=== PATIENT | female | born 1925 | race Caucasian/White ===

== ENCOUNTER 2017-02-15 10:28 | Inpatient (IN) | payer MEDICARE, OTHER ==
--- NOTE | 2017-02-07 23:24 | HP ---
HISTORY AND PHYSICAL: DATE OF OFFICE VISIT: 02/07/17 DATE OF SURGERY: 02/15/17 SURGEON: Savanah Jarrell MD PROCEDURE: Right total hip arthroplasty. CHIEF COMPLAINT: Right hip pain. HISTORY OF PRESENT ILLNESS: Ms. Tavares is an 89-year-old female with complaints of right hip pain. She has failed conservative management and has elected to proceed with a right total hip arthroplasty, which is scheduled for 02/15/[address] Jarrell. PAST MEDICAL HISTORY: 1. Hypertension. 2. High cholesterol. 3. Osteoarthritis. 4. Melanoma. PAST SURGICAL HISTORY: 1. Hysterectomy. 2. Tonsillectomy. 3. Right carpal tunnel release. 4. Left ear surgery. 5. Right rotator cuff repair. MEDICATIONS: 1. Amlodipine. 2. Aspirin. 3. Fentanyl patch. 4. Losartan/hydrochlorothiazide. ALLERGIES: No known drug allergies. FAMILY HISTORY: Breast cancer and lung cancer. SOCIAL HISTORY: She is an 89-year-old female, lives alone. She does not smoke or use drugs. REVIEW OF SYSTEMS: A complete 14-point review of systems is reviewed with the patient and all is negative or noncontributory. PHYSICAL EXAMINATION GENERAL: She is well developed and well nourished, in no acute distress. VITAL SIGNS: She stands 5 feet and 2 inches tall and weighs 130 pounds. Her blood pressure 162/79 and her heart rate 70. HEENT: Normocephalic, atraumatic. NECK: Supple. No palpable lymph nodes. PULMONARY: Lungs are clear to auscultation bilaterally. No wheezes, rhonchi, or rales. CARDIO: Regular rate and rhythm. Strong S1 and S2. No murmurs, gallops, or rubs. ABDOMEN: Soft, nontender, and nondistended. MUSCULOSKELETAL: Right lower extremity, the skin is intact. She has a limited range of motion with internal and external rotation of her right hip. She has 2 + dorsalis pedis pulses. Lower extremity muscle group strengths were intact at 5/5. She walks with a slightly antalgic type gait favoring the right hip. NEUROLOGIC: She is alert and oriented x3. Cranial nerves II through XII are intact. ASSESSMENT AND PLAN: Ms. Tavares is an 89-year-old female with complaints of right hip pain secondary to advanced osteoarthritis. She has failed conservative management and has elected to proceed with a right total hip arthroplasty, the surgery is scheduled for 02/15/[address] Jarrell discussed the risks and benefits of the surgery at today's visit and all of her questions were answered. Coumadin was sent to her pharmacy today for post- operative DVT prophylaxis. She has an extreme INTOLERANCE TO ALL PAIN MEDICATIONS at today's visit. I did preemptively sent Zofran for postoperative nausea as well as Colace and the pain medication will be decided following the surgery. She will see Dr. Jarrell back in 10 to 14 days after the surgery. TARIQ LIU [id number]/CPS #: [id number] MTDD
[~2017-02-15 10:28] MED LIST: Buffered Lidocaine 1% SYRIN* 3 ML/SYR SYRINGE INTRADERM ONE; Dexamethasone IV* 4 MG/ML 1 ML (4 MG) IV SLOW PU ONE; DiMENhydriNATE IV* 50 MG/ML VIAL IV PUSH PRN; Famotidine IV* 10 MG/ML 2 ML (20 mg) IV ONE; HYDROmorphone* 1 MG/ML 1 ML SYR IV PRN; HYDROmorphone* 1 MG/ML 1 ML SYR ONE; Meperidine SYRINGE* 50 MG/ML ONE; Midazolam* 1 MG/ML 2 ML VIAL (2 MG) ONE; Morphine PF AMP (0.5MG/ML)* 5 MG/10 ML AMP ONE; Ondansetron INJ* 2 MG/ML VIAL IV PRN; PROCHLORPERAZINE INJ 5 MG/ML 2 ML VIAL IV PRN; fentaNYL* 50 MCG/ML 2 ML VIAL (100 MCG VIAL) IV PRN; fentaNYL* 50 MCG/ML 2 ML VIAL (100 MCG VIAL) ONE
[2017-02-15] MEDS ORDERED: fentaNYL* 50 MCG/ML 2 ML VIAL (100 MCG VIAL) ONE ×3 (11:03→15:44)
[2017-02-15] MEDS ORDERED: HYDROmorphone* 1 MG/ML 1 ML SYR ONE ×3 (11:03→15:42)
[2017-02-15] MEDS ORDERED: ceFAZolin 2 GM PREMIX(*) 2 GM/50 ML BAG IVPB ONE (11:30)
[2017-02-15] MEDS ORDERED: Famotidine IV* 10 MG/ML 2 ML (20 mg) ONE (11:30)
[2017-02-15] MEDS ORDERED: Dexamethasone IV* 4 MG/ML 1 ML (4 MG) ONE (11:30)
[2017-02-15] MEDS ORDERED: Meperidine SYRINGE* 50 MG/ML ONE (14:35)
[2017-02-15] MEDS ORDERED: EPHEDrine (Pressors)* 50 MG/ML VIAL ONE (14:56)
[2017-02-15] MEDS ORDERED: Naloxone* 0.4 MG/ML 1 ML VIAL IV PRN (14:59)
[2017-02-15] MEDS ORDERED: oxyCODONE/Acetamin 5/325 MG* TAB PO PRN ×3 (14:59→16:18)
[2017-02-15] MEDS ORDERED: PROCHLORPERAZINE INJ 5 MG/ML 2 ML VIAL IV PRN (14:59)
[2017-02-15] MEDS ORDERED: Ondansetron INJ* 2 MG/ML VIAL IV PRN (14:59)
[2017-02-15] MEDS ORDERED: DiMENhydriNATE IV* 50 MG/ML VIAL IV PUSH PRN (14:59)
--- NOTE | 2017-02-15 15:32 | RAD ---
INDICATION: Right total hip replacement surgery. COMPARISON: Comparison is made with a prior x-ray study of the right hip from January 28, 2017. TECHNIQUE: An AP view of the pelvis was obtained in the operating room. FINDINGS: The patient is undergoing a total right hip replacement surgery. The acetabular prostheses is in place. There is a femoral prostheses template in place. IMPRESSION: INTRAOPERATIVE CONTROL FILMS.
[2017-02-15] MEDS ORDERED: Morphine INJ* 2 MG/ML 1 ML SYRINGE IV PRN (16:18)
[2017-02-15] MEDS ORDERED: LACTULOSE* 30 ML UDC PO PRN (16:18)
[2017-02-15] MEDS ORDERED: Bisacodyl SUPP* 10 MG SUPP PR PRN (16:18)
[2017-02-15] MEDS ORDERED: Ondansetron TAB* 4 MG PO PRN (16:18)
[2017-02-15] MEDS ORDERED: oxyCODONE TAB* 5 MG TAB PO PRN (16:18)
[2017-02-15] MEDS ORDERED: diPHENhydraMINE IV* 50 MG/ML 1 ml VIAL (BENADRYL) IV PRN (16:18)
[2017-02-15] MEDS ORDERED: Polyethylene Glycol 3350* 17 GM PACKET PO PRN (16:18)
[2017-02-15] MEDS ORDERED: Acetaminophen TAB* 325 MG PO PRN (16:18)
[2017-02-15] MEDS ORDERED: Meclizine TAB* 12.5 MG PO PRN (16:29)
[2017-02-15] MEDS ORDERED: Warfarin TAB(*) 6 MG PO ONE ×2 (17:00→20:00)
--- NOTE | 2017-02-15 17:19 | RAD ---
HISTORY: Status post right hip arthroplasty COMPARISONS: February 15, 2017 VIEWS: 3, frontal views of the pelvis with frontal and crosstable lateral views of the right hip FINDINGS: BONE DENSITY: Normal. BONES: The patient is status post right hip arthroplasty. There is no hardware failure or osteolysis. JOINTS: The patient is status post right hip arthroplasty. There is advanced osteoarthritis of left hip ALIGNMENT: There is no dislocation. SOFT TISSUES: Unremarkable. OTHER FINDINGS: None. IMPRESSION: STATUS POST RIGHT HIP ARTHROPLASTY
[2017-02-15] MEDS ORDERED: Ondansetron INJ* 2 MG/ML VIAL ONE (18:38)
[2017-02-15] MEDS: ceFAZolin 1 GM in Dextrose (*) 1 GM/50 ML BAG IVPB SCH (20:07)
[2017-02-15] MEDS: Docusate CAP* 100 MG PO SCH (20:07)
[2017-02-15] MEDS ORDERED: AMLODIPINE BESYLATE PO SCH (21:00)
--- NOTE | 2017-02-15 22:19 | CONS ---
CONSULTATION REPORT: DATE OF CONSULT: 02/15/17 REQUESTING PHYSICIAN FOR CONSULT: Dr. Jarrell. PRIMARY CARE PROVIDER: Dr. Harris. ATTENDING PHYSICIAN WHILE IN THE HOSPITAL: Addi Burnett MD (report is being dictated by Abelino Hartley NP). REASON FOR MEDICAL CONSULTATION: Medical management of comorbid medical conditions. HISTORY OF PRESENT ILLNESS: I refer you to Dr. Jarrell's H and P for further details. In short, Ms. Tavares is an 89-year-old female patient who has been dealing with right hip pain for sometime. She had failed conservative management and she sought care with Dr. Jarrell and it was felt that she would require and benefit from a total hip replacement. She underwent perioperative risk stratification with her primary and underwent the procedure today. She was evaluated in the PACU. She had spinal anesthetic. She is awake and alert currently. She denies having any chest pain, shortness of breath, denies any abdominal pain. She says she does not feel nauseous, denies feeling lightheaded. She states she just feels a little tired, but states she does not feel like she is going to faint and she says that her pain is well controlled. She caries a history of hypertension, hyperlipidemia, melanoma and osteoarthritis. Because of this, we were asked to evaluate in consult. PAST MEDICAL HISTORY: Significant for: 1. Hypertension. 2. Hyperlipidemia. 3. Osteoarthritis. 4. Melanoma. PAST SURGICAL HISTORY: She has had: 1. Hysterectomy. 2. Tonsillectomy. 3. Carpal tunnel. 4. Left ear surgery. 5. Rotator cuff surgery. HOME MEDICATIONS: According to the list that she provided preoperatively include: 1. Hyzaar 1 tablet p.o. daily. 2. Amlodipine 2 tablets p.o. b.i.d.. 3. Meclizine half tablet to 1 tablet p.o. t.i.d. as needed. 4. Fentanyl patch 37.5 mcg every 72 hours topically. 5. Aspirin 81 mg daily. 6. Ibuprofen 1 to 2 tablets p.o. every 4 hours as needed. 7. Zyrtec 10 mg p.o. daily as needed. 8. Tylenol 500 mg p.o. every 4 hours as needed. ALLERGIES TO MEDICATIONS: Include NARCOTIC PAIN MEDICATIONS that cause her to become nauseated, particularly if she takes them p.o. FAMILY HISTORY: Reviewed and essentially noncontributory. There was no reports of cancers, but her father did have a heart attack. SOCIAL HISTORY: She is a former smoker, but she quit well over 50 years ago. She does not drink alcohol. Surrogate decision maker is her daughter. REVIEW OF SYSTEMS: There is no documented fever. She denied having any significant weight change. There is no double vision. There is no ear discharge. She denies having any rhinorrhea. There is no sore throat. No thyroid enlargement. Denies having any chest pain. There is no orthopnea. No nocturnal dyspnea. There is no abdominal pain. No nausea. No vomiting. No dysuria. No frequency. No loss of consciousness. No pruritus. No skin ulcerations. Review of 14 systems completed, all others negative. PHYSICAL EXAM: Vital Signs: Blood pressure 102/52, pulse 58, respirations 18, O2 saturation 98%, temperature 96.8. General: At this time, Ms. Tavares is an 89- year-old female patient. She is sitting in the PACU bed. She does not appear to be in any acute distress. HEENT: Head is atraumatic, normocephalic. Eyes: EOMs are intact. Sclerae anicteric and not pale. Neck was supple. Throat: Oral mucosa appears to be moist. No oropharyngeal erythema. Heart: Sounds S1 and S2. Regular rate and rhythm. No murmurs, rubs, or gallops. Lungs : Clear to auscultation bilaterally. No wheezes, rales, or rhonchi. Abdomen: Soft, it is flat and nontender. Bowel sounds are present. Extremities: Pulses are 2+ throughout. Distal CSM checks are intact. She can move the upper extremities with 5/5 strength. She is not moving the lower extremities at this point because they are in a hip abduction pillow. Neurologically, she is awake, she is alert, she is oriented x3. Her tongue is midline. Her developing machine tender are equal. She has no gross focal deficits. Her speech is clear. The skin is intact with the exception she has an incision to the right hip, which was covered with a dressing, which is clean, dry and intact. DIAGNOSTIC STUDIES/LAB DATA: The labs which were preop labs revealed WBC 9.8, RBC of 4.32, hemoglobin 12.9, hematocrit of 39, and a platelet count of 300. There was an INR of 0.86. The sodium was 139, potassium 3.5, chloride 101, bicarb 30, BUN 20, creatinine 0.72, glucose 90. AST 18, ALT 13. Urine showed 1 + leukocyte esterase, present squamous epithelial cells. The microbiology was negative. Chest x-ray preop showed no evidence of active cardiopulmonary disease. There was an EKG preoperatively which showed normal sinus rhythm, rate of 64, no ST elevations or T wave inversions. Old medical records are reviewed. ASSESSMENT AND PLAN: Ms. Tavares is an 89-year-old female patient coming into the orthopedic services today for an elective right total hip. We were asked to evaluate in consult. My recommendations at this point are: 1. Status post right total hip. I will defer the management to Dr. Jarrell and her team. 2. Hypertension. Postoperatively, she is running right around 110 systolic and she did receive spinal anesthetic, so I am going to hold her blood pressure medications. We can slowly restart them as her blood pressure tolerates. 3. Hyperlipidemia. Continue with her current medical arrangement. 4. Osteoarthritis. Follow with primary. 5. History of melanoma. Follow with primary. 6. DVT prophylaxis. We will defer to the primary team. 7. Code status. Full code. 8. Pain management. She does have intolerance to medications, p.o. narcotics, they cause her to be nauseous. I would recommend premedication with the antiemetics for the time being or possibly sticking to topical or non-narcotic pain analgesia, but I will defer the management of that to Dr. Jarrell and her team. 9. Code status: She is a full code. 10. Fluids, electrolytes and nutrition. She can have a regular diet. TIME SPENT: Time spent on this consult was 60 minutes, greater than half time spent with [id number] with the patient obtaining my history and physical, the other half of the time spent going over the plan of care with the patient and implementing the plan of care. I discussed the plan of care with my attending, Dr. Burnett, who is in agreement. ABELINO HARTLEY NP CC: Dr. Jarrell; Dr. Harris* [id number]/CPS #: [id number] CLIFF
[2017-02-16] MEDS: ceFAZolin 1 GM in Dextrose (*) 1 GM/50 ML BAG IVPB SCH ×2 (03:48→11:50)
[2017-02-16] MEDS ORDERED: oxyCODONE TAB* 5 MG TAB PO PRN (06:00)
[2017-02-16] MEDS ORDERED: oxyCODONE/Acetamin 5/325 MG* TAB PO PRN ×2 (06:00)
[2017-02-16] MEDS ORDERED: Morphine INJ* 2 MG/ML 1 ML SYRINGE IV PRN (06:00)
[2017-02-16] MEDS ORDERED: diPHENhydraMINE IV* 50 MG/ML 1 ml VIAL (BENADRYL) IV PRN (06:00)
[2017-02-16 06:02] LABS: Hematocrit 32 % (35-47); Hemoglobin 10.4 g/dl (12.0-16.0)
[2017-02-16 06:25] LABS: BUN/Creatinine Ratio 22.7 (8-20); Calcium 9.1 mg/dL (8.6-10.3); EGFR African American 108.4 (>60); EGFR Non-African American 84.3 (>60); Potassium 3.8 mmol/L (3.5-5.0)
--- NOTE | 2017-02-16 07:36 | PN ---
Progress Note - Progress Note SOAP: Subjective: Pt. is doing well, nausea and vomiting yesterday. Objective: RLE - thigh soft, distally +df/pf, full sens lt, 2+ dp pulse. Vital Signs: Temp Pulse Resp BP Pulse Ox 97.0 F 54 16 128/43 99 02/16/17 03:38 02/16/17 03:38 02/16/17 03:38 02/16/17 03:38 02/16/17 03:38 Laboratory Results - last 24 hr 02/16/17 02/16/17 02/16/17 05:25 05:25 05:25 Hgb 10.4 L Hct 32 L INR (Anticoag Therapy) 0.99 Sodium 137 Potassium 3.8 Chloride 102 Carbon Dioxide 28 Anion Gap 7 BUN 15 Creatinine 0.66 Est GFR ( Amer) 108.4 Est GFR (Non-Af Amer) 84.3 BUN/Creatinine Ratio 22.7 H Glucose 140 H Calcium 9.1 Assessment: 89 yo F pod 1 s/p RTHA Plan: wbat with post hip precautions pt/ot d/c plan home vs snf - likely snf pmru consult 6 mg coumadin with lovenox
[2017-02-16] MEDS: Docusate CAP* 100 MG PO SCH ×2 (08:26→20:39)
[2017-02-16] MEDS ORDERED: Scopolamine 1.5 mg* PATCH TRANSDERM PRN (08:32)
[2017-02-16] MEDS: Acetaminophen TAB* 325 MG PO SCH ×3 (08:52→20:39)
[2017-02-16] MEDS ORDERED: fentaNYL PATCH 12 MCG/HR TRANSDERM SCH (09:00)
[2017-02-16] MEDS ORDERED: Losartan/HCTZ 100/25 (NF) TAB PO SCH (09:00)
[2017-02-16] MEDS ORDERED: fentaNYL PATCH 25 MCG/HR TRANSDERM SCH (09:00)
--- NOTE | 2017-02-16 09:03 | OP ---
OPERATIVE REPORT: DATE OF OPERATION: 02/15/17 DATE OF : [birth year] SURGEON: Savanah Jarrell MD CATTLE ALLEY WORKER: TARIQ Burgess Physician behavioral assistant did help throughout the entire procedure with prepping, draping, retraction, man ipulation of the leg, and wound closure. ANESTHESIOLOGIST: Moreno Thibodeaux MD ANESTHESIA: Spinal. PRE-OPERATIVE DIAGNOSES: Severe end-stage degenerative osteoarthritis of the right hip, development of hip dysplasia. POST-OPERATIVE DIAGNOSES: Severe end-stage degenerative osteoarthritis of the right hip, developmen t of hip dysplasia. OPERATIVE PROCEDURE: Right total hip arthroplasty. COMPLICATIONS: None. ESTIMATED BLOOD LOSS: 300 cc. SPECIMEN: Femoral head and acetabular reaming, sent to pathology. Cystic material collected from s uperior acetabular region and abductor tendon region, sent to pathology. HARDWARE USED: This is uncemented Linda hip hardware. For the cup, a Trident 52E acetabular stephen l, 220 mm cancellous bone screws. For the poly, a Trident X3 36E 0-degree polyethylene inserts. Fo r the femur, an Accolade TMZF size 2.5 with a 127-degree neck. For the head, an LFIT V40 femoral he ad 36, +0. BRIEF HISTORY/INDICATION: Ms. Tavares is an 89-year-old female with 6 months of increasingly esteban re right hip and knee pain. Plain films showed [id number] arthritis in the right hip joint. She failed to improved with antiinflammatories, pain medication, physical therapy, and ambulatory assist toña devices. She elected to undergo right total hip arthroplasty due to severe pain and decreased q uality of life. Informed consent was obtained from the patient. She understood the risks of the procedure included, but were not limited to bleeding, infection, damage to nearby structures, continued pain, need for further surgery, intraoperative fracture, nerve palsy, hardware failure or loosening, dislocation, l eg length discrepancy, stroke, heart attack, blood clot, and . She wished to proceed. INTRAOPERATIVE FINDINGS: Intraoperatively, the patient was noted to have severe end-stage arthritis of the hip joint with complete loss of cartilage along the acetabulum and femoral head. She had a shallow dysplastic acetabulum. Osteopenia was noted. Near the abductor kofi and superior acetab ular region, there was a cystic structure, which did have gelatinous material, this was then collect ed and sent to pathology. DESCRIPTION OF PROCEDURE: Ms. Tavares was identified in the preanesthesia unit. Her right lower e xtremity was marked as the correct operative site. Informed consent was signed and placed in the art. The patient was taken to the operative room and placed under spinal anesthesia. A Thomas sebastian ter was placed. She was placed in the left lateral decubitus position of the peg board. All bony p rominences were well padded. Right lower extremity was prepped and draped in the usual sterile fash ion. Preop time-out was made to correctly identify the patient's side and site. Appropriate periop erative antibiotics were given within 1 hour of incision. A 12 cm posterior hip incision was made with a 10 blade and carried down to the lateral fascial laye r. Lateral fascial layer was then incised in line with the skin incision. A Charnley retractor was placed. Upon placement of the C-retractor superior under the gluteus medius, gelatinous material w as encountered, which appeared to be from a cystic structure involving the superior acetabular regio n abductors. This was collected and sent to pathology. The piriformis and conjoined tendons were i dentified. These were elevated off the posterolateral femur using electrocautery and tagged with tw o #5 Ethibond. Electrocautery was then used to make a standard posterolateral capsular flap. This was also tagged with two #5 Ethibond. The hip was carefully dislocated. The lesser troch to the center of the femoral head measured 52 mm . An oscillating saw was used to make the appropriate femoral neck cut. Femoral head was sent to p athology. The femur was carefully retracted anteriorly. After appropriate placement of retractors, the acetab ulum was easily visualized. Long-handled knife was used to remove any remaining labrum from the vaibhav tabular rim. The acetabulum was sequentially reamed up to a size 51. It was noted that the acetabu lum was dysplastic and shallow. Size 51 trial had satisfactory stability and fit. Therefore, a 52 T rident acetabular cup was chosen as the final implant. A good bleeding bone bed had been establishe d. There were some cystic structures along the superior acetabulum. A small curette was used to re move any cystic material from the cyst. Acetabular reamings were used as autograft, bone graft, and these cystic areas were filled in with the bone graft. The Trident 52E acetabular cup was then imp acted into the acetabulum. There was good stability. There was appropriate anteversion and abducti on angle. Two 20-mm cancellous bone screws were then placed in the superoposterior quadrant for ext ra stability. A 36E Trident X3 0-degree polyethylene insert was chosen at the liner. This was impa cted into the acetabular cup. Stability of the liner was checked and rechecked and noted to be stab le. Attention was next turned to preparation of the proximal femur. Canal finder was used to enter the proximal femur. The proximal femur was sequentially broached up to a size 2.5. A 2.5 broach had ex cellent stability. A 127 neck trial was chosen. A 36, +0 femoral head trial was chosen. The lesser troch to the center of the femoral head measured exactly 52 mm. The hip was reduced and taken thro [facility] range of motion. The hip was stable in all positions. The hip was carefully dislocated. All trials were carefully removed. Final implant was an Accolade TMZF size 2.5 with a 127-degree neck angle. This was impacted into the femoral canal without diffi culty. There was appropriate anteversion and excellent stability. An LFIT V40 anatomic metal femor al head was chosen, 36, +0. This was impacted onto the femoral neck without difficulty. The hip was carefully reduced. The hip was taken through range of motion and was stable in all posi tions. The hip was copiously irrigated with sterile saline. Previously tagged capsule and tendons w ere reapproximated to the posterolateral femur through 2 trochanteric drill holes. The lateral fasc ial layer was closed using an interrupted #1 Vicryl's. The rest of the incision was closed in a lay ered fashion using 0 and 2-0 Vicryl's. Skin was closed using running 3-0 Monocryl and Dermabond. S terile Adaptic, 4x4s, and paper tapes were used to cover the incision. The patient's anesthesia was reversed without difficulty. She was taken to the PACU in stable condition. Intended weightbearing will be weightbearing as tolerated. Intended DVT prophylaxis will be Coumadin with a Lovenox bridg e. [id number]/[facility] #: [id number]
[2017-02-16] MEDS: Ondansetron TAB* 4 MG PO PRN (11:59)
[2017-02-16] MEDS ORDERED: Enoxaparin(*) 30 MG/0.3 ML SYR SUBCUT SCH (15:00)
--- NOTE | 2017-02-16 16:38 | PN ---
Subjective Date of Service: 02/16/17 Interval History: Patient seen and examined at bedside. Pt states that she continues to have nausea. Reports that pain is controlled. Denies fever, chills, shortness of breath, chest discomfort, V/D. Family History: Unchanged from Admission Social History: Unchanged from Admission Past Medical History: Unchanged from Admission Objective Active Medications: Acetaminophen (Tylenol Tab*) 975 mg PO Q6H EMILY Bisacodyl (Dulcolax Supp*) 10 mg OR DAILY PRN Reason: constipation Diphenhydramine HCl (Benadryl Iv*) 12.5 mg IV Q6HR PRN Reason: PRURITIS Docusate Sodium (Colace Cap*) 100 mg PO BID EMILY Enoxaparin Sodium (Lovenox(*)) 30 mg SUBCUT Q24H EMILY Fentanyl (Duragesic Patch 25 Mcg/Hr*) 25 mcg TRANSDERM Q72H EMILY Fentanyl (Duragesic Patch 12 Mcg/Hr *) 12 mcg TRANSDERM Q72H EMILY Lactated Ringer's (Lactated Ringers 1000 Ml Bag*) 1,000 mls @ 100 mls/hr IV PER RATE EMILY Lactulose (Lactulose*) 30 ml PO Q6H PRN Reason: constipation Magnesium Hydroxide (Milk Of Magnesia Liq*) 30 ml PO Q6H PRN Reason: constipation Morphine Sulfate (Morphine Inj (Syringe)*) 2 mg IV Q2HR PRN Reason: PAIN Ondansetron HCl (Zofran Tab*) 4 mg PO Q6HR PRN Reason: NAUSEA Oxycodone HCl (Roxycodone Tab*) 10 mg PO Q4HR PRN Reason: PAIN - SEVERE Oxycodone/Acetaminophen (Percocet 5/325 Tab*) 1 tab PO Q3HR PRN Reason: PAIN - MODERATE Oxycodone/Acetaminophen (Percocet 5/325 Tab*) 2 tab PO Q3HR PRN Reason: PAIN - MODERATE Pharmacy Profile Note (Coumadin Daily Reminder*) 1 note FOLLOW UP [facility] Pharmacy Profile Note (Fentanyl Patch Check Q Shift) 1 note N/A 0700,1900 [facility] Polyethylene Glycol/Electrolytes (Miralax*) 17 gm PO DAILY PRN Reason: Constipation Scopolamine (Transderm-Scop 1.5 Mg Patch*) 1 patch TRANSDERM Q72H PRN Reason: NAUSEA Warfarin Sodium (Coumadin Tab(*)) 6 mg PO DAILY@[facility] Reason: Protocol Vital Signs 02/15/17 02/15/17 02/15/17 16:30 16:45 17:00 Temperature Pulse Rate 55 58 52 Respiratory 18 18 18 Rate Blood Pressure 101/48 102/52 115/63 (mmHg) O2 Sat by Pulse 97 98 98 Oximetry 02/15/17 02/15/17 02/15/17 17:15 17:30 17:47 Temperature Pulse Rate 56 54 47 Respiratory 18 18 15 Rate Blood Pressure 124/55 130/60 147/57 (mmHg) O2 Sat by Pulse 98 98 100 Oximetry 02/15/17 02/15/17 02/15/17 18:07 18:10 18:16 Temperature 97.0 F Pulse Rate 47 Respiratory 15 15 Rate Blood Pressure 147/57 (mmHg) O2 Sat by Pulse 100 100 Oximetry 02/15/17 02/15/17 02/15/17 18:50 19:56 20:00 Temperature 96.4 F 96.4 F Pulse Rate 46 59 Respiratory 14 14 16 Rate Blood Pressure 118/43 117/44 (mmHg) O2 Sat by Pulse 100 100 Oximetry 02/15/17 02/15/17 02/15/17 20:07 21:45 23:56 Temperature 96.9 F Pulse Rate 52 51 Respiratory 16 14 16 Rate Blood Pressure 123/48 115/45 (mmHg) O2 Sat by Pulse 100 100 Oximetry 02/15/17 02/16/17 02/16/17 23:58 00:02 01:02 Temperature 97.0 F Pulse Rate Respiratory 16 16 Rate Blood Pressure (mmHg) O2 Sat by Pulse 100 Oximetry 02/16/17 02/16/17 02/16/17 02:02 02:12 03:15 Temperature Pulse Rate Respiratory 16 16 Rate Blood Pressure (mmHg) O2 Sat by Pulse 99 Oximetry 02/16/17 02/16/17 02/16/17 03:38 07:25 07:53 Temperature 97.0 F 97.5 F Pulse Rate 54 58 Respiratory 16 15 15 Rate Blood Pressure 128/43 130/47 (mmHg) O2 Sat by Pulse 99 97 97 Oximetry 02/16/17 02/16/17 02/16/17 11:25 15:46 15:53 Temperature 97.6 F 98.0 F Pulse Rate 53 67 Respiratory 14 15 Rate Blood Pressure 128/43 133/56 (mmHg) O2 Sat by Pulse 99 99 99 Oximetry Oxygen Devices in Use Now: None Appearance: NAD, laying in bed Eyes: No Scleral Icterus, PERRLA Ears/Nose/Mouth/Throat: Mucous Membranes Moist Respiratory: Symmetrical Chest Expansion and Respiratory Effort, Clear to Auscultation Cardiovascular: NL Sounds; No Murmurs; No JVD, RRR Abdominal: NL Sounds; No Tenderness; No Distention Extremities: No Edema Skin: No Rash or Ulcers Neurological: Alert and Oriented x 3, NL Muscle Strength and Tone Lines/Tubes/Other Access: Clean, Dry and Intact Peripheral IV - site benign Nutrition: Taking PO's Result Diagrams: 02/16/17 05:25 02/16/17 05:25 Assess/Plan/Problems-Billing Assessment: Ms. Tavares is an 89 yo female with PMH significant for HTN, HLD, and osteoarthritis who presented to the hospital for an elective right total hip replacement with Dr. Jarrell on 02/15/17. - Patient Problems (1) Status post total hip replacement, right Code(s): Z96.641 - PRESENCE OF RIGHT ARTIFICIAL HIP JOINT SNOMED Code(s): 029508685522 Comment: - POD #1, management per Ortho - Trend HH - Continue pain management, bowel regime and OT/PT (2) HTN (hypertension) Code(s): I10 - ESSENTIAL (PRIMARY) HYPERTENSION SNOMED Code(s): 41813226 Comment: - Normotensive - Continue to hold Amlodipine and Hyzarr. - Consider resuming Amlodipine in AM if blood pressure allows. (3) HLD (hyperlipidemia) Code(s): E78.5 - HYPERLIPIDEMIA, UNSPECIFIED SNOMED Code(s): 36561686 Comment: - Not currently on medication (4) DVT prophylaxis Code(s): UVG1479 - SNOMED Code(s): 124599048 Comment: - Lovenox bridge to Warfarin per Ortho (5) Full code status Code(s): Z78.9 - OTHER SPECIFIED HEALTH STATUS SNOMED Code(s): 986699423 Status and Disposition: Inpatient. Disposition per Orthopedics.
[2017-02-16] MEDS ORDERED: Warfarin TAB(*) 6 MG PO SCH (17:00)
[2017-02-16] MEDS: fentaNYL Patch Check Q Shift 1 NOTE SCH (19:03)
[2017-02-17] MEDS: Magnesium Hydroxide LIQ* 30 ML UDC PO PRN ×2 (02:27→08:30)
[2017-02-17] MEDS: Acetaminophen TAB* 325 MG PO SCH ×2 (04:11→07:29)
[2017-02-17 05:23] LABS: Hematocrit 30 % (35-47); Hemoglobin 9.9 g/dl (12.0-16.0)
[2017-02-17] MEDS: fentaNYL Patch Check Q Shift 1 NOTE SCH (06:40)
[2017-02-17 07:39] VITALS: BP 142/60
[2017-02-17] MEDS: Ondansetron TAB* 4 MG PO PRN (08:30)
[2017-02-17] MEDS: Docusate CAP* 100 MG PO SCH (08:30)
--- NOTE | 2017-02-17 08:30 | PN ---
Progress Note - Progress Note SOAP: Subjective: [89 yo F pod 2 s/p RTHA. C/O nausea overnight, improved this AM. VSS, afebrile ] Objective: General- Resting comfortably in bed, eating applesauce. MSK- Incision c/D/I, no erythema noted, no drainage, PT pulses 2+ b/l, minimal LE edema b/l. Vital Signs Temp 98.3 F 02/17/17 07:21 Pulse 79 02/17/17 07:21 Resp 18 02/17/17 08:00 BP 142/60 02/17/17 07:21 Pulse Ox 93 02/17/17 07:59 Intake & Output 02/16/17 02/17/17 02/17/17 18:59 06:59 18:59 Intake Total 2118 280 Output Total 250 750 Balance 1868 -470 Intake: IV Fluids 1503 ABX - CEFAZOLIN 124 LR 1379 Oral 615 280 Output: Urine 150 750 Thomas 100 Laboratory Results - last 24 hr 02/17/17 02/17/17 05:08 05:08 Hgb 9.9 L Hct 30 L INR (Anticoag Therapy) 2.02 H Assessment: [89 yo F pod 2 s/p RTHA] Plan: [- D/C today to [facility] - Coumadin/ lovenox - INR theraputic- hold lovenox, hold coumadin dose tonight - Continue PT OT ] Active Medications Generic Name Dose Route Start Last Admin Trade Name Freq PRN Reason Stop Dose Admin Acetaminophen 975 mg 02/16/17 09:00 02/17/17 07:29 Tylenol Tab* PO 975 mg Q6H EMILY Administration Bisacodyl 10 mg 02/15/17 16:18 Dulcolax Supp* DC DAILY PRN constipation Diphenhydramine HCl 12.5 mg 02/16/17 06:00 Benadryl Iv* IV Q6HR PRN PRURITIS Docusate Sodium 100 mg 02/15/17 21:00 02/16/17 20:39 Colace Cap* PO 100 mg BID EMILY Administration Enoxaparin Sodium 30 mg 02/16/17 15:00 02/16/17 15:37 Lovenox(*) SUBCUT 30 mg Q24H EMILY Administration Fentanyl 25 mcg 02/16/17 09:00 02/16/17 08:49 Duragesic Patch 25 Mcg/Hr* TRANSDERM 25 mcg Q72H EMILY Administration Fentanyl 12 mcg 02/16/17 09:00 02/16/17 08:48 Duragesic Patch 12 Mcg/Hr * TRANSDERM 12 mcg Q72H EMILY Administration Lactulose 30 ml 02/15/17 16:18 Lactulose* PO Q6H PRN constipation Magnesium Hydroxide 30 ml 02/15/17 16:18 02/17/17 02:27 Milk Of Magnesia Liq* PO 30 ml Q6H PRN Administration constipation Ondansetron HCl 4 mg 02/16/17 06:00 02/16/17 11:59 Zofran Tab* PO 4 mg Q6HR PRN Administration NAUSEA Oxycodone HCl 10 mg 02/16/17 06:00 Roxycodone Tab* PO Q4HR PRN PAIN - SEVERE Oxycodone/Acetaminophen 1 tab 02/16/17 06:00 Percocet 5/325 Tab* PO Q3HR PRN PAIN - MODERATE Oxycodone/Acetaminophen 2 tab 02/16/17 06:00 Percocet 5/325 Tab* PO Q3HR PRN PAIN - MODERATE Pharmacy Profile Note 1 note 02/16/17 17:00 02/16/17 17:00 Coumadin Daily Reminder* FOLLOW UP 1 note 1700 EMILY Administration Pharmacy Profile Note 1 note 02/16/17 19:00 02/17/17 06:40 Fentanyl Patch Check Q Shift N/A 1 note 0700,1900 EMILY Administration Polyethylene Glycol/Electrolytes 17 gm 02/15/17 16:18 Miralax* PO DAILY PRN Constipation Scopolamine 1 patch 02/16/17 08:32 02/16/17 08:52 Transderm-Scop 1.5 Mg Patch* TRANSDERM 1 patch Q72H PRN Administration NAUSEA Warfarin Sodium 6 mg 02/16/17 17:00 02/16/17 17:00 Coumadin Tab(*) PO 6 mg DAILY@1700 EMILY Administration Protocol
--- NOTE | 2017-02-17 08:47 | PN ---
Subjective Date of Service: 02/17/17 Interval History: Patient seen and examined at bedside. Pt states that she continues to have nausea. Reports feeling stuff, pain controlled. Denies fever, chills, shortness of breath, chest discomfort, V/D. Family History: Unchanged from Admission Social History: Unchanged from Admission Past Medical History: Unchanged from Admission Objective Active Medications: Acetaminophen (Tylenol Tab*) 975 mg PO Q6H EMILY Bisacodyl (Dulcolax Supp*) [address] DAILY PRN Reason: constipation Diphenhydramine HCl (Benadryl Iv*) 12.5 mg IV Q6HR PRN Reason: PRURITIS Docusate Sodium (Colace Cap*) 100 mg PO BID EMILY Enoxaparin Sodium (Lovenox(*)) 30 mg SUBCUT Q24H EMILY Fentanyl (Duragesic Patch 25 Mcg/Hr*) 25 mcg TRANSDERM Q72H EMILY Fentanyl (Duragesic Patch 12 Mcg/Hr *) 12 mcg TRANSDERM Q72H EMILY Lactulose (Lactulose*) 30 ml PO Q6H PRN Reason: constipation Magnesium Hydroxide (Milk Of Magnesia Liq*) 30 ml PO Q6H PRN Reason: constipation Ondansetron HCl (Zofran Tab*) 4 mg PO Q6HR PRN Reason: NAUSEA Oxycodone HCl (Roxycodone Tab*) 10 mg PO Q4HR PRN Reason: PAIN - SEVERE Oxycodone/Acetaminophen (Percocet 5/325 Tab*) 1 tab PO Q3HR PRN Reason: PAIN - MODERATE Oxycodone/Acetaminophen (Percocet 5/325 Tab*) 2 tab PO Q3HR PRN Reason: PAIN - MODERATE Pharmacy Profile Note (Coumadin Daily Reminder*) 1 note FOLLOW UP 1700 [facility] Pharmacy Profile Note (Fentanyl Patch Check Q Shift) 1 note N/A 0700,1900 [facility] Polyethylene Glycol/Electrolytes (Miralax*) 17 gm PO DAILY PRN Reason: Constipation Scopolamine (Transderm-Scop 1.5 Mg Patch*) 1 patch TRANSDERM Q72H PRN Reason: NAUSEA Warfarin Sodium (Coumadin Tab(*)) 6 mg PO DAILY@1700 [facility] Vital Signs 02/16/17 02/16/17 02/16/17 08:48 08:49 11:25 Temperature 97.6 F Pulse Rate 53 Respiratory 16 16 14 Rate Blood Pressure 128/43 (mmHg) O2 Sat by Pulse 99 Oximetry 02/16/17 02/16/17 02/16/17 15:46 15:53 19:19 Temperature 98.0 F 98.1 F Pulse Rate 67 79 Respiratory 15 16 Rate Blood Pressure 133/56 129/50 (mmHg) O2 Sat by Pulse 99 99 97 Oximetry 02/16/17 02/16/17 02/17/17 19:20 23:52 01:55 Temperature 98.5 F Pulse Rate 85 Respiratory 16 18 Rate Blood Pressure 128/52 (mmHg) O2 Sat by Pulse 95 97 Oximetry 02/17/17 02/17/17 02/17/17 04:08 07:21 07:59 Temperature 98.0 F 98.3 F Pulse Rate 83 79 Respiratory 18 18 18 Rate Blood Pressure 115/52 142/60 (mmHg) O2 Sat by Pulse 93 93 Oximetry Oxygen Devices in Use Now: None Appearance: NAD, sitting up in bed Eyes: No Scleral Icterus, PERRLA Ears/Nose/Mouth/Throat: Mucous Membranes Moist Respiratory: Symmetrical Chest Expansion and Respiratory Effort, Clear to Auscultation Cardiovascular: NL Sounds; No Murmurs; No JVD, RRR Abdominal: NL Sounds; No Tenderness; No Distention Extremities: No Edema Skin: No Rash or Ulcers Neurological: Alert and Oriented x 3, NL Muscle Strength and Tone Lines/Tubes/Other Access: Clean, Dry and Intact Peripheral IV - site benign Nutrition: Taking PO's Result Diagrams: 02/17/17 05:08 02/16/17 05:25 Assess/Plan/Problems-Billing Assessment: Ms. Tavares is an 89 yo female with PMH significant for HTN, HLD, and osteoarthritis who presented to the hospital for an elective right total hip replacement with Dr. Jarrell on 02/15/17. - Patient Problems (1) Status post total hip replacement, right Code(s): Z96.641 - PRESENCE OF RIGHT ARTIFICIAL HIP JOINT SNOMED Code(s): 043417119960 Comment: - POD #2, management per Ortho - HH stable - Continue pain management, bowel regime and OT/PT (2) HTN (hypertension) Code(s): I10 - ESSENTIAL (PRIMARY) HYPERTENSION SNOMED Code(s): 40827115 Comment: - Mostly Normotensive, but SBP 140's this morning - Continue to hold Amlodipine and Hyzarr. - Resuming Amlodipine this AM (3) HLD (hyperlipidemia) Code(s): E78.5 - HYPERLIPIDEMIA, UNSPECIFIED SNOMED Code(s): 23385375 Comment: - Not currently on medication (4) DVT prophylaxis Code(s): XFX1585 - SNOMED Code(s): 076190795 Comment: - Lovenox bridge to Warfarin per Ortho (5) Full code status Code(s): Z78.9 - OTHER SPECIFIED HEALTH STATUS SNOMED Code(s): 279706568 Status and Disposition: Inpatient. Disposition per Orthopedics. Possible discharge to [facility] today.
[2017-02-17] MEDS ORDERED: amLODIPine TAB* 5 MG PO SCH (09:00)
--- NOTE | 2017-02-17 23:32 | DS ---
DISCHARGE SUMMARY: DATE OF ADMISSION: 02/15/17 DATE OF DISCHARGE: 02/17/17 ATTENDING PROVIDER: Dr. Savanah Jarrell. (DICTATED BY TARIQ MORRIS) CHIEF COMPLAINT: 1. Right hip pain. 2. Hypertension. 3. Elevated cholesterol. 4. Generalized osteoarthritis. 5. History of melanoma. DISCHARGE DIAGNOSES: 1. Status post right total hip arthroplasty. 2. Hypertension. 3. Elevated cholesterol. 4. Osteoarthritis, generalized. 5. History of melanoma. PROCEDURE: Right total hip arthroplasty. CONSULTATIONS: 1. Physical Therapy. 2. Occupational Therapy. 3. Medicine. BRIEF HISTORY: Ms. Tavares is a very pleasant 89-year-old female with severe end-stage degenerative osteoarthritis of the right hip, who failed conservative treatment and elected to undergo a right total hip arthroplasty by on 02/15/[address] Savanah Jarrell. HOSPITAL COURSE: The patient was admitted to [facility] on 02/15/17 , where she underwent a right total hip arthroplasty, which was uncomplicated. Postoperatively, she recovered on the surgical short stay unit. On postoperative day 2, her Thomas was removed and she was voiding on her own without difficulty. She was advanced to a regular diet and was controlling her pain with p.o. Percocet. She was restarted on her home medications. Her labs and vital signs remained stable. She was able to weight bear as tolerated on the right lower extremity. She advanced appropriately with physical therapy and occupational therapy. Her DVT prophylaxis was managed with Lovenox and Coumadin until she reached the therapeutic INR. By postoperative day 2, she was orthopedically and medically stable for discharge to [facility] [place]. PHYSICAL EXAMINATION: General: Well-appearing, in no acute distress. Alert and oriented x3. Resting comfortably in bed. Vital signs on date of discharge : Temperature 98.3, pulse 79, respirations 18, blood pressure 142/60, pulse oxygenation 93% on room air. Incision on right hip was clean, dry, and intact with no erythema noted. There was no drainage. Dressing was replaced. Posterior tibial pulses are 2+ bilaterally. Minimal lower extremity edema. Sensation to light touch intact. LABORATORY DATA: On the date of discharge, H and H of 9.9 and 30 with an INR of 2.02. Radiographs: Postoperative radiograph of the right hip demonstrated right total hip arthroplasty with satisfactory placement. DISCHARGE MEDICATIONS: 1. Amlodipine 5 mg p.o. b.i.d. 2. Aspirin 81 mg p.o. q.a.m. 3. Zyrtec 10 mg p.o. p.r.n. 4. Colace 100 mg p.o. b.i.d. 5. Fentanyl patch 37.5 mcg transdermally every 72 hours. 6. Hyzaar 25 one tablet p.o. q.a.m. 7. Meclizine one-half tab to 1 tab p.o. t.i.d. p.r.n. for vertigo. 8. Coumadin 2 mg tablets 1 to 3 tablets p.o. daily at 5 p.m. per physician's instructions. 9. Percocet 5/325 one to two tablets every 4 hours p.o. p.r.n. pain. CONDITION ON DISCHARGE: Stable. DISCHARGE INSTRUCTIONS: Ms. Tavares is a very pleasant 89-year-old female, status post right total hip arthroplasty, which was uncomplicated. She is orthopedically and medically stable for discharge to [facility] [place]. Her labs and vital signs are stable. She restarted her home medications. She will hold her Coumadin dose tonight and will take 2 mg on February 18, 4 mg on February 19, 2 mg on February 20, and will have an INR check on February 21. She will remain weightbearing as tolerated on the right lower extremity. She will have physical therapy at [facility] [place]. She will take Percocet as needed for pain control and Colace up to 3 times a day for constipation. She will follow up with Dr. Jarrell in approximately 10 to 14 days for incision check and suture removal. She was instructed to go immediately to the ER should she develop chest pain or shortness of breath and to call the office immediately with fever, increasing pain or redness around the incision site. TARIQ MORRIS [id number]/[facility] #: [id number] MTDD
== END 2017-02-17 09:30 | DRG 470 ==
LOC: AA 10:28 → SSU 16:18 → UNDODISIN 02-17 09:30
PROVIDERS: ADMIT Orthopaedic Surgery Adult Reconstructive Orthopaedic Surgery; ATTEND Orthopaedic Surgery Adult Reconstructive Orthopaedic Surgery
PROC: 0QB40ZZ Excision of Right Acetabulum, Open Approach (ICD-10-PCS; 2017-02-15)
PROC: 0QU407Z Supplement Right Acetabulum with Autologous Tissue Substitute, Open Approach (ICD-10-PCS; 2017-02-15)
PROC: 0SR902A Replacement of Right Hip Joint with Metal on Polyethylene Synthetic Substitute, Uncemented, Open Approach (ICD-10-PCS; principal; 2017-02-15 13:00)
DX: M16.11 Unilateral primary osteoarthritis, right hip (principal); I10 Essential (primary) hypertension; E78.00 Pure hypercholesterolemia, unspecified; G89.29 Other chronic pain; R11.2 Nausea with vomiting, unspecified; E78.5 Hyperlipidemia, unspecified; J30.2 Other seasonal allergic rhinitis; M85.68 Other cyst of bone, other site; M85.88 Other specified disorders of bone density and structure, other site; Z90.710 Acquired absence of both cervix and uterus; Z80.3 Family history of malignant neoplasm of breast; Z80.1 Family history of malignant neoplasm of trachea, bronchus and lung; Z87.891 Personal history of nicotine dependence; Z98.42 Cataract extraction status, left eye; Z98.41 Cataract extraction status, right eye; Z88.6 Allergy status to analgesic agent; Z88.8 Allergy status to other drugs, medicaments and biological substances; Z97.4 Presence of external hearing-aid; Z85.820 Personal history of malignant melanoma of skin; Z88.5 Allergy status to narcotic agent; Z82.49 Family history of ischemic heart disease and other diseases of the circulatory system; Q65.89 Other specified congenital deformities of hip; Z79.82 Long term (current) use of aspirin; Z79.01 Long term (current) use of anticoagulants; Z79.891 Long term (current) use of opiate analgesic
CPT/HCPCS: 36415; 72170; 80048; 85014; 85018; 85610; 88304; 88311; 88313; 88342; 94760; A9270-GY; C1713; C1776; J0690; J1100; J1170; J1650; J2250; J2405; J3010

== ENCOUNTER 2017-02-17 09:02 | Inpatient (IN) | payer MEDICARE, OTHER ==
[2017-02-17] MEDS ORDERED: Bisacodyl SUPP* 10 MG SUPP PR PRN (13:50)
[2017-02-17] MEDS ORDERED: Magnesium Hydroxide LIQ* 30 ML UDC PO PRN (13:50)
[2017-02-17] MEDS ORDERED: Senna TAB PO PRN (13:50)
[2017-02-17] MEDS ORDERED: fentaNYL PATCH 25 MCG/HR TRANSDERM SCH (14:00)
[2017-02-17] MEDS ORDERED: oxyCODONE/Acetamin 5/325 MG* TAB PO PRN (14:01)
[2017-02-17] MEDS: fentaNYL PATCH 12 MCG/HR TRANSDERM SCH (15:38)
[2017-02-17] MEDS: fentaNYL PATCH 25 MCG/HR TRANSDERM SCH (15:40)
--- NOTE | 2017-02-17 16:51 | HP ---
ADMISSION HISTORY AND PHYSICAL: DATE OF ADMISSION: 02/17/17 REASON FOR ADMISSION: Right total hip replacement. HISTORY OF PRESENT ILLNESS: Justo Tavares is an 89-year-old female. She has a medical history significant for hypertension, but very little else in the way of medical history. She had significant pain in her right groin. She had seen Dr. Jarrell. X-rays were taken, which showed end-stage osteoarthritis. Originally, the patient's pain was in her knee and it was felt that she might have had knee pain, but after consulting with Dr. Jarrell it was felt that the hip x-rays were worse and that was what was driving her pain. It was decided that she should have a right total hip replacement. She was admitted to [facility] on February 15, and underwent a total hip replacement that day. Postoperatively, her course was relatively benign. She has been slow to mobilize. She is felt to have PT and OT needs. She is now being admitted for inpatient rehab so that she might return to independent living. PAST MEDICAL HISTORY: Significant for the hypertension. She also has a history of having had a melanoma. She has had a hysterectomy. CURRENT MEDICATIONS: Include a fentanyl patch, which she takes for chronic pain. She also is on Norvasc and Percocet for pain control as well as Tylenol and bowel medications. ALLERGIES: No known drug allergies. SOCIAL HISTORY: She is an 89-year-old female. She lives alone in a [address]. Her daughter is going to stay with her after discharge. She is non- smoker and non-drinker. REVIEW OF SYSTEMS: The patient reports no current shortness of breath or chest pain. PHYSICAL EXAMINATION VITAL SIGNS: The patient's temperature is 98.4, blood pressure is 138/60, pulse is 80, respirations 18. HEENT: Her extraocular movements are intact. Tongue is midline. NECK: Supple. LUNGS: Sounds clear to auscultation bilaterally. HEART: Sounds are regular. S1 and S2 are audible. ABDOMEN: Soft and nontender. BACK: Her back has a scar from a lumbar laminectomy she had done in 2016. Peripheral pulses are intact. EXTREMITIES: Her right hip has a wound which is clean and dry. NEUROLOGIC: Sensation is intact. She is awake, alert, and oriented. Muscle strength is 5/5 except the right hip, which is 3/5 secondary to pain. FUNCTIONAL EXAM: She transfers with mod-to-max assistance. ASSESSMENT: Status post right total hip replacement. PLAN: Our plan is to integrate her into a comprehensive and therapeutic rehab program. We will have the following goals: 1. Physical Therapy will work with the patient. They are going to work on functional transfer training, ambulation training with a walker. 2. Occupational Therapy, will see the patient and work on her activities of daily living, including toileting, and toilet transfers. 3. Coumadin for DVT prophylaxis. 4. Adequate analgesia. 5. Her bowels will be regulated. 6. behavioral services tech will be closely involved to make sure that any services and equipment that the patient requires are in place prior to discharge. 7. We are going to restart her Hyzaar for hypertension. 8. Family training as appropriate. 9. Advance directives: The patient is a full code. Her daughter is her surrogate decision maker. 10. Home with appropriate services. ESTIMATED LENGTH OF STAY: 12 to 14 days. [id number]/[facility] #: [id number] CLIFF
[2017-02-17] MEDS: Warfarin TAB(*) 2 MG PO SCH (17:02)
[2017-02-17] MEDS: Docusate CAP* 100 MG PO SCH (20:16)
[2017-02-17] MEDS: Acetaminophen TAB* 325 MG PO PRN (21:18)
[2017-02-17] MEDS: fentaNYL Patch Check Q Shift 1 NOTE SCH (23:01)
[2017-02-18 06:33] LABS: Hematocrit 29 % (35-47); Hemoglobin 9.6 g/dl (12.0-16.0); Mean Corpuscular HGB Conc 33 g/dl (31-36); Mean Corpuscular Hemoglobin 30 pg (27-31); Mean Corpuscular Volume 90 fL (80-97); Mean Platelet Volume 9 um3 (7.4-10.4); Red Blood Count 3.22 10^6/ul (4.0-5.4); Red Cell Distribution Width 14 % (10.5-15); White Blood Count 10.1 10^3/ul (3.5-10.8)
[2017-02-18 06:51] LABS: Albumin 2.9 g/dL (3.2-5.2); BUN/Creatinine Ratio 15.6 (8-20); Calcium 8.7 mg/dL (8.6-10.3); EGFR African American 112.4 (>60); EGFR Non-African American 87.4 (>60); Globulin 2.8 g/dL (2-4); Potassium 3.1 mmol/L (3.5-5.0); Total Bilirubin 0.4 mg/dL (0.2-1.0); Total Protein 5.7 g/dL (6.4-8.9)
[2017-02-18] MEDS: fentaNYL Patch Check Q Shift 1 NOTE SCH ×3 (07:03→22:50)
[2017-02-18] MEDS: Losartan TAB* 25 MG PO SCH (08:44)
[2017-02-18] MEDS: Acetaminophen TAB* 325 MG PO PRN (08:44)
[2017-02-18] MEDS: amLODIPine TAB* 5 MG PO SCH (08:45)
[2017-02-18] MEDS: Docusate CAP* 100 MG PO SCH ×2 (08:54→21:15)
[2017-02-18] MEDS ORDERED: Losartan/HCTZ 100/25 (NF) TAB PO SCH (09:00)
[2017-02-18] MEDS: Hydrochlorothiazide TAB* 25 MG PO SCH (10:14)
--- NOTE | 2017-02-18 12:46 | PMRUTEAM ---
PMRU: Goals Current Status: Nursing: Current Status Skin Deviations [Right Hip Incision Incision] Skin Deviation Description [ Not seen. Bandaged by Dr. Jarrell in AM. No drainage Right Hip Incision] noted on bandage. Physical Therapy: Current Status Bed Mobility Assistance Min Assist Transfer Moblility Assistance Contact Guard Transfer/Bed Mobility Rolling Walker Recommended Devices Ambulation Assistance Contact Guard Ambulation Assistive Devices Rolling Walker Stairs Assistance NA Stairs Recommended Devices Two Rails Number of Stairs 3 Occupational Therapy: Current Status Upper Body Dressing Supervision Lower Body Dressing Min Assist Bathing Mod Assist Toileting Mod Assist Toilet Transfer Contact Guard Assist Shower Transfer Contact Guard Assist Eating Independent Rec Therapy: Current Status Summary of Assessment and Pt. presented as tired and acknowledged this but Clinical Impression was willing to answer questions. Pt. was appropriate, pleasant, and cooperative. Pt. stated she enjoyed her life and expressed love for her family. Pt. was open to continued leisure visits. Treatment Goals Pt. will engage in leisure activities she enjoyed doing while at home such as word and jigsaw puzzles. Treatment Plan Provide RT services and encourage regular involvement. Social Work: Current Status Discharge Plan return home with home care svs and family support Potential for Family Training pt's daughter is involved and supportive Anticipated Discharge Home Destination Anticipated Discharge Catie will be staying with Justo at d/c Destination Comment Discharge With Return home with home care and family support Goals: Physical Therapy: Initial Goals Bed Mobility Assistance Independent Transfer Mobility Assistance Independent Transfer/Bed Mobility Rolling Walker Recommended Devices Ambulation Independent Ambulation Recommended Devices Rolling Walker Stairs Assistance Independent Stair Recommended Devices Two Rails Number of Stairs 3 Home Exercise Program Independent Assistance Physical Therapy: Updated Goals Transfer/Bed Mobility Rolling Walker Recommended Devices Occupational Therapy: Initial Goals Goals to be Completed in (Days 5-7 ) Upper Body Bathing Routine Independent Lower Body Bathing Routine Modified Independent with Upper Body Dressing Routine Independent Lower Body Dressing Routine Modified Independent with Toilet Hygeine and Clothing Modified Independent with Management Routine Toilet Transfer Routine Modified Independent with Step-In Shower Transfer Modified Independent with Routine Functional Transfers for ADL Modified Independent with Grooming Routine Independent Feeding Routine Independent Light Housekeeping Tasks Minimal Contact Assist Social Work: Goals Discharge Plan return home with home care svs and family support Potential for Family Training pt's daughter is involved and supportive Anticipated Discharge Home Destination Anticipated Discharge Catie will be staying with Justo at d/c Destination Comment Discharge With Return home with home care and family support Care Plan: Care Plan ADL's - Improve/Maintain Start: 02/17/17 14:18 Freq: DAILY Status: Active Target: Activity Type Activity Date Activity User E-Sign Co-Sign Detail Recorded Client Recorded Date Recorded By Document 02/17/17 14:18 [id number] 02/17/17 14:18 [id number] 02/17/17 14:18 PMRU Outcome: ADL's/ADL Transfers Orders/Interventions Occupational Therapy Evaluation & Treatment Communication Tool in Patient Room Device Yes: FWW, gait belt Address Deficits Secondary To: s/p Right JOBY Patient to receive OT 5x/wk for 60-120 Therex min/day Self Care Management Group Therapy UE/LE ADL's with Assist Yes: Mendez ADL Transfers with Assist Yes: Mendez Toileting: Transfers,Clothing Management Yes: Mendez ,Hygeine w/Assist Light Kitchen/Laundry w/Assist Yes: Boyd Progression Toward Outcome/Goals Progressing Coping/Psych-Improve/Maintain Start: 02/17/17 10:37 Freq: DAILY Status: Active Target: Activity Type Activity Date Activity User E-Sign Co-Sign Detail Recorded Client Recorded Date Recorded By Document 02/18/17 07:00 [id number] 02/18/17 09:09 [id number] 02/18/17 07:00 PMRU Outcome: Coping/Psychosocial Coping Outcome/Goals Verbalization of Acceptance of Rehab Admit Verbalization of Sense of Control Over Health Status Willingness to Participate in Treatment Plan and Basic Needs Utilization of Available Support Systems Psychosocial Outcome/Goals Maintain/ Improve Emotional Health Cooperate/ Participate in Plan Progression Toward Outcome/Goals - Progressing Coping Progression Toward Outcome/Goals - Progressing Psychosocial DVT Prophylaxis- Improve/Maintain Start: 02/17/17 10:37 Freq: DAILY Status: Active Target: Activity Type Activity Date Activity User E-Sign Co-Sign Detail Recorded Client Recorded Date Recorded By Document 02/18/17 07:00 [id number] 02/18/17 09:09 [id number] 02/18/17 07:00 PMRU Outcome: DVT Prophylaxis Outcome/Goals Remains Free of DVT TEDS Stockings on Every AM, Off at HS Progression Toward Outcome/Goals Progressing Discharge Planning - Improve/Maintain Start: 02/17/17 10:37 Freq: DAILY Status: Active Target: Activity Type Activity Date Activity User E-Sign Co-Sign Detail Recorded Client Recorded Date Recorded By Document 02/18/17 00:45 [id number] 02/18/17 00:47 [id number] 02/18/17 00:45 PMRU Outcome: Discharge Planning Update Patient Family No Outcome/Goals Demonstrates Understanding of Discharge Plan Education-Improve/Maintain Start: 02/17/17 10:37 Freq: DAILY Status: Active Target: Activity Type Activity Date Activity User E-Sign Co-Sign Detail Recorded Client Recorded Date Recorded By Document 02/18/17 07:00 [id number] 02/18/17 09:09 [id number] 02/18/17 07:00 PMRU Outcome: Education Outcome/Goals Demonstrate/ Verbalize Understanding of Written Discharge Instructions Demonstrates Skills Encourage Questions Progression Toward Outcome/Goals Progressing /GI-Improve/Maintain Start: 02/17/17 10:37 Freq: DAILY Status: Active Target: Activity Type Activity Date Activity User E-Sign Co-Sign Detail Recorded Client Recorded Date Recorded By Document 02/18/17 07:00 [id number] 02/18/17 09:09 [id number] 02/18/17 07:00 PMRU Outcome: Genitourinary/ Gastrointestinal Genitourinary- Outcome/Goals Maintain/ Achieve Urinary Continence Maintain/ Achieve Adequate Urinary Output Remain Free of Hospital- Acquired UTI Gastrointestinal-Outcome/Goals Maintain/ Achieve Bowel Regularity in Accordance with Pt's Baseline Prevent Constipation Progression Toward Outcome/Goals - Progressing Medication Administration Start: 02/17/17 10:37 Freq: DAILY Status: Active Target: Activity Type Activity Date Activity User E-Sign Co-Sign Detail Recorded Client Recorded Date Recorded By Document 02/18/17 07:00 [id number] 02/18/17 09:09 [id number] 02/18/17 07:00 PMRU Outcome: Medication Administration Assess Patient Knowledge/Teach Med No Education for all Meds Outcome/Goals Patient Independent with Medication Administration at Home Progression Towards Outcome/Goals Progressing Is Patient Going Home on Lovenox? No Mobility- Improve/Maintain Start: 02/17/17 11:55 Freq: DAILY Status: Active Target: Activity Type Activity Date Activity User E-Sign Co-Sign Detail Recorded Client Recorded Date Recorded By Document 02/17/17 11:55 [id number] 02/17/17 11:56 [id number] 02/17/17 11:55 PMRU Outcome: Mobility Physical Therapy Evaluation and Yes Treatment Activity OOB with Assistance Yes WBAT Yes Device Yes Assistance Yes Patient to be seen 5x/wk for 60-120 min/ Therex day for: Mobility Training Gait Training Balance Other Therapy Comment Hip precautions Outcome/Goals Maintain/ Achieve Baseline Mobility Status Improve Mobility Status Demonstrates Proper Use of Assistive Devices Free from Complications of Immobility Bed Mobility Yes: Independent Transfers Yes: Modified Independent with RW Gait x ft Yes: Modified independent 150 ' with RW Up/Down Stairs Yes: Independent 2 railings 3 steps With HEP Yes: Independent Goal Comment Recall 3/3 hip precautions independently Pain/Comfort- Improve/Maintain Start: 02/17/17 10:37 Freq: DAILY Status: Active Target: Activity Type Activity Date Activity User E-Sign Co-Sign Detail Recorded Client Recorded Date Recorded By Document 02/18/17 07:00 [id number] 02/18/17 09:11 [id number] 02/18/17 07:00 PMRU Outcome: Pain/Comfort Outcome/Goals Demonstrates Knowledge and Use of Available Comfort Measures Achieves Acceptable Comfort/Pain Level as Determined by Patient/Condit Maintain Comfort Level Allowing Patient to Fully Participate in Rehab Progression Toward Outcome/Goals Progressing Respiratory - Improve/Maintain Start: 02/17/17 10:37 Freq: DAILY Status: Active Target: Activity Type Activity Date Activity User E-Sign Co-Sign Detail Recorded Client Recorded Date Recorded By Document 02/18/17 07:00 [id number] 02/18/17 09:13 [id number] 02/18/17 07:00 PMRU Outcome: Respiratory Does Patient Have a Trach No Outcome/Goals Maintain/ Improve O2 Sat per MD Order Maintain/ Improve Activity Tolerance Prevent Pneumonia/ Atelectasis Progression Toward Outcome/Goals Progressing Safety- Improve/Maintain Start: 02/17/17 10:37 Freq: DAILY Status: Active Target: Activity Type Activity Date Activity User E-Sign Co-Sign Detail Recorded Client Recorded Date Recorded By Document 02/18/17 07:00 [id number] [id number] 02/18/17 09:13 [id number] 02/18/17 07:00 PMRU Outcome: Safety Outcome/Goals Remain Free of Injury or Harm Cooperates with Safety Measures for Least Restrictive Environment Prevent Falls/ Injury Progression Toward Outcome/Goals Progressing Skin- Improve/Maintain Start: 02/17/17 10:37 Freq: DAILY Status: Active Target: Activity Type Activity Date Activity User E-Sign Co-Sign Detail Recorded Client Recorded Date Recorded By Document 02/18/17 07:00 [id number] [id number] 02/18/17 09:13 [id number] 02/18/17 07:00 PMRU Outcome: Skin Skin Risk Level Medium Skin Orders Dressing Change Air Mattress Turn/Position q2hr While in Bed Outcome/Goals Maintain/ Improve Skin Intergrity Surgical Incisions Healing Progression Toward Outcome/Goals Progressing Medicine Note: Length of Stay: 6 days Anticipated Discharge Destination: Home Tentative Discharge Date: 02/24 17 Discharged to: Home
[2017-02-18] MEDS ORDERED: Potassium Chloride LIQUID* 20 MEQ PACKET PO ONE (12:49)
[2017-02-18] MEDS: Warfarin TAB(*) 2 MG PO SCH (16:22)
[2017-02-18] MEDS: Potassium Chloride LIQUID* 20 MEQ PACKET PO SCH (21:15)
[2017-02-19] MEDS: fentaNYL Patch Check Q Shift 1 NOTE SCH (06:56)
[2017-02-19] MEDS: Docusate CAP* 100 MG PO SCH ×2 (08:50→19:38)
[2017-02-19] MEDS: Losartan TAB* 25 MG PO SCH (08:50)
[2017-02-19] MEDS: Hydrochlorothiazide TAB* 25 MG PO SCH (08:50)
[2017-02-19] MEDS: amLODIPine TAB* 5 MG PO SCH (08:50)
[2017-02-19] MEDS: Potassium Chloride LIQUID* 20 MEQ PACKET PO SCH ×2 (11:22→19:39)
[2017-02-19] MEDS: Warfarin TAB(*) 2 MG PO SCH (16:38)
[2017-02-19] MEDS: fentaNYL PATCH 12 MCG/HR TRANSDERM SCH (16:39)
[2017-02-19] MEDS: fentaNYL PATCH 25 MCG/HR TRANSDERM SCH (16:40)
[2017-02-20 07:00] LABS: Calcium 8.5 mg/dL (8.6-10.3); EGFR African American 125.9 (>60); EGFR Non-African American 97.9 (>60); Potassium 3.2 mmol/L (3.5-5.0)
[2017-02-20] MEDS: amLODIPine TAB* 5 MG PO SCH (07:49)
[2017-02-20] MEDS: Hydrochlorothiazide TAB* 25 MG PO SCH (07:49)
[2017-02-20] MEDS: Losartan TAB* 25 MG PO SCH (07:49)
[2017-02-20] MEDS: Docusate CAP* 100 MG PO SCH ×2 (07:50→19:36)
[2017-02-20] MEDS: fentaNYL Patch Check Q Shift 1 NOTE SCH ×3 (08:40→19:32)
[2017-02-20] MEDS: Warfarin TAB(*) 2 MG PO SCH (17:19)
[2017-02-21] MEDS: fentaNYL Patch Check Q Shift 1 NOTE SCH ×2 (07:11→21:02)
[2017-02-21] MEDS: Hydrochlorothiazide TAB* 25 MG PO SCH (08:28)
[2017-02-21] MEDS: Losartan TAB* 25 MG PO SCH (08:28)
[2017-02-21] MEDS: Docusate CAP* 100 MG PO SCH ×2 (08:28→21:30)
[2017-02-21] MEDS: amLODIPine TAB* 5 MG PO SCH (08:28)
[2017-02-21] MEDS: Warfarin TAB(*) 2 MG PO SCH (17:01)
[2017-02-22] MEDS: fentaNYL Patch Check Q Shift 1 NOTE SCH ×2 (07:22→20:45)
[2017-02-22] MEDS: amLODIPine TAB* 5 MG PO SCH (10:02)
[2017-02-22] MEDS: Losartan TAB* 25 MG PO SCH (10:02)
[2017-02-22] MEDS: Hydrochlorothiazide TAB* 25 MG PO SCH (10:02)
[2017-02-22] MEDS: Docusate CAP* 100 MG PO SCH ×2 (10:06→21:02)
--- NOTE | 2017-02-22 12:49 | PMRUTEAM ---
PMRU: Goals Current Status: Nursing: Current Status Skin Deviations [Midline Other Buttocks] Skin Deviations [Right Hip Incision Incision] Skin Deviation Description [ redness noted, cream applied Midline Buttocks] Skin Deviation Description [ effie intact and open to air Right Hip Incision] Physical Therapy: Current Status Bed Mobility Assistance Contact Guard Assist,Min Assist Transfer Moblility Assistance Supervision,Contact Guard Assist Transfer/Bed Mobility Rolling Walker Recommended Devices Ambulation Assistance Supervision Ambulation Assistive Devices Rolling Walker Number of Feet Patient 150' Ambulated Stairs Assistance Supervision Stairs Recommended Devices Two Rails Number of Stairs 5 Occupational Therapy: Current Status Upper Body Dressing Min Assist Upper Body Dressing Progress to fasten bra Lower Body Dressing Min Assist Lower Body Dressing Progress with AE Bathing Supervision Bathing Progress long handled sponge Toileting Ind with Adaptive Equip Toilet Transfer Ind with Adaptive Equip Shower Transfer Supervision Eating Independent Instrumental ADL supervision for meal prep task with cues for walker placement 02/21/17 Rec Therapy: Current Status Summary of Assessment and RT assessment complete, pt. is aware of services Clinical Impression and open to continued leisure visits. Treatment Goals Pt. will engage in leisure activities such as word and jigsaw puzzles. Treatment Plan Provide RT services and encourage regular involvement. Social Work: Current Status Discharge Plan return home with home care svs and family support Potential for Family Training pt's daughter is involved and supportive Anticipated Discharge Home Destination Anticipated Discharge Catie will be staying with Justo at d/c Destination Comment Discharge With VNS and familys support Nutrition: Current Status Monitoring PO ranging 40-70% (though only 5% of L yesterday) . Regular BMs noted. Skin remains intact. K+ 3.2 as of 02/20; recommend repletion. Goals: Physical Therapy: Initial Goals Bed Mobility Assistance Independent Transfer Mobility Assistance Independent Transfer/Bed Mobility Rolling Walker Recommended Devices Ambulation Independent Ambulation Recommended Devices Rolling Walker Stairs Assistance Independent Stair Recommended Devices Two Rails Number of Stairs 3 Home Exercise Program Independent Assistance Physical Therapy: Updated Goals Transfer/Bed Mobility Rolling Walker Recommended Devices Occupational Therapy: Initial Goals Goals to be Completed in (Days 5-7 ) Upper Body Bathing Routine Independent Lower Body Bathing Routine Modified Independent with Upper Body Dressing Routine Independent Lower Body Dressing Routine Modified Independent with Toilet Hygeine and Clothing Modified Independent with Management Routine Toilet Transfer Routine Modified Independent with Step-In Shower Transfer Modified Independent with Routine Functional Transfers for ADL Modified Independent with Grooming Routine Independent Feeding Routine Independent Light Housekeeping Tasks Minimal Contact Assist Nutrition: Goals Intervention Goals 1. pt will tolerate po intake without further nausea 2. improved and adequate po intake to maintain stable wt and lean body mass 3. achieve and maintain electrolyte balance; K will remain >3.5 4. maintain regulated bowel pattern without c/o constipation (or diarrhea) Social Work: Goals Discharge Plan return home with home care svs and family support Potential for Family Training pt's daughter is involved and supportive Anticipated Discharge Home Destination Anticipated Discharge Catie will be staying with Justo at d/c Destination Comment Discharge With VNS and familys support Care Plan: Care Plan ADL's - Improve/Maintain Start: 02/17/17 14:18 Freq: DAILY Status: Active Target: Activity Type Activity Date Activity User E-Sign Co-Sign Detail Recorded Client Recorded Date Recorded By Document 02/22/17 10:19 [id number] 02/22/17 10:20 [id number] 02/22/17 10:19 PMRU Outcome: ADL's/ADL Transfers Orders/Interventions Occupational Therapy Evaluation & Treatment Communication Tool in Patient Room Device Yes: FWW, gait belt Address Deficits Secondary To: s/p Right JOBY Patient to receive OT 5x/wk for 60-120 Therex min/day Self Care Management Group Therapy UE/LE ADL's with Assist Yes: Mendez ADL Transfers with Assist Yes: Mendez Toileting: Transfers,Clothing Management Yes: Mendez ,Hygeine w/Assist Light Kitchen/Laundry w/Assist Yes: Boyd Progression Toward Outcome/Goals Progressing Outcome/Goals Met Pt progressing well, increased independence with LE dressing with threading pants , assist only to don shoes using shoehorn. Pt's daughter present and participated in family training session this date. Coping/Psych-Improve/Maintain Start: 02/17/17 10:37 Freq: DAILY Status: Active Target: Activity Type Activity Date Activity User E-Sign Co-Sign Detail Recorded Client Recorded Date Recorded By Document 02/22/17 12:32 [id number] 02/22/17 12:34 [id number] 02/22/17 12:32 PMRU Outcome: Coping/Psychosocial Coping Outcome/Goals Verbalization of Acceptance of Rehab Admit Verbalization of Sense of Control Over Health Status Willingness to Participate in Treatment Plan and Basic Needs Utilization of Available Support Systems Psychosocial Outcome/Goals Maintain/ Improve Emotional Health Cooperate/ Participate in Plan Progression Toward Outcome/Goals - Progressing Coping Progression Toward Outcome/Goals - Progressing Psychosocial DVT Prophylaxis- Improve/Maintain Start: 02/17/17 10:37 Freq: DAILY Status: Active Target: Activity Type Activity Date Activity User E-Sign Co-Sign Detail Recorded Client Recorded Date Recorded By Document 02/22/17 12:[id number] [facility] [place] 02/22/17 12:34 [id number] 02/22/17 12:32 PMRU Outcome: DVT Prophylaxis Outcome/Goals Remains Free of DVT Complies with DVT Prophylaxis /Treatment Demonstrates Knowledge of DVT Prevention/ Treatment TEDS Stockings on Every AM, Off at HS Progression Toward Outcome/Goals Progressing Discharge Planning - Improve/Maintain Start: 02/17/17 10:37 Freq: DAILY Status: Active Target: Activity Type Activity Date Activity User E-Sign Co-Sign Detail Recorded Client Recorded Date Recorded By Document 02/22/17 03:13 [id number] PM-0 02/22/17 03:14 [id number] 02/22/17 03:13 PMRU Outcome: Discharge Planning Update Patient Family No Outcome/Goals Demonstrates Understanding of Discharge Plan Progression Toward Outcome/Goals Progressing Education-Improve/Maintain Start: 02/17/17 10:37 Freq: DAILY Status: Active Target: Activity Type Activity Date Activity User E-Sign Co-Sign Detail Recorded Client Recorded Date Recorded By Document 02/22/17 12:[id number] [facility] 02/22/17 12:34 [id number] 02/22/17 12:32 PMRU Outcome: Education Outcome/Goals Demonstrate/ Verbalize Understanding of Written Discharge Instructions Demonstrates Skills Encourage Questions Progression Toward Outcome/Goals Progressing /GI-Improve/Maintain Start: 02/17/17 10:37 Freq: DAILY Status: Active Target: Activity Type Activity Date Activity User E-Sign Co-Sign Detail Recorded Client Recorded Date Recorded By Document 02/22/17 03:13 [id number] [id number] 02/22/17 03:14 [id number] 02/22/17 03:13 PMRU Outcome: Genitourinary/ Gastrointestinal Genitourinary- Outcome/Goals Maintain/ Achieve Urinary Continence Maintain/ Achieve Adequate Urinary Output Remain Free of Hospital- Acquired UTI Gastrointestinal-Outcome/Goals Maintain/ Achieve Bowel Regularity in Accordance with Pt's Baseline Prevent Constipation Progression Toward Outcome/Goals - Progressing Progression Toward Outcome/Goals - GI Progressing Medication Administration Start: 02/17/17 10:37 Freq: DAILY Status: Active Target: Activity Type Activity Date Activity User E-Sign Co-Sign Detail Recorded Client Recorded Date Recorded By Document 02/22/17 12:32 [id number] [id number] 02/22/17 12:34 [id number] 02/22/17 12:32 PMRU Outcome: Medication Administration Assess Patient Knowledge/Teach Med No Education for all Meds Outcome/Goals Patient Independent with Medication Administration at Home Demonstrates Understanding Progression Towards Outcome/Goals Progressing Is Patient Going Home on Lovenox? No Mobility- Improve/Maintain Start: 02/17/17 11:55 Freq: DAILY Status: Active Target: Activity Type Activity Date Activity User E-Sign Co-Sign Detail Recorded Client Recorded Date Recorded By Document 02/21/17 12:17 [id number] 02/21/17 12:17 [id number] 02/21/17 12:17 PMRU Outcome: Mobility Physical Therapy Evaluation and Yes Treatment Activity OOB with Assistance Yes WBAT Yes Device Yes Assistance Yes Patient to be seen 5x/wk for 60-120 min/ Therex day for: Mobility Training Gait Training Balance Other Therapy Comment Hip precautions Outcome/Goals Maintain/ Achieve Baseline Mobility Status Improve Mobility Status Demonstrates Proper Use of Assistive Devices Free from Complications of Immobility Progression Toward Outcome/Goals Progressing Bed Mobility Yes: Independent Transfers Yes: Modified Independent with RW Gait x ft Yes: Modified independent 150 ' with RW Up/Down Stairs Yes: Independent 2 railings 3 steps With HEP Yes: Independent Goal Comment Recall 3/3 hip precautions independently Pain/Comfort- Improve/Maintain Start: 02/17/17 10:37 Freq: DAILY Status: Active Target: Activity Type Activity Date Activity User E-Sign Co-Sign Detail Recorded Client Recorded Date Recorded By Document 02/22/17 12:32 [id number] 02/22/17 12:34 [id number] 02/22/17 12:32 PMRU Outcome: Pain/Comfort Outcome/Goals Demonstrates Knowledge and Use of Available Comfort Measures Achieves Acceptable Comfort/Pain Level as Determined by Patient/Condit Maintain Comfort Level Allowing Patient to Fully Participate in Rehab Progression Toward Outcome/Goals Progressing Respiratory - Improve/Maintain Start: 02/17/17 10:37 Freq: DAILY Status: Active Target: Activity Type Activity Date Activity User E-Sign Co-Sign Detail Recorded Client Recorded Date Recorded By Document 02/22/17 12:32 [id number] [id number] 02/22/17 12:34 [id number] 02/22/17 12:32 PMRU Outcome: Respiratory Does Patient Have a Trach No Outcome/Goals Maintain/ Improve O2 Sat per MD Order Maintain/ Improve Activity Tolerance Prevent Pneumonia/ Atelectasis Progression Toward Outcome/Goals Progressing Safety- Improve/Maintain Start: 02/17/17 10:37 Freq: DAILY Status: Active Target: Activity Type Activity Date Activity User E-Sign Co-Sign Detail Recorded Client Recorded Date Recorded By Document 02/22/17 12:32 [id number] [id number] 02/22/17 12:34 [id number] 02/22/17 12:32 PMRU Outcome: Safety Outcome/Goals Remain Free of Injury or Harm Cooperates with Safety Measures for Least Restrictive Environment Prevent Falls/ Injury Progression Toward Outcome/Goals Progressing Skin- Improve/Maintain Start: 02/17/17 10:37 Freq: DAILY Status: Active Target: Activity Type Activity Date Activity User E-Sign Co-Sign Detail Recorded Client Recorded Date Recorded By Document 02/22/17 12:32 [id number] [email or web address] 02/22/17 12:34 [id number] 02/22/17 12:32 PMRU Outcome: Skin Skin Risk Level Medium Skin Orders Air Mattress Turn/Position q2hr While in Bed Outcome/Goals Maintain/ Improve Skin Intergrity Surgical Incisions Healing Progression Toward Outcome/Goals Progressing Medicine Note: Length of Stay: 1 day Anticipated Discharge Destination: Home Tentative Discharge Date: 02/23/17 Discharged to: Home
[2017-02-22] MEDS ORDERED: fentaNYL PATCH 12 MCG/HR TRANSDERM SCH (15:00)
[2017-02-22] MEDS ORDERED: fentaNYL PATCH 25 MCG/HR TRANSDERM SCH (15:00)
[2017-02-22] MEDS: Warfarin TAB(*) 2 MG PO SCH (16:13)
[2017-02-23 06:44] VITALS: BP 133/49
[2017-02-23] MEDS: fentaNYL Patch Check Q Shift 1 NOTE SCH (07:01)
[2017-02-23] MEDS: Losartan TAB* 25 MG PO SCH (09:07)
[2017-02-23] MEDS: Hydrochlorothiazide TAB* 25 MG PO SCH (09:07)
[2017-02-23] MEDS: Docusate CAP* 100 MG PO SCH (09:07)
[2017-02-23] MEDS: amLODIPine TAB* 5 MG PO SCH (09:07)
[2017-02-23 09:41] LABS: BUN/Creatinine Ratio 19.7 (8-20); Calcium 9.4 mg/dL (8.6-10.3); EGFR African American 108.4 (>60); EGFR Non-African American 84.3 (>60); Potassium 3.3 mmol/L (3.5-5.0)
--- NOTE | 2017-02-23 22:17 | DS ---
DISCHARGE SUMMARY: DATE OF ADMISSION: 02/17/17 DATE OF DISCHARGE: 02/23/17 DISCHARGE DIAGNOSES: 1. Right total hip replacement. 2. Hypertension. 3. History of melanoma. HISTORY OF PRESENT ILLNESS AND HOSPITAL COURSE: For complete history of the events leading up to her rehab stay, please see the history and physical dictated by me on 02/17/17. While on the rehab unit, the patient remained stable from medical point of view. She was maintained on Coumadin for DVT prophylaxis. She was noted to be hypokalemic on routine blood work. She was given oral supplementation. The patient unfortunately developed nausea as a result of her oral potassium supplements and agreed to work on eating foods that were high in potassium. The patient's potassium was rising at the time of discharge. Otherwise, the patient was medically stable. She was seen by both Physical and Occupational Therapy and made good gains with both disciplines. With physical therapy at the time of admission, the patient required contact guard to do a transfer. She was able to ambulate with contact guard. With occupational therapy, she was min assist for toilet transfers and lower body dressing. By the time of discharge, the patient was independent in all activities. She was able to ambulate 150 feet using a rolling walker. She was able to go up and down 5 steps. She did require min assist for lower body dressing, i.e., shoes and socks. The patient was discharged home with her daughter on 02/23/17. DISCHARGE DIET: Regular. DISCHARGE MEDICATIONS: 1. Coumadin 2 mg daily or as directed. 2. Fentanyl patch 37.5 mcg apply to chest wall changing every 3 days. 3. Hyzaar 100/25 one tablet every morning. 4. Amlodipine 5 mg daily. SERVICES AFTER DISCHARGE: Through the visiting nurse service. She will have home nursing, home physical therapy, and home health aide. FOLLOWUP: Follow up with Dr. Savanah Jarrell in 3 to 5 days. CC: Dr. Altaf Harris* [id number]/[facility] #: [id number] [email or web address]
== END 2017-02-23 11:15 | disposition home or self-care (01) | DRG 561 ==
LOC: PMRU 09:50
PROVIDERS: ADMIT Physical Medicine & Rehabilitation; ATTEND Physical Medicine & Rehabilitation
PROC: F07Z5ZZ Bed Mobility Treatment (ICD-10-PCS; principal; 2017-02-17)
PROC: F07Z9ZZ Gait Training/Functional Ambulation Treatment (ICD-10-PCS; 2017-02-17)
PROC: F07Z8ZZ Transfer Training Treatment (ICD-10-PCS; 2017-02-17)
PROC: F08Z0ZZ Bathing/Showering Techniques Treatment (ICD-10-PCS; 2017-02-17)
PROC: F08Z1ZZ Dressing Techniques Treatment (ICD-10-PCS; 2017-02-17)
PROC: F08Z3ZZ Feeding/Eating Treatment (ICD-10-PCS; 2017-02-17)
DX: Z47.1 Aftercare following joint replacement surgery (principal); I10 Essential (primary) hypertension; Z96.641 Presence of right artificial hip joint; Z85.820 Personal history of malignant melanoma of skin; E87.6 Hypokalemia; G89.29 Other chronic pain; Z79.899 Other long term (current) drug therapy
CPT/HCPCS: 36415; 80048; 80053; 85025; 85610; A9270-GY

== ENCOUNTER 2017-08-02 10:25 | Inpatient (IN) | payer MEDICARE, OTHER ==
--- NOTE | 2017-07-22 16:38 | HP ---
HISTORY AND PHYSICAL: DATE OF ADMISSION/SURGERY: 08/03/17 DATE OF OFFICE VISIT: 07/22/17 SURGEON: Savanah Jarrell MD * (DICATED BY TARIQ LIU) PROCEDURE: Left total hip arthroplasty. CHIEF COMPLAINT: Left hip pain. HISTORY OF PRESENT ILLNESS: Ms. Tavares is an 89-year-old female with continued complaints of left hip pain secondary to advanced osteoarthritis. She has failed conservative management and has elected to proceed with a left total hip arthroplasty, which is scheduled for 08/03/[address] Jarrell. PAST MEDICAL HISTORY: Hypertension, high cholesterol, history of melanoma removal. PAST SURGICAL HISTORY: Melanoma removal, hysterectomy, tonsillectomy, right carpal tunnel release, left ear surgery, rotator cuff repair on the right shoulder, right total hip arthroplasty. CURRENT MEDICATIONS: 1. Amlodipine. 2. Aspirin. 3. Losartan/hydrochlorothiazide. ALLERGIES: None. FAMILY HISTORY: Breast cancer, lung cancer. SOCIAL HISTORY: She is an 89-year-old female. She lives alone. She does not smoke. She denies use of drugs or alcohol. REVIEW OF SYSTEMS: A complete 14-point review of systems is reviewed with the patient, was all negative or noncontributory. PHYSICAL EXAMINATION GENERAL: Well developed, well nourished, in no acute distress. VITAL SIGNS: She stands 5 feet 2 inches tall, weighs 135 pounds. Her blood pressure is 152/66, her heart rate is 72. HEENT: Normocephalic, atraumatic. NECK: Supple. No palpable lymph nodes. PULMONARY: Lungs are clear to auscultation bilaterally. CARDIO: Regular rate and rhythm. Strong S1, S2. ABDOMEN: Soft, nontender, nondistended. MUSCULOSKELETAL: Left lower extremity, the skin is intact. There are no open wounds or abrasions. She walks with an antalgic-type gait. She has decreased internal and external rotation of the left hip. She is overall neurovascularly intact. NEUROLOGICAL: Alert and oriented x3. Cranial nerves II through XII are intact. ASSESSMENT AND PLAN: Ms. Tavares is an 89-year-old female with complaints of left hip pain secondary to advanced osteoarthritis. She has failed conservative management and has elected to proceed with a left total hip arthroplasty, which is scheduled for 08/03/[address] Jarrell discussed the risks and the benefits of the surgery at today's visit and all of her questions were answered. She will see Dr. Jarrell back in 2 weeks after the surgery. TARIQ LIU [id number]/[facility] #: [id number] [facility] CENTERMatthew
[~2017-08-02 10:25] MED LIST changes: +Buffered Lidocaine 0.9% SYRIN* 5 ML/SYR SYRINGE INTRADERM ONE; -Buffered Lidocaine 1% SYRIN* 3 ML/SYR SYRINGE INTRADERM ONE; -DiMENhydriNATE IV* 50 MG/ML VIAL IV PUSH PRN; -HYDROmorphone* 1 MG/ML 1 ML SYR IV PRN; -HYDROmorphone* 1 MG/ML 1 ML SYR ONE; -Meperidine SYRINGE* 50 MG/ML ONE; -Midazolam* 1 MG/ML 2 ML VIAL (2 MG) ONE; -Morphine PF AMP (0.5MG/ML)* 5 MG/10 ML AMP ONE; -Ondansetron INJ* 2 MG/ML VIAL IV PRN; -PROCHLORPERAZINE INJ 5 MG/ML 2 ML VIAL IV PRN; -fentaNYL* 50 MCG/ML 2 ML VIAL (100 MCG VIAL) IV PRN; -fentaNYL* 50 MCG/ML 2 ML VIAL (100 MCG VIAL) ONE
[2017-08-02] MEDS ORDERED: Propofol* 10 MG/ML 20 ML BTL IV PUSH ONE (10:30)
[2017-08-02] MEDS ORDERED: Midazolam* 1 MG/ML 5 ML VIAL (5 MG) ONE (10:30)
[2017-08-02] MEDS ORDERED: fentaNYL* 50 MCG/ML 2 ML VIAL (100 MCG VIAL) ONE (10:30)
[2017-08-02] MEDS ORDERED: Lidocaine 2% PF * 5 ML VIAL ONE (10:30)
[2017-08-02] MEDS ORDERED: Morphine PF AMP (0.5MG/ML)* 5 MG/10 ML AMP ONE (10:30)
[2017-08-02] MEDS ORDERED: Buffered Lidocaine 0.9% SYRIN* 5 ML/SYR SYRINGE ONE (10:32)
[2017-08-02] MEDS ORDERED: Dexamethasone IV* 4 MG/ML 1 ML (4 MG) ONE (10:32)
[2017-08-02] MEDS ORDERED: Famotidine IV* 10 MG/ML 2 ML (20 mg) ONE (10:32)
[2017-08-02] MEDS ORDERED: ceFAZolin 2 GM PREMIX (*) 2 GM/50 ML BAG IVPB ONE (10:32)
[2017-08-02] MEDS ORDERED: Ketorolac INJ* 30 MG/ML 1 ML VIAL ONE (14:13)
[2017-08-02] MEDS ORDERED: Ondansetron INJ* 2 MG/ML VIAL ONE (14:13)
[2017-08-02] MEDS ORDERED: PROCHLORPERAZINE INJ 5 MG/ML 2 ML VIAL IV PRN (14:48)
[2017-08-02] MEDS ORDERED: Nalbuphine* 20 MG/ML 1 ML VIAL IV PRN ×3 (14:48→14:50)
[2017-08-02] MEDS ORDERED: Phenylephrine INJ* 50 MG in NS 0.9% 250 ML* 245 ML IV PRN (14:48)
[2017-08-02] MEDS ORDERED: DiMENhydriNATE IV* 50 MG/ML VIAL IV PUSH PRN ×2 (14:48→14:50)
[2017-08-02] MEDS ORDERED: HYDROmorphone INJ* 1 MG/ML CARPUJECT SYRINGE IV PRN (14:48)
[2017-08-02] MEDS ORDERED: fentaNYL* 50 MCG/ML 2 ML VIAL (100 MCG VIAL) IV PRN (14:48)
[2017-08-02] MEDS ORDERED: diPHENhydraMINE IV* 50 MG/ML 1 ml VIAL (BENADRYL) IV PRN (14:50)
[2017-08-02] MEDS ORDERED: Naloxone* 0.4 MG/ML 1 ML VIAL IV PRN (14:50)
[2017-08-02] MEDS ORDERED: Acetaminophen TAB* 325 MG PO PRN (14:50)
[2017-08-02] MEDS ORDERED: Ketorolac INJ* 30 MG/ML 1 ML VIAL IV PRN (14:50)
[2017-08-02] MEDS ORDERED: Midazolam* 1 MG/ML 2 ML VIAL (2 MG) ONE (15:06)
[2017-08-02] MEDS ORDERED: Phenylephrine IV* 40 MCG/ML 10 ML SYRINGE ONE (15:13)
[2017-08-02] MEDS ORDERED: Polyethylene Glycol 3350* 17 GM PACKET PO PRN (15:14)
[2017-08-02] MEDS ORDERED: Bisacodyl SUPP* 10 MG SUPP PR PRN (15:14)
[2017-08-02] MEDS ORDERED: Temazepam CAP* 15 MG PO PRN (15:14)
[2017-08-02] MEDS ORDERED: Scopolamine 1.5 mg* PATCH TRANSDERM PRN (15:20)
[2017-08-02] MEDS ORDERED: Meclizine TAB* 12.5 MG PO PRN (15:20)
[2017-08-02] MEDS ORDERED: Cetirizine* 10 MG TAB PO PRN (15:20)
[2017-08-02] MEDS ORDERED: Enoxaparin(*) 30 MG/0.3 ML SYR SUBCUT SCH (16:00)
--- NOTE | 2017-08-02 16:10 | RAD ---
INDICATION: Left hip arthroplasty COMPARISON: None 2016 A intraoperative crosstable lateral portable image of the pelvis is submitted and shows placement initiation of left hip arthroplasty with placement of a standard workup and stem for sizing.
--- NOTE | 2017-08-02 17:36 | RAD ---
Indication: Left hip replacement. Single view of the pelvis demonstrates bilateral hip replacements noted. The more recent left temporal placement is in satisfactory position with a small amount of subcutaneous postoperative air. IMPRESSION: Left hip replacement appears to be in satisfactory position.
--- NOTE | 2017-08-02 18:03 | CONSULT ---
Subjective Date of Service: 08/02/17 Interval History: 89 yo F with hx of HTN, HLD, OA seen in PACU after L JOBY. Patient denies any pain/SOB now, still seems drowsy from anesthesia. Daughter present, states that patient does not tolerate oral narcotics well (N/V) and was previously on Fentanyl patch for the hip pain prior to the previous surgery. Since then has been weaned off and now only takes tylenol. Family History: Findings - F- [place] Social History: Findings - Former smoker, quit 50 years ago. No EtOH use Past Medical History: Findings - HTN, HLD, OA, melanoma Review of Systems - Measurements Intake and Output: Intake and Output Last 24 Hours 07/31/17 08/01/17 08/02/17 08/03/17 06:59 06:59 06:59 06:59 Intake Total 1750 Output Total 425 Balance 1325 Weight 59.602 kg Intake: IV Fluids 1750 LR 1700 NS 50ML, Cefazolin 2G 50 Output: Thomas 225 Estimated Blood Loss 200 - Review of Systems Constitutional Symptoms: Negative: Fever Dermatology: Positive: Normal HEENT: Positive: Normal Thyroid: Positive: Normal Pulmonary: Positive: Normal Cardiology: Positive: Normal Gastroenterology: Positive: Normal Genital - Urinary: Positive: Normal Musculoskeletal: Positive: Joint Pain Neurology: Positive: Normal Psychiatry: Positive: Normal Objective Active Medications: Acetaminophen (Tylenol Tab*) 650 mg PO Q4H PRN Acetaminophen (Tylenol Tab*) 650 mg PO Q4H PRN Bisacodyl (Dulcolax Supp*) 10 mg [place] DAILY PRN Cetirizine HCl (Zyrtec*) 10 mg PO DAILY PRN; Protocol Dexamethasone Sodium Phosphate (Decadron Iv*) 8 mg IV SLOW PU ONCE ONE Dimenhydrinate (Dramamine Iv*) 25 mg IV PUSH ONCE PRN Dimenhydrinate (Dramamine Iv*) 12.5 mg IV PUSH Q6H PRN Diphenhydramine HCl (Benadryl Iv*) 12.5 mg IV Q6H PRN Docusate Sodium (Colace Cap*) 100 mg PO BID EMILY Enoxaparin Sodium (Lovenox(*)) 30 mg SUBCUT Q24H EMILY Famotidine (Pepcid Iv*) 20 mg IV ONCE ONE Fentanyl Citrate (Fentanyl*) 25 mcg IV Q2M PRN Hydromorphone HCl (Dilaudid Inj*) 0.1 mg IV Q10M PRN Hydromorphone HCl (Dilaudid Tab*) 2 mg PO Q4H PRN Lactated Ringer's (Lactated Ringers 1000 Ml Bag*) 1,000 mls @ 125 mls/hr IV PER RATE EMILY Phenylephrine HCl 50 mg/ (Sodium Chloride) 250 mls @ 6 mls/hr IV .(Initial Rate ) PRN; 20 MCG/MIN Cefazolin Sodium 1 gm/ Sodium (Chloride) 50 mls @ 200 mls/hr IVPB Q8H EMILY Lactated Ringer's (Lactated Ringers 1000 Ml Bag*) 1,000 mls @ 100 mls/hr IV PER RATE EMILY Ibuprofen (Motrin Tab*) 400 mg PO Q6H EMILY Ketorolac Tromethamine (Toradol Inj*) 15 mg IV Q6H PRN Lactulose (Lactulose*) 30 ml PO Q6H PRN Lidocaine/Sodium Bicarbonate (Buffered Lidocaine 0.9% Syrin*) 0.2 ml INTRADERM ONCE ONE Magnesium Hydroxide (Milk Of Magnesia Liq*) 30 ml PO BID EMILY Meclizine HCl (Antivert Tab*) 6.25 - 12.5 mg PO TID PRN Nalbuphine HCl (Nubain*) 5 mg IV ONCE PRN Nalbuphine HCl (Nubain*) 2 mg IV Q6H PRN Nalbuphine HCl (Nubain*) 5 mg IV Q6H PRN Naloxone HCl (Narcan*) 0.08 mg IV Q2M PRN Polyethylene Glycol/Electrolytes (Miralax*) 17 gm PO DAILY PRN Prochlorperazine Edisylate (Compazine Inj*) 5 mg IV ONCE PRN Scopolamine (Transderm-Scop 1.5 Mg Patch*) 1 patch TRANSDERM Q72H PRN Temazepam (Restoril Cap*) 15 mg PO BEDTIME PRN Warfarin Sodium (Coumadin Tab(*)) 6 mg PO ONCE@1700 ONE Vital Signs 08/02/17 08/02/17 08/02/17 10:21 15:52 15:55 Temperature 97.7 F 97.2 F Pulse Rate 75 66 63 Respiratory 16 18 18 Rate Blood Pressure 151/65 100/47 100/45 (mmHg) O2 Sat by Pulse 97 99 99 Oximetry 08/02/17 08/02/17 08/02/17 16:45 17:00 17:15 Temperature 96.8 F Pulse Rate 52 50 44 Respiratory 16 12 14 Rate Blood Pressure 119/56 114/40 113/49 (mmHg) O2 Sat by Pulse 100 98 97 Oximetry 08/02/17 17:30 Temperature Pulse Rate 57 Respiratory 14 Rate Blood Pressure 123/46 (mmHg) O2 Sat by Pulse 97 Oximetry Oxygen Devices in Use Now: Nasal Cannula Appearance: Elderly, F, laying in bed in NAD Eyes: No Scleral Icterus Ears/Nose/Mouth/Throat: - - Dry MM Neck: NL Appearance and Movements; NL JVP Respiratory: Symmetrical Chest Expansion and Respiratory Effort, Clear to Auscultation Cardiovascular: NL Sounds; No Murmurs; No JVD, RRR Abdominal: NL Sounds; No Tenderness; No Distention Lymphatic: No Cervical Adenopathy Extremities: No Edema, - - L hip dressing in place, appears c/d/i Neurological: - - Drowsy, oriented Lines/Tubes/Other Access: Clean, Dry and Intact Thomas Assessment/Plan - Billing 89 yo F with hx of HTN, HLD, OA s/p L JOBY by Dr. Jarrell on 08/02/17 1) S/P L JOBY - management as per Ortho - patient currently has Dilaudid IV ordered for pain, if this causes N/V would switch to Fentanyl - Lovenox/Coumadin 2) HTN - hold home Amlodipine and Losartan/HCTZ for now - can re-assess in AM 3) DVT PPx - Lovenox/Coumadin Thank you for this consult, will continue to follow
[2017-08-02] MEDS ORDERED: DiMENhydriNATE IV* 50 MG/ML VIAL ONE (18:13)
[2017-08-02] MEDS: Ibuprofen TAB* 400 MG PO SCH ×2 (18:23→21:53)
[2017-08-02] MEDS ORDERED: Warfarin TAB(*) 6 MG PO ONE (19:00)
[2017-08-02] MEDS: ceFAZolin 1 GM VIAL(*) 1 GM in NS 0.9% 50 ML* 50 ML IVPB SCH (20:05)
[2017-08-02] MEDS: Docusate CAP* 100 MG PO SCH (21:53)
[2017-08-02] MEDS: Magnesium Hydroxide LIQ* 30 ML UDC PO SCH (21:53)
[2017-08-03] MEDS: Ibuprofen TAB* 400 MG PO SCH (02:55)
[2017-08-03] MEDS: ceFAZolin 1 GM VIAL(*) 1 GM in NS 0.9% 50 ML* 50 ML IVPB SCH ×2 (03:55→12:18)
[2017-08-03] MEDS ORDERED: HYDROmorphone TAB* 2 MG PO PRN (05:00)
[2017-08-03] MEDS: Acetaminophen TAB* 325 MG PO PRN ×2 (05:56→21:04)
[2017-08-03 07:36] LABS: Hematocrit 27 % (35-47); Hemoglobin 9.2 g/dl (12.0-16.0)
[2017-08-03 07:53] LABS: BUN/Creatinine Ratio 28.4 (8-20); Calcium 8.5 mg/dL (8.6-10.3); EGFR Non-African American 73.9 (>60); Potassium 3.6 mmol/L (3.5-5.0)
[2017-08-03] MEDS: Magnesium Hydroxide LIQ* 30 ML UDC PO SCH ×2 (09:00→19:44)
[2017-08-03] MEDS: Docusate CAP* 100 MG PO SCH ×2 (09:00→19:43)
[2017-08-03] MEDS ORDERED: Losartan/HCTZ 100/25 (NF) TAB PO SCH (09:00)
[2017-08-03] MEDS ORDERED: amLODIPine TAB* 5 MG PO SCH (09:00)
--- NOTE | 2017-08-03 09:46 | OP ---
DATE OF OPERATION: 08/02/17 - ROOM #350 DATE OF : [birth year] SURGEON: Savanah Jarrell MD. CHEMICAL PROCESS OPERATOR: TARIQ Burgess. Johnson did help throughout the procedure with preparation of the leg, wound retraction, manipulation of the hip, and wound closure. ANESTHESIOLOGIST: Dr. Magalis Walker. ANESTHESIA: Spinal. PRE-OP DIAGNOSIS: Severe end-stage degenerative osteoarthritis of the left hip joint. POST-OP DIAGNOSIS: Severe end-stage degenerative osteoarthritis of the left hip joint. OPERATIVE PROCEDURE: Left total hip arthroplasty with acetabular bone grafting. COMPLICATIONS: None. HARDWARE USED: This is uncemented Beverly total hip hardware. For the cup, a Tritanium hemisphere cluster hole shell 50D, 16 mm and 25 mm cancellous bone screw was used. For the insert, a Trident X3 0-degree polyethylene insert 36D. For the stem, an Accolade TMZF size 2.5 with a 132-degree neck, and for the head of Biolox delta ceramic V40 femoral head 36 +0. ESTIMATED BLOOD LOSS: 200 cc. SPECIMEN: Femoral head and acetabular reaming sent to pathology. BRIEF HISTORY/INDICATIONS: developed acute onset of 6 months with severe left hip pain. Radiographs demonstrated [id number] arthritis. She failed conservative treatment with antiinflammatories, intraarticular injections , pain medications, and physical therapy as well as multiple ambulatory assistive devices. Due to severe pain and decreased quality of life, she elected to undergo left total hip arthroplasty. Informed consent was obtained from the patient. She understood the risk of the procedure included but were not limited to bleeding infection, damage to nearby structures, continued pain, need for further surgery, intraoperative fracture, nerve palsy, dislocation, leg length discrepancy, stroke, heart attack, blood clot, and . She wished to proceed. INTRAOPERATIVE FINDINGS: Intraoperatively, the patient was noted to have severe degeneration of the acetabulum with loss of the superior and posterior wall. Extensive osteophyte formation was noted. General osteopenia was noted. DESCRIPTION OF PROCEDURE: Ms. Tavares was identified in the preanesthesia unit. Her left lower extremity was marked as the correct operative side. Informed consent was signed and placed in the chart. The patient was taken to the operating room and placed under spinal anesthesia. A Thomas catheter was placed. The patient was placed in the right lateral decubitus position on the pegboard and all bony prominences were well padded. Left lower extremity was prepped and draped in the usual sterile fashion. Preop time-out was made to correctly identify the patient's side and site. Appropriate perioperative antibiotics were given within 1 hour of incision. A 12-cm posterior hip incision was made with a 10-blade. This was carried down to the lateral fascial layer. Lateral fascial layer was incised in line with the skin incision. A Charnley retractor was placed. The piriformis and conjoint tendons were elevated off the posterolateral femur using electrocautery. These were tagged with #5 Ethibonds. Electro-cautery was then used to make a standard posterolateral capsular flap, and this was also tagged with 2 #5 Ethibonds. The hip was carefully dislocated. Lesser troch to center of the femoral head measured 52 mm. Oscillating saw was used to make the appropriate femoral neck cut, and the femoral head was placed to the side. The femur was retracted anteriorly. After appropriate placement of retractors, the acetabulum was visualized. A superior acetabulum had extensive bone loss. There was significant osteophyte formation. The acetabulum was sequentially reamed up to a size 49. Bleeding subchondral bone bed was obtained. A 49-mm trial had good fit. Final implant chosen was a Tritanium cluster hole shell 50D. This was impacted into the acetabulum without difficulty. The acetabulum had good stability with appropriate anteversion and abduction angle. A 16 mm and 25 mm screw was placed in the superior posterior quadrant for extra stability. A trident X3 0- degree liner 36D was chosen as the insert. This was impacted into the acetabulum without difficulty. Stability of the liner was checked and rechecked and noted to be stable. Attention was next turned to preparation of the femur. A canal finder was used to enter the proximal femur. The proximal femur was sequentially broached up to a size 2.5. A 2.5 broach had good fit. A 36 -0 femoral head neck trial was chosen. Lesser troch to center of the femoral head measured 52 mm. The hip was reduced and taken through range of motion. The hip was stable in all positions. There was good soft tissue tension and appropriate leg lengths. The hip was carefully dislocated. All trials were carefully removed. For the femoral stem, the final implant chosen was an Accolade TMZF size 2.5 with a 132-degree neck. This was impacted carefully into the femoral canal. A stable fit with appropriate anteversion was obtained. The head chosen was a Biolox delta ceramic V40 femoral head 36 +0. This was impacted onto the femoral neck without difficulty. The hip was reduced and taken through range of motion. The hip was stable in all positions. The hip was copiously irrigated with sterile saline. Previously tagged capsule and tendons were reapproximated to the posterolateral femur through two trochanteric drill holes. The lateral fascial layer was closed using interrupted #1 Vicryls. The rest of the incision was closed in a layered fashion using 0 and 2-0 Vicryls. The skin was closed using running 3-0 Monocryl and Dermabond. Sterile Adaptic, 4x4s, and paper tape were used to cover the incision. The patient's anesthesia was reversed without difficulty. She was taken to the PACU in stable condition. Intended weightbearing will be weightbearing as tolerated. Intended DVT prophylaxis will be Coumadin with a Lovenox bridge. [id number]/[facility] #: [id number] [facility]ENTERMatthew
--- NOTE | 2017-08-03 09:48 | PN ---
Progress Note - Progress Note Date of Service: 08/03/17 SOAP: Subjective: []Patient seen at bedside, feeling well. Denies SOB, CP or dizziness. She states she went to [facility] after her other hip surgery and would like to be considered. Objective: [] Vital Signs Temp 98.0 F 08/03/17 07:44 Pulse 57 08/03/17 07:44 Resp 18 08/03/17 08:00 BP 120/49 08/03/17 07:44 Pulse Ox 100 08/03/17 08:00 Intake & Output 08/02/17 08/03/17 08/03/17 18:59 06:59 18:59 Intake Total 1750 1100 700 Output Total 425 375 Balance 1325 725 700 Weight 131 lb 6.4 oz Intake: IV Fluids 1750 980 LR 1700 980 NS 50ML, Cefazolin 2G 50 Oral 120 700 Output: Urine 250 Thomas 225 125 Estimated Blood Loss 200 Laboratory Results - last 24 hr 08/03/17 08/03/17 08/03/17 06:55 06:55 06:55 Hgb 9.2 L Hct 27 L INR (Anticoag Therapy) 0.98 Sodium 138 Potassium 3.6 Chloride 105 Carbon Dioxide 25 Anion Gap 8 BUN 21 Creatinine 0.74 Est GFR ( Amer) 95.0 Est GFR (Non-Af Amer) 73.9 BUN/Creatinine Ratio 28.4 H Glucose 132 H Calcium 8.5 L Left hip dressing is dry and intact calf NT and soft +DF/PF left ankle neuro intact distally Assessment: []s/p Left total hip arthroplasty POD #1 Plan: []PT/OT WBAT LLE Coumadin with Lovenox bridge- 8mg today ? PMRU, will see how initial therapy session goes
--- NOTE | 2017-08-03 12:11 | PN ---
Subjective Date of Service: 08/03/17 Interval History: Patient seen this afternoon. Reports feeling well. Minimal pain, only used tylenol this morning. UOP was low so trujillo kept in place, nausea this AM but has been drinking more. Family History: Unchanged from Admission Social History: Unchanged from Admission Past Medical History: Unchanged from Admission Objective Active Medications: Acetaminophen (Tylenol Tab*) 650 mg PO Q4H PRN PRN Reason: PAIN OR TEMPERATURE Last Admin: 08/03/17 05:56 Dose: 650 mg Bisacodyl (Dulcolax Supp*) 10 mg [place] DAILY PRN PRN Reason: constipation Cetirizine HCl (Zyrtec*) 10 mg PO DAILY PRN; Protocol PRN Reason: allergies Docusate Sodium (Colace Cap*) 100 mg PO BID [facility] Last Admin: 08/03/17 09:00 Dose: 100 mg Enoxaparin Sodium (Lovenox(*)) 30 mg SUBCUT Q24H EMILY Hydromorphone HCl (Dilaudid Tab*) 2 mg PO Q4H PRN PRN Reason: PAIN Cefazolin Sodium 1 gm/ Sodium (Chloride) 50 mls @ 200 mls/hr IVPB Q8H [facility] Stop: 08/03/17 12:14 Last Admin: 08/03/17 03:55 Dose: 200 mls/hr Lactated Ringer's (Lactated Ringers 1000 Ml Bag*) 1,000 mls @ 100 mls/hr IV PER RATE [facility] Last Admin: 08/03/17 03:56 Dose: 100 mls/hr Ketorolac Tromethamine (Toradol Inj*) 15 mg IV Q6H PRN PRN Reason: PAIN Stop: 08/03/17 14:52 Lactulose (Lactulose*) 30 ml PO Q6H PRN PRN Reason: constipation Magnesium Hydroxide (Milk Of Magnesia Liq*) 30 ml PO BID [facility] Last Admin: 08/03/17 09:00 Dose: 30 ml Meclizine HCl (Antivert Tab*) 6.25 mg PO TID PRN PRN Reason: VERTIGO Polyethylene Glycol/Electrolytes (Miralax*) 17 gm PO DAILY PRN PRN Reason: Constipation Scopolamine (Transderm-Scop 1.5 Mg Patch*) 1 patch TRANSDERM Q72H PRN PRN Reason: NAUSEA Temazepam (Restoril Cap*) 15 mg PO BEDTIME PRN PRN Reason: INSOMNIA Warfarin Sodium (Coumadin Tab(*)) 8 mg PO ONCE@1700 ONE PRN Reason: Protocol Stop: 08/03/17 17:01 Vital Signs 08/02/17 08/02/17 08/02/17 15:52 15:55 16:00 Temperature 97.2 F Pulse Rate 66 63 66 Respiratory 18 18 16 Rate Blood Pressure 100/47 100/45 106/48 (mmHg) O2 Sat by Pulse 99 99 99 Oximetry 08/02/17 08/02/17 08/02/17 17:00 17:15 17:30 Temperature 96.8 F Pulse Rate 50 44 57 Respiratory 12 14 14 Rate Blood Pressure 114/40 113/49 123/46 (mmHg) O2 Sat by Pulse 98 97 97 Oximetry 08/03/17 08/03/17 08/03/17 04:50 05:50 07:44 Temperature 98.0 F Pulse Rate 57 Respiratory 16 17 16 Rate Blood Pressure 120/49 (mmHg) O2 Sat by Pulse 99 Oximetry Oxygen Devices in Use Now: None Appearance: Elderly, F, sitting in chair in NAD Eyes: No Scleral Icterus Ears/Nose/Mouth/Throat: Mucous Membranes Moist Neck: NL Appearance and Movements; NL JVP Respiratory: Symmetrical Chest Expansion and Respiratory Effort, Clear to Auscultation Cardiovascular: NL Sounds; No Murmurs; No JVD, RRR Abdominal: NL Sounds; No Tenderness; No Distention Lymphatic: No Cervical Adenopathy Extremities: No Edema Neurological: Alert and Oriented x 3 Lines/Tubes/Other Access: Clean, Dry and Intact [place] - yellow urine draining Result Diagrams: 08/03/17 06:55 08/03/17 06:55 Assess/Plan/Problems-Billing 89 yo F with hx of HTN, HLD, OA s/p L JOBY by Dr. Jarrell on 08/02/17 1) S/P L JOBY - management as per Ortho - patient currently has Dilaudid ordered for pain, if this causes N/V would consider switch to Fentanyl - Lovenox/Coumadin 2) HTN - BPs normal/stable - continue to hold home Amlodipine and Losartan/HCTZ for now 3) DVT PPx - Lovenox/Coumadin Thank you for this consult, will continue to follow
[2017-08-03] MEDS ORDERED: Enoxaparin(*) 40 MG/0.4 ML SYR SUBCUT SCH (16:00)
[2017-08-03] MEDS ORDERED: Warfarin TAB(*) 4 MG PO ONE (17:00)
[2017-08-03] MEDS: Enoxaparin(*) 30 MG/0.3 ML SYR SUBCUT SCH (17:19)
[2017-08-04] MEDS ORDERED: Ondansetron INJ* 2 MG/ML VIAL IV PRN (01:55)
[2017-08-04] MEDS ORDERED: Ondansetron INJ* 2 MG/ML VIAL ONE (02:00)
[2017-08-04] MEDS: Magnesium Hydroxide LIQ* 30 ML UDC PO SCH ×2 (09:03→21:15)
[2017-08-04] MEDS: Docusate CAP* 100 MG PO SCH ×2 (09:03→20:39)
[2017-08-04 09:17] LABS: Hematocrit 27 % (35-47); Hemoglobin 9.1 g/dl (12.0-16.0)
[2017-08-04] MEDS ORDERED: NS 0.9% 1000 ML* 1,000 ML IV SCH (10:30)
[2017-08-04] MEDS ORDERED: fentaNYL* 50 MCG/ML 2 ML VIAL (100 MCG VIAL) IV SLOW PU PRN (10:30)
--- NOTE | 2017-08-04 10:35 | PN ---
Subjective Date of Service: 08/04/17 Interval History: Pt is nauseated today, left hip post op pain is uncontrolled Family History: Unchanged from Admission Social History: Unchanged from Admission Past Medical History: Unchanged from Admission Objective Active Medications: Acetaminophen (Tylenol Tab*) 650 mg PO Q4H PRN PRN Reason: PAIN OR TEMPERATURE Last Admin: 08/03/17 21:04 Dose: 650 mg Bisacodyl (Dulcolax Supp*) 10 mg [place] DAILY PRN PRN Reason: constipation Cetirizine HCl (Zyrtec*) 10 mg PO DAILY PRN; Protocol PRN Reason: allergies Docusate Sodium (Colace Cap*) 100 mg PO BID [facility] Last Admin: 08/04/17 09:03 Dose: Not Given Enoxaparin Sodium (Lovenox(*)) 30 mg SUBCUT Q24H [facility] Last Admin: 08/03/17 17:19 Dose: Not Given Fentanyl Citrate (Fentanyl*) 25 mcg IV SLOW PU Q2H PRN PRN Reason: PAIN Hydromorphone HCl (Dilaudid Tab*) 2 mg PO Q4H PRN PRN Reason: PAIN Sodium Chloride (Ns 0.9% 1000 Ml*) 1,000 mls @ 50 mls/hr IV .PER RATE [facility] Lactulose (Lactulose*) 30 ml PO Q6H PRN PRN Reason: constipation Magnesium Hydroxide (Milk Of Magnesia Liq*) 30 ml PO BID [facility] Last Admin: 08/04/17 09:03 Dose: Not Given Meclizine HCl (Antivert Tab*) 6.25 mg PO TID PRN PRN Reason: VERTIGO Ondansetron HCl (Zofran Inj*) 4 mg IV Q6H PRN PRN Reason: NAUSEA/VOMITING Last Admin: 08/04/17 09:11 Dose: 4 mg Polyethylene Glycol/Electrolytes (Miralax*) 17 gm PO DAILY PRN PRN Reason: Constipation Scopolamine (Transderm-Scop 1.5 Mg Patch*) 1 patch TRANSDERM Q72H PRN PRN Reason: NAUSEA Temazepam (Restoril Cap*) 15 mg PO BEDTIME PRN PRN Reason: INSOMNIA Vital Signs 08/03/17 08/03/17 08/03/17 11:42 15:30 16:00 Temperature 98.1 F 99.2 F Pulse Rate 51 63 Respiratory 16 16 Rate Blood Pressure 116/38 111/39 (mmHg) O2 Sat by Pulse 96 96 96 Oximetry 08/03/17 08/03/17 08/03/17 19:27 19:43 23:21 Temperature 98.4 F 99.3 F Pulse Rate 81 82 Respiratory 16 20 16 Rate Blood Pressure 109/41 114/50 (mmHg) O2 Sat by Pulse 91 96 Oximetry 08/04/17 08/04/17 08/04/17 03:27 05:31 07:31 Temperature 99.0 F 99.2 F Pulse Rate 78 82 Respiratory 16 16 Rate Blood Pressure 108/41 108/48 (mmHg) O2 Sat by Pulse 95 95 94 Oximetry Oxygen Devices in Use Now: None Appearance: 89 yo f in nAD, AAOx3 Eyes: No Scleral Icterus, PERRLA Ears/Nose/Mouth/Throat: NL Teeth, Lips, Gums, Mucous Membranes Moist Neck: NL Appearance and Movements; NL JVP, Trachea Midline Respiratory: Symmetrical Chest Expansion and Respiratory Effort Cardiovascular: NL Sounds; No Murmurs; No JVD, - - irregular (NSR with PAC on EKG) Abdominal: NL Sounds; No Tenderness; No Distention, No Hepatosplenomegaly Lymphatic: No Cervical Adenopathy Extremities: No Edema, No Clubbing, Cyanosis Skin: No Rash or Ulcers, No Nodules or Sclerosis, - - left hip post op dressing not unconvered Neurological: Alert and Oriented x 3, NL Muscle Strength and Tone Result Diagrams: 08/04/17 08:58 08/03/17 06:55 Assess/Plan/Problems-Billing 89 yo F with hx of HTN, HLD, OA s/p L JOBY by Dr. Jarrell on 08/02/17 1) S/P L JOBY - management as per Ortho - patient had been on Fentanyl patch in the past and family agrees to try Fentanyl IV for pain control - Lovenox/Coumadin 2) HTN - BPs normal/stable - continue to hold home Amlodipine and Losartan/HCTZ for now 3) DVT PPx - Lovenox/Coumadin 4) Intractable nausea: -cont Scopolamine patch -cont Zofran -start gentle IVF 5)Irregular HR -denies CP/SOB -EKG shows sinus tacy with PAC's -lytes to be drawn -Troponin ordered Thank you for this consult, will continue to follow
[2017-08-04] MEDS: Acetaminophen TAB* 325 MG PO PRN (10:58)
--- NOTE | 2017-08-04 11:46 | PN ---
Progress Note - Progress Note Date of Service: 08/04/17 SOAP: Subjective: []Patient seen OOB in chair. She is not feeling well, increased pain and increased nausea. She did vomit this morning. Dr. Michele has changed pain medications. Objective: [] Laboratory Results - last 24 hr 08/04/17 08/04/17 08:58 08:58 Hgb 9.1 L Hct 27 L INR (Anticoag Therapy) 1.88 H Vital Signs Temp 98.1 F 08/04/17 11:27 Pulse 92 08/04/17 11:27 Resp 18 08/04/17 11:27 BP 115/44 08/04/17 11:27 Pulse Ox 91 08/04/17 11:27 Intake & Output 08/03/17 08/04/17 08/04/17 18:59 06:59 18:59 Intake Total 2160 875 Output Total 800 Balance 2160 75 Intake: IV Fluids 980 LR 980 Oral 1180 875 Output: Urine 800 Other: Estimated Void Medium # Voids 1 Left hip dressing was changed this am by Dr. Jarrell calf NT and soft sensation intact Assessment: []s/p left total hip arthroplasty POD #2 Plan: []Pain meds changed Scop patch/ zofran Coumadin - 2 mg today Rehab vs home with VNS possibly tomorrow.
[2017-08-04 11:47] LABS: BUN/Creatinine Ratio 23.1 (8-20); Calcium 8.8 mg/dL (8.6-10.3); EGFR African American 110.4 (>60); EGFR Non-African American 85.8 (>60); Magnesium 1.6 mg/dL (1.9-2.7); Potassium 3.3 mmol/L (3.5-5.0)
[2017-08-04] MEDS ORDERED: Magnesium Sulfate 2 GM IV* 2 GM/50 ML BAG IVPB ONE (12:01)
[2017-08-04] MEDS: Aspirin TAB* 325 MG PO SCH (13:01)
[2017-08-04] MEDS ORDERED: NS 0.9% 250 ML* 250 ML IV ONE (14:07)
[2017-08-04 14:37] LABS: Troponin I 0.01 ng/mL (<0.04)
--- NOTE | 2017-08-04 15:11 | RAD ---
Indication: Hypoxemia. Hypertension. Asthma. Comparison: July 25, 2017 Technique: Upright AP 1430 hours Report: Minimal prominence of the interstitial markings with subtle peripheral thickened interlobular septa. Probable small pleural effusions. Negative for pneumothorax. Negative for cardiomegaly. Mild prominence and ill-definition of the central pulmonary vasculature. Mildly tortuous thoracic aorta. Surgical anchors at the RIGHT humerus greater tuberosity. IMPRESSION: The constellation of findings is most consistent with pulmonary vascular congestion and interstitial edema with small associated pleural effusions.
[2017-08-04] MEDS: KCL 10 MEQ/50 ML IVPREMIX* 10 MEQ/50 ML BAG IV SCH ×3 (15:38→23:51)
--- NOTE | 2017-08-04 16:10 | ECHO ---
Patient: [facility] Rec#: [id number] : 1925 Date: 08/04/2017 Age: 89y Height: 157.5 cm / 62.0 in Weight: 59.4 kg / 130.9 lbs Sex: F BSA: 1.6 Room#: 439 Admit Date#: 08/02/2017 Type: Inpatient Referring: Keturah Michele MD Reading: Jahaira Dumas MD Polystyrene Bead Molder: Elizabet Pozo RN RDCS CC: Altaf Harris MD Transthoracic Echocardiogram Indication: Elevated troponin level, abnormal EKG BP: 115/44 HR: 75 Rhythm: NSR with PACs Findings History: HTN, HLD, OA, S/P left total hip arthroplasty 08/02/2017 Technical Comments: The study was technically limited due to the patient's inability to lay in the left lateral decubitus position. The study was performed with the patient in a lounge chair. Completed at 1545. Left Ventricle: The left ventricular chamber size is normal. Mild concentric left ventricular hypertrophy is observed. There is a focal wall motion abnormality present.Mid-basal inferior wall hypokinesis. Left ventricular systolic function is at the lower limits of normal. The estimated ejection fraction is 50-55%. The assessment of diastolic function is non-diagnostic. The patient was unable to perform a Valsalva maneuver. Left Atrium: The left atrial chamber size is normal. Right Ventricle: The right ventricular cavity size is normal. The right ventricular global systolic function is normal. Right Atrium: The right atrial cavity size is normal. Aortic Valve: The aortic valve is trileaflet. The aortic valve leaflets are mildly thickened. Systolic excursion of the aortic valve cusps is reduced. There is aortic annular calcification. There is no evidence of aortic regurgitation. There is mild aortic stenosis. The mean gradient of the aortic valve is 6.4 mmHg. The peak instantaneous gradient of the aortic valve is 10.2 mmHg. The aortic valve area, by peak velocities, is calculated at 1.8 cm2. The aortic valve area, by VTI's, is calculated at 1.7 cm2. Mitral Valve: There is mitral annular calcification. The mitral valve leaflets are mildly thickened. There is moderate mitral regurgitation. There is borderline mitral stenosis. Tricuspid Valve: The tricuspid valve leaflets are normal. There is trace tricuspid regurgitation. Unable to estimate the right ventricular systolic pressure. Pulmonic Valve: The pulmonic valve structure is not well visualized. There is a trace pulmonic regurgitation. There is no pulmonic stenosis. Pericardium: There is no significant pericardial effusion. A pericardial fat pad is visualized. Aorta: There is no dilatation of the ascending aorta. There is no dilatation of the aortic arch. There is no dilation of the aortic root. Pulmonary Artery: The main pulmonary artery is not well visualized. Venous: The inferior vena cava is dilated. There is no change in the dimension of the inferior vena cava with respiration consistent with markedly increased right atrial pressure. Summary: There was not any prior study for comparison. Conclusions The left ventricular chamber size is normal. Mild concentric left ventricular hypertrophy is observed. There is a focal wall motion abnormality present.Mid-basal inferior wall hypokinesis. The estimated ejection fraction is 50-55%. The assessment of diastolic function is non-diagnostic. There is mild borderline aortic stenosis. There is moderate mitral regurgitation. There is borderline mitral stenosis. There is trace tricuspid regurgitation. There is a trace pulmonic regurgitation. Measurements Name Value Normal Range RVIDd (AP) 2D 2.2 cm (0.9 - 2.6) RVDdMajor (2D) 3.4 cm (2.2 - 4.4) RAd ISD 4CH 3.7 cm (3.4 - 4.9) RA (A4C)W 3.8 cm (2.9 - 4.6) IVSd (2D) 1.1 cm (0.6 - 1) LVPWd (2D) 1.1 cm (0.6 - 1) LVIDd (2D) 4 cm (3.6 - 5.4) LVIDs (2D) 3.2 cm - LV FS (2D) 19 % (25 - 45) Aortic Annulus 1.6 cm (1.4 - 2.6) Ao root diameter (2D) 2.7 cm (2.1 - 3.5) Ascending Ao 2.5 cm (2.1 - 3.4) Aortic arch 1.9 cm (1.8 - 3.4) LA dimension (AP) 2D 3.2 cm (2.3 - 3.8) LAd ISD 4CH 4.3 cm (2.9 - 5.3) LA ISD 4CH W 4.4 cm (2.5 - 4.5) Name Value Normal Range LA ESV SP 4CH (A/L) 38 ml - LA ESV SP 2CH (A/L) 45 ml - LA ESV BP (A/L) 44 ml - LA ESV BP (A/L) index 27.3 ml/m2 - LA ESV SP 4CH (MOD) 36 ml - LA ESV SP 2CH (MOD) 43 ml - Name Value Normal Range MV E-wave Vmax 1.2 m/sec - MV deceleration time 154 msec - MV A-wave Vmax 0.94 m/sec - MV E:A ratio 1.2 ratio - LV septal e' Vmax 0.07 m/sec - LV lateral e' Vmax 0.07 m/sec - LV E:e' septal ratio 17.1 ratio - LV E:e' lateral ratio 17.1 ratio - Name Value Normal Range AV Vmax 1.6 m/sec - AV VTI 34.7 cm - AV peak gradient 10.2 mmHg - AV mean gradient 6.4 mmHg - LVOT diameter 2 cm - LVOT Vmax 0.89 m/sec - LVOT VTI 18.5 cm - LVOT peak gradient 3.1 mmHg - LVOT mean gradient 1.9 mmHg - DOI (VTI) 0.53 ratio - DOI (Vmax) 0.55 ratio - SV LVOT 59 ml - CO LVOT 4.4 l/min - Cardiac index 2.8 l/min/m2 - LINDA (continuity Vmax) 1.8 cm2 - LINDA (continuity VTI) 1.7 cm2 - LENA Vmax 0.59 m/sec - Name Value Normal Range MV Vmax 1.4 m/sec - MV VTI 37.4 cm - MV peak gradient 7.4 mmHg - MV mean gradient 2.4 mmHg - MV PHT 75 msec - MR Vmax 4.4 m/sec - MR VTI 143 cm - MVA (PHT) 2.9 cm2 - MVA (continuity VTI) 1.6 cm2 - Name Value Normal Range IVC diameter 2.2 cm - Name Value Normal Range PV Vmax 0.79 m/sec -
--- NOTE | 2017-08-04 16:50 | CONS ---
CC: Hospitalist Service, Dr. Michele; Dr. Dumas; Dr. Jarrell CARDIOLOGY CONSULT: DATE OF CONSULT: 08/04/17 HISTORY OF PRESENT ILLNESS: I was asked by hospitalist service, Dr. Michele, to see this 89-year-old female patient, who was hospitalized for elective total left hip replacement. This was done on 08/02/17. The patient has done well until today, she had some nausea and some tachycardia. She was seen by Dr. Michele. She had an EKG, in sinus rhythm with PACs. Troponin was ordered and it came abnormal at 2.90. She had by the EKG some ST depressions laterally. She ruled in for non-ST elevation myocardial infarction. She never had symptoms of chest pain. Cardiology consult was further requested because of this. It was noticed that she is also anemic, hemoglobin 9.1, hematocrit 27. She gives no history of congestive heart failure, no history of coronary artery disease, no history of myocardial infarction. She gives no orthopnea, no PND, no dizziness , no syncope, no fever, no chills, although her temperature is low grade now at 100 Fahrenheit. She had no vomiting. No hematochezia. No skin rash. No swelling in the lower extremities. She is on telemetry floor now. She has no diabetes mellitus history. She has hypertension; she is on medical treatment. She gives no history of coronary artery disease. Her review of all other systems is essentially is negative. She had a history of melanoma, hypertension , hyperlipidemia. PAST MEDICAL HISTORY: As outlined above. PAST SURGICAL HISTORY: She does have history of surgery right hip replacement in February of this year. MEDICATIONS: As an inpatient include: 1. Tylenol 650 mg p.o. q.4 hours p.r.n. 2. Aspirin 325 mg daily. 3. Zyrtec 10 mg p.r.n. 4. Lovenox injection. 5. Fentanyl p.r.n. 25 mcg IV. 6. Potassium adjusted to her potassium level. 7. Restoril 15 mg p.o. at bedtime p.r.n. ALLERGIES: She is allergic to HYDROCODONE, DEMEROL, OXYCODONE, LISINOPRIL, and TRAMADOL. FAMILY HISTORY: She has no family history of premature coronary artery disease. SOCIAL HISTORY: She used to smoke, she quit 50 years ago. REVIEW OF SYSTEMS: Review of all other systems essentially is negative. PHYSICAL EXAM: She is awake, alert, and oriented. She is not in acute distress. Vitals: Blood pressure 115/44, temperature 100, pulse 92, she is in sinus rhythm. Head and Neck Exam: Normocephalic, atraumatic head. Ears, Nose, and Throat: Essentially benign. Neck: Supple. JVP is not elevated. No carotid bruits. No masses in the neck are appreciated. Chest: Clear to auscultation. No rales, no wheeze, no added sounds appreciated. Heart: Normal , regular, S1 and S2. No added sounds, no gallops, no rubs. Abdomen: Benign, soft. Positive bowel sounds. Extremities: No edema, no cyanosis, no clubbing. Skin Exam: Normal. Psych: Normal affect and mood. ADMINISTRATIVE SUPPORT SPECIALIST: No focal deficits are appreciated. DIAGNOSTIC STUDIES/LAB DATA: Her EKG, sinus rhythm, first-degree AV block, borderline nonspecific abnormality, borderline ST depression in lead V3, V4, V5 , V6. But she is in sinus with some PACs. Hemoglobin 9.1, hematocrit of 27. INR 1.88. Sodium 137, potassium 3.3, chloride 104, BUN 15, creatinine 0.65, magnesium 1.6. Troponin 2.90. IMPRESSION: The patient is an 89-year-old female with: 1. Status post elective total left hip replacement. 2. Ruled in for mild non-ST elevation myocardial infarction after her surgery with mildly elevated troponin and some EKG changes. The patient is chest pain free. Hemodynamically stable. 3. Systemic arterial hypertension by history. 4. Hyperlipidemia by history. 5. Abnormal EKG as described. 6. Significant low magnesium, low potassium. 7. Anemia. PLAN: I have discussed this patient and her daughter as well as with Dr. Michele. She is at 89, I think at the present time is correcting some precipitating factor including her fever, anemia, low potassium and low magnesium as you are already doing. She is chest pain free. She is hemodynamically stable. I agree with obtaining an echo to evaluate her left ventricular systolic function and valvular disease. Follow up serial troponins and EKG as you are already doing. Aspirin, very low-dose beta sam if her hemodynamics allow, and also evaluation for continuing her Lovenox and Coumadin as you are already doing. We will follow her closely. We will make further recommendations accordingly. I answered all their concerns and questions up to their satisfaction. TIME SPENT: More than half of at least 60 plus minutes was in the education and counseling mode, [id number], explaining all of the above and making further recommendations. [id number]/CPS #: [id number] CLIFF
[2017-08-04] MEDS ORDERED: KCL 10 MEQ/50 ML IVPREMIX* 10 MEQ/50 ML BAG ONE ×2 (18:09→23:49)
[2017-08-04] MEDS: Enoxaparin(*) 30 MG/0.3 ML SYR SUBCUT SCH (18:11)
[2017-08-04] MEDS ORDERED: Furosemide TAB* 20 MG PO ONE (20:00)
[2017-08-05] MEDS ORDERED: Furosemide IV* 10 MG/ML 2 ML VIAL (20 MG) IV ONE ×3 (03:04→18:00)
[2017-08-05] MEDS ORDERED: Morphine INJ* 2 MG/ML 1 ML SYRINGE (TWO MG - NEW SYRINGE VERSION) IV ONE (03:05)
--- NOTE | 2017-08-05 03:45 | PN ---
Progress Note - Progress Note Date of Service: 08/05/17 Note: Pt seen after PCXR performed for hypoxia and pink frothy sputum. She appears to be in florid heart failure. Will start BiPAP now and transfer to ICU. Morphine helped with air hunger and coughing fits but her saturations have yet to improve after having the morphine and lasix. The patient has now developed acute hypoxic respiratory failure secondary to acute decompensated diastolic CHF.
[2017-08-05 05:23] LABS: Urine Bacteria Absent (Absent); Urine Bilirubin Negative (Negative); Urine Glucose Negative (Negative); Urine Nitrite Negative (Negative)
[2017-08-05 05:29] LABS: Hematocrit 28 % (35-47); Hemoglobin 9.3 g/dl (12.0-16.0); Mean Corpuscular HGB Conc 34 g/dl (31-36); Mean Corpuscular Hemoglobin 30 pg (27-31); Mean Corpuscular Volume 88 fL (80-97); Mean Platelet Volume 8 um3 (7.4-10.4); Red Blood Count 3.15 10^6/ul (4.0-5.4); Red Cell Distribution Width 15 % (10.5-15); White Blood Count 15.2 10^3/ul (3.5-10.8)
[2017-08-05 05:45] LABS: BUN/Creatinine Ratio 20.3 (8-20); Calcium 8.6 mg/dL (8.6-10.3); EGFR Non-African American 73.9 (>60); HDL Cholesterol 45.6 mg/dL; Magnesium 1.7 mg/dL (1.9-2.7); Potassium 3.2 mmol/L (3.5-5.0)
[2017-08-05 05:54] LABS: Troponin I 3.71 ng/mL (<0.04)
[2017-08-05] MEDS ORDERED: Magnesium Sulfate 2 GM IV* 2 GM/50 ML BAG IVPB ONE (06:42)
--- NOTE | 2017-08-05 07:19 | PN ---
Progress Note - Progress Note Date of Service: 08/05/17 SOAP: Subjective: Pt. in bed with family. She denies chest pain or sob. Objective: LLE - dressing c/d/i/. distally nvi. thigh soft. Vital Signs: Temp Pulse Resp BP Pulse Ox 97.7 F 85 19 123/83 96 08/05/17 04:48 08/05/17 07:00 08/05/17 07:00 08/05/17 06:46 08/05/17 07:00 Laboratory Results - last 24 hr 08/03/17 08/04/17 08/04/17 06:55 08:58 08:58 WBC RBC Hgb 9.1 L Hct 27 L MCV MCH MCHC RDW Plt Count MPV Neut % (Auto) Lymph % (Auto) [place] % (Auto) Eos % (Auto) Baso % (Auto) Absolute Neuts (auto) Absolute Lymphs (auto) Absolute Monos (auto) Absolute Eos (auto) Absolute Basos (auto) Absolute Nucleated RBC Nucleated RBC % INR (Anticoag Therapy) 1.88 H Sodium Potassium Chloride Carbon Dioxide Anion Gap BUN Creatinine Est GFR ( Amer) Est GFR (Non-Af Amer) BUN/Creatinine Ratio Glucose Calcium Magnesium Troponin I 0.01 Triglycerides Cholesterol LDL Cholesterol HDL Cholesterol Urine Color Urine Appearance Urine pH Ur Specific [place] Urine Protein Urine Ketones Urine Blood Urine Nitrate Urine Bilirubin Urine Urobilinogen Ur Leukocyte Esterase Urine WBC (Auto) Urine RBC (Auto) Urine Bacteria Hyaline Casts Urine Glucose 08/04/17 08/04/17 08/04/17 11:07 11:07 17:20 WBC RBC Hgb Hct MCV MCH MCHC RDW Plt Count MPV Neut % (Auto) Lymph % (Auto) [place] % (Auto) Eos % (Auto) Baso % (Auto) Absolute Neuts (auto) Absolute Lymphs (auto) Absolute Monos (auto) Absolute Eos (auto) Absolute Basos (auto) Absolute Nucleated RBC Nucleated RBC % INR (Anticoag Therapy) Sodium 137 Potassium 3.3 L Chloride 104 Carbon Dioxide 27 Anion Gap 6 BUN 15 Creatinine 0.65 Est GFR ( Amer) 110.4 Est GFR (Non-Af Amer) 85.8 BUN/Creatinine Ratio 23.1 H Glucose 120 H Calcium 8.8 Magnesium 1.6 L Troponin I 2.90 H* 4.64 H* Triglycerides Cholesterol LDL Cholesterol HDL Cholesterol Urine Color Urine Appearance Urine pH Ur Specific [place] Urine Protein Urine Ketones Urine Blood Urine Nitrate Urine Bilirubin Urine Urobilinogen Ur Leukocyte Esterase Urine WBC (Auto) Urine RBC (Auto) Urine Bacteria Hyaline Casts Urine Glucose 08/04/17 08/05/17 08/05/17 23:02 05:00 05:15 WBC RBC Hgb Hct MCV MCH MCHC RDW Plt Count MPV Neut % (Auto) Lymph % (Auto) [place] % (Auto) Eos % (Auto) Baso % (Auto) Absolute Neuts (auto) Absolute Lymphs (auto) Absolute Monos (auto) Absolute Eos (auto) Absolute Basos (auto) Absolute Nucleated RBC Nucleated RBC % INR (Anticoag Therapy) 2.15 H Sodium Potassium Chloride Carbon Dioxide Anion Gap BUN Creatinine Est GFR ( Amer) Est GFR (Non-Af Amer) BUN/Creatinine Ratio Glucose Calcium Magnesium Troponin I 4.18 H* Triglycerides Cholesterol LDL Cholesterol HDL Cholesterol Urine Color Straw Urine Appearance Clear Urine pH 5.0 Ur Specific [place] 1.006 L Urine Protein Negative Urine Ketones Negative Urine Blood 2+ H Urine Nitrate Negative Urine Bilirubin Negative Urine Urobilinogen Negative Ur Leukocyte Esterase Negative Urine WBC (Auto) Trace(0-5/hpf) Urine RBC (Auto) 2+(6-10/hpf) H Urine Bacteria Absent Hyaline Casts Present H Urine Glucose Negative 08/05/17 08/05/17 05:15 05:15 WBC 15.2 H RBC 3.15 L Hgb 9.3 L Hct 28 L MCV 88 MCH 30 MCHC 34 RDW 15 Plt Count 245 MPV 8 Neut % (Auto) 89.7 H Lymph % (Auto) 3.9 L [place] % (Auto) 6.1 Eos % (Auto) 0 Baso % (Auto) 0.3 Absolute Neuts (auto) 13.7 H Absolute Lymphs (auto) 0.6 L Absolute Monos (auto) 0.9 H Absolute Eos (auto) 0 Absolute Basos (auto) 0 Absolute Nucleated RBC 0 Nucleated RBC % 0 INR (Anticoag Therapy) Sodium 137 Potassium 3.2 L Chloride 102 Carbon Dioxide 27 Anion Gap 8 BUN 15 Creatinine 0.74 Est GFR ( Amer) 95.0 Est GFR (Non-Af Amer) 73.9 BUN/Creatinine Ratio 20.3 H Glucose 151 H Calcium 8.6 Magnesium 1.7 L Troponin I 3.71 H* Triglycerides 157 Cholesterol 214 LDL Cholesterol 137 HDL Cholesterol 45.6 Urine Color Urine Appearance Urine pH Ur Specific [place] Urine Protein Urine Ketones Urine Blood Urine Nitrate Urine Bilirubin Urine Urobilinogen Ur Leukocyte Esterase Urine WBC (Auto) Urine RBC (Auto) Urine Bacteria Hyaline Casts Urine Glucose Assessment: 89 yo pod 3 s/p LTHA Plan: postop complications of MS/resp failure and CHF. ICU and hospitalist management appreciated. Cardiology consult appreciated. OOBTC when able per hospitalists d/c ayse, therapeutic on coumadin with 4 mg tonight Potassium and magnesium replacement today Resp therapy per hospitalist.
[2017-08-05] MEDS: KCL 20 MEQ/100 ML IVPREMIX* 20 MEQ/100 ML BAG IV SCH ×3 (08:05→17:16)
--- NOTE | 2017-08-05 08:43 | RAD ---
Indication: Shortness of breath after hip replacement. Comparison: August 04, 2017 Technique: Upright AP 0316 hours Report: Perihilar and diffuse alveolar opacities. Obscured and ill-defined central pulmonary vasculature. Thickened peripheral intralobular septa most conspicuous at the RIGHT lung base. Small pleural effusions. Negative for pneumothorax. Negative for cardiomegaly. Surgical anchors at the RIGHT humerus. IMPRESSION: The constellation of findings is most consistent with alveolar and interstitial pulmonary edema with associated small effusions with significant interval worsening compared with the August 04, 2017 exam.
--- NOTE | 2017-08-05 10:41 | PN ---
Subjective Date of Service: 08/05/17 Interval History: Pt is see this am after ICU transfer for BIPAP. Doing well, no CP, tolerating BIPAP Family History: Unchanged from Admission Social History: Unchanged from Admission Past Medical History: Unchanged from Admission Objective Active Medications: Acetaminophen (Tylenol Tab*) 650 mg PO Q4H PRN PRN Reason: PAIN OR TEMPERATURE Last Admin: 08/04/17 10:58 Dose: 650 mg Aspirin (Aspirin Tab*) 325 mg PO DAILY [facility] Last Admin: 08/04/17 13:01 Dose: 325 mg Bisacodyl (Dulcolax Supp*) 10 mg [place] DAILY PRN PRN Reason: constipation Cetirizine HCl (Zyrtec*) 10 mg PO DAILY PRN; Protocol PRN Reason: allergies Docusate Sodium (Colace Cap*) 100 mg PO BID [facility] Last Admin: 08/04/17 20:39 Dose: 100 mg Fentanyl Citrate (Fentanyl*) 25 mcg IV SLOW PU Q2H PRN PRN Reason: PAIN Hydromorphone HCl (Dilaudid Tab*) 2 mg PO Q4H PRN PRN Reason: PAIN Potassium Chloride (Potassium Chloride 20 Meq/100 Ml Ivpremix*) 20 meq in 100 mls @ 50 mls/hr IV Q2H [facility] Stop: 08/05/17 12:59 Last Admin: 08/05/17 08:05 Dose: 50 mls/hr Lactulose (Lactulose*) 30 ml PO Q6H PRN PRN Reason: constipation Magnesium Hydroxide (Milk Of Magnesia Liq*) 30 ml PO BID [facility] Last Admin: 08/04/17 21:15 Dose: Not Given Meclizine HCl (Antivert Tab*) 6.25 mg PO TID PRN PRN Reason: VERTIGO Ondansetron HCl (Zofran Inj*) 4 mg IV Q6H PRN PRN Reason: NAUSEA/VOMITING Last Admin: 08/04/17 09:11 Dose: 4 mg Pharmacy Profile Note (Coumadin Daily Reminder*) 0 note FOLLOW UP 1700 [facility] Polyethylene Glycol/Electrolytes (Miralax*) 17 gm PO DAILY PRN PRN Reason: Constipation Scopolamine (Transderm-Scop 1.5 Mg Patch*) 1 patch TRANSDERM Q72H PRN PRN Reason: NAUSEA Temazepam (Restoril Cap*) 15 mg PO BEDTIME PRN PRN Reason: INSOMNIA Warfarin Sodium (Coumadin Tab(*)) 4 mg PO ONCE@1700 ONE PRN Reason: Protocol Stop: 08/05/17 17:01 Vital Signs 08/04/17 08/04/17 08/04/17 11:27 12:22 12:53 Temperature 98.1 F Pulse Rate 92 Respiratory 18 19 Rate Blood Pressure 115/44 (mmHg) O2 Sat by Pulse 91 97 Oximetry 08/04/17 08/04/17 08/04/17 14:10 15:15 16:00 Temperature 100.0 F 98.4 F Pulse Rate 81 76 Respiratory 20 20 20 Rate Blood Pressure 99/38 106/43 (mmHg) O2 Sat by Pulse 87 97 Oximetry 08/04/17 08/04/17 08/04/17 18:06 19:00 19:53 Temperature 98.6 F Pulse Rate 79 Respiratory 28 20 Rate Blood Pressure 106/50 (mmHg) O2 Sat by Pulse 94 97 Oximetry 08/05/17 08/05/17 08/05/17 00:00 00:05 00:10 Temperature 99.6 F Pulse Rate 88 Respiratory 28 Rate Blood Pressure 120/54 (mmHg) O2 Sat by Pulse 93 89 93 Oximetry 08/05/17 08/05/17 08/05/17 03:18 04:05 04:15 Temperature Pulse Rate 98 97 Respiratory 28 33 31 Rate Blood Pressure 136/68 126/84 (mmHg) O2 Sat by Pulse 92 88 Oximetry 08/05/17 08/05/17 08/05/17 04:18 04:22 04:31 Temperature 97.7 F Pulse Rate 91 Respiratory 26 34 Rate Blood Pressure 127/68 (mmHg) O2 Sat by Pulse 100 Oximetry 08/05/17 08/05/17 08/05/17 04:45 04:48 05:00 Temperature 97.7 F Pulse Rate 92 99 82 Respiratory 18 31 28 Rate Blood Pressure 109/57 136/68 106/52 (mmHg) O2 Sat by Pulse 91 88 93 Oximetry 08/05/17 08/05/17 08/05/17 05:15 05:30 05:45 Temperature Pulse Rate 79 78 76 Respiratory 26 32 13 Rate Blood Pressure 114/59 110/58 107/62 (mmHg) O2 Sat by Pulse 93 92 92 Oximetry 10/20/17 10/20/17 10/20/17 06:00 06:15 06:30 Temperature Pulse Rate 76 85 83 Respiratory 23 19 25 Rate Blood Pressure 117/55 109/76 124/59 (mmHg) O2 Sat by Pulse 93 93 89 Oximetry 08/05/17 08/05/17 08/05/17 06:46 07:00 07:35 Temperature 99.8 F Pulse Rate 88 85 Respiratory 29 19 Rate Blood Pressure 123/83 (mmHg) O2 Sat by Pulse 95 96 Oximetry Oxygen Devices in Use Now: CPAP/BiPAP - on 605 Fi02 Appearance: 89 yo f in NAD, aAOx3 Eyes: No Scleral Icterus, PERRLA Ears/Nose/Mouth/Throat: NL Teeth, Lips, Gums, Mucous Membranes Moist Neck: NL Appearance and Movements; NL JVP, Trachea Midline Respiratory: Symmetrical Chest Expansion and Respiratory Effort, - - crackles at b/l bases Cardiovascular: NL Sounds; No Murmurs; No JVD, RRR Abdominal: NL Sounds; No Tenderness; No Distention Lymphatic: No Cervical Adenopathy Extremities: No Clubbing, Cyanosis Skin: No Nodules or Sclerosis, - - post op left thigh with mild edema , wound not uncovered from surgical dressings Neurological: Alert and Oriented x 3, NL Muscle Strength and Tone Result Diagrams: 08/05/17 05:15 08/05/17 05:15 Assess/Plan/Problems-Billing 89 yo F with hx of HTN, HLD, OA s/p L JOBY by Dr. Jarrell on 08/02/17 1) S/P L JOBY - management as per Ortho - patient had been on Fentanyl patch in the past and family agreed to try Fentanyl IV for pain control - Coumadin 2.) Acute hypoxemic respiratory failure due to post op pulmonary edema-suspect due to a combination of IVF overload and acute systolic CHF (Echo showed EF 55% and inferior wall hypokinesis) Today on BIPAP, will add another dose of IV Lasix and try to liberate off BIPAP 3) Demand ischemia- with troponin peaked at 4.6 on 08/04/17-pt never experienced CP. suspect due to CHF and post op fluid overload Appreciate cardiology consult cont ASA, starting a low dose BB tonight. Pt is on Coumadin, INR therapeutic today 4) dyslipidemia LDL 137- pt is allergic to statins cont cardiac diet 5) HTN - BPs normal/stable - continue to hold home Amlodipine and Losartan/HCTZ for now 6) DVT PPx Coumadin 7) nausea: -cont Scopolamine patch -cont Zofran -resolved today 8)Acute post op anemia -Hb stable, no indications for transfusion Thank you for this consult, will continue to follow
[2017-08-05] MEDS: Magnesium Hydroxide LIQ* 30 ML UDC PO SCH ×2 (12:16→20:47)
[2017-08-05] MEDS: Docusate CAP* 100 MG PO SCH ×2 (12:16→20:46)
[2017-08-05] MEDS: Aspirin TAB* 325 MG PO SCH (12:16)
[2017-08-05] MEDS ORDERED: Warfarin TAB(*) 4 MG PO ONE (17:00)
[2017-08-05] MEDS ORDERED: KCL 20 MEQ/100 ML IVPREMIX* 20 MEQ/100 ML BAG ONE (17:13)
[2017-08-05] MEDS: Metoprolol Tartrate TAB* 25 MG PO SCH (20:47)
[2017-08-06 06:24] LABS: Hematocrit 26 % (35-47); Hemoglobin 8.5 g/dl (12.0-16.0); Mean Corpuscular HGB Conc 33 g/dl (31-36); Mean Corpuscular Hemoglobin 29 pg (27-31); Mean Corpuscular Volume 88 fL (80-97); Mean Platelet Volume 9 um3 (7.4-10.4); Red Blood Count 2.94 10^6/ul (4.0-5.4); Red Cell Distribution Width 15 % (10.5-15); White Blood Count 11.3 10^3/ul (3.5-10.8)
--- NOTE | 2017-08-06 07:59 | PN ---
Subjective Date of Service: 08/06/17 Interval History: Was just increased to 12 L 02 from 10 last night. Otherwise doing well. Discouraged by prolonged hospital stay. Wants to go home Denies CP Family History: Unchanged from Admission Social History: Unchanged from Admission Past Medical History: Unchanged from Admission Objective Active Medications: Acetaminophen (Tylenol Tab*) 650 mg PO Q4H PRN PRN Reason: PAIN OR TEMPERATURE Last Admin: 08/04/17 10:58 Dose: 650 mg Aspirin (Aspirin Tab*) 325 mg PO DAILY [facility] Last Admin: 08/05/17 12:16 Dose: 325 mg Bisacodyl (Dulcolax Supp*) 10 mg [place] DAILY PRN PRN Reason: constipation Cetirizine HCl (Zyrtec*) 10 mg PO DAILY PRN; Protocol PRN Reason: allergies Docusate Sodium (Colace Cap*) 100 mg PO BID [facility] Last Admin: 08/05/17 20:46 Dose: 100 mg Fentanyl Citrate (Fentanyl*) 25 mcg IV SLOW PU Q2H PRN PRN Reason: PAIN Furosemide (Lasix Iv*) 40 mg IV 0800,1700 [facility] Hydromorphone HCl (Dilaudid Tab*) 2 mg PO Q4H PRN PRN Reason: PAIN Lactulose (Lactulose*) 30 ml PO Q6H PRN PRN Reason: constipation Magnesium Hydroxide (Milk Of Magnesia Liq*) 30 ml PO BID [facility] Last Admin: 08/05/17 20:47 Dose: Not Given Meclizine HCl (Antivert Tab*) 6.25 mg PO TID PRN PRN Reason: VERTIGO Metoprolol Tartrate (Lopressor Tab*) 12.5 mg PO Q12HR [facility] Last Admin: 08/05/17 20:47 Dose: 12.5 mg Ondansetron HCl (Zofran Inj*) 4 mg IV Q6H PRN PRN Reason: NAUSEA/VOMITING Last Admin: 08/04/17 09:11 Dose: 4 mg Pharmacy Profile Note (Coumadin Daily Reminder*) 0 note FOLLOW UP 1700 [facility] Last Admin: 08/05/17 17:16 Dose: 1 note Polyethylene Glycol/Electrolytes (Miralax*) 17 gm PO DAILY PRN PRN Reason: Constipation Potassium Chloride (Klor Con Er Tab*) 40 meq PO DAILY [facility] Scopolamine (Transderm-Scop 1.5 Mg Patch*) 1 patch TRANSDERM Q72H PRN PRN Reason: NAUSEA Temazepam (Restoril Cap*) 15 mg PO BEDTIME PRN PRN Reason: INSOMNIA Vital Signs 08/05/17 08/05/17 08/05/17 08:00 08:15 08:30 Temperature Pulse Rate 79 77 79 Respiratory 29 30 22 Rate Blood Pressure 125/67 123/68 110/76 (mmHg) O2 Sat by Pulse 95 95 96 Oximetry 08/05/17 08/05/17 08/05/17 08:45 09:00 09:15 Temperature Pulse Rate 77 80 78 Respiratory 30 18 25 Rate Blood Pressure 125/62 122/60 124/62 (mmHg) O2 Sat by Pulse 93 93 94 Oximetry 08/05/17 08/05/17 08/05/17 09:30 09:45 10:00 Temperature Pulse Rate 78 80 85 Respiratory 26 26 22 Rate Blood Pressure 127/60 118/56 126/64 (mmHg) O2 Sat by Pulse 93 89 93 Oximetry 08/05/17 08/05/17 08/05/17 10:15 10:31 10:45 Temperature Pulse Rate 80 83 82 Respiratory 25 34 27 Rate Blood Pressure 128/60 117/54 121/63 (mmHg) O2 Sat by Pulse 95 95 94 Oximetry 08/05/17 08/05/17 08/05/17 11:00 11:15 11:30 Temperature Pulse Rate 77 83 78 Respiratory 25 28 26 Rate Blood Pressure 117/65 123/58 123/61 (mmHg) O2 Sat by Pulse 95 94 95 Oximetry 08/05/17 08/05/17 08/05/17 11:31 11:45 12:00 Temperature 99.1 F Pulse Rate 79 73 Respiratory 25 22 Rate Blood Pressure 104/55 113/54 (mmHg) O2 Sat by Pulse 95 95 Oximetry 08/05/17 08/05/17 08/05/17 12:15 12:30 12:45 Temperature Pulse Rate 82 77 77 Respiratory 26 29 26 Rate Blood Pressure 137/66 118/68 118/65 (mmHg) O2 Sat by Pulse 90 93 94 Oximetry 08/05/17 08/05/17 08/05/17 13:00 13:15 13:30 Temperature Pulse Rate 80 81 82 Respiratory 16 24 20 Rate Blood Pressure 122/74 116/67 118/64 (mmHg) O2 Sat by Pulse 93 95 94 Oximetry 08/05/17 08/05/17 08/05/17 13:45 14:00 14:15 Temperature Pulse Rate 80 72 77 Respiratory 27 23 28 Rate Blood Pressure 114/64 101/59 119/62 (mmHg) O2 Sat by Pulse 94 95 93 Oximetry 08/05/17 08/05/17 08/05/17 14:31 14:45 15:00 Temperature Pulse Rate 75 71 82 Respiratory 26 22 23 Rate Blood Pressure 112/63 104/54 (mmHg) O2 Sat by Pulse 93 96 86 Oximetry 08/05/17 08/05/17 08/05/17 15:01 15:15 15:30 Temperature Pulse Rate 84 80 78 Respiratory 24 25 23 Rate Blood Pressure 123/61 128/62 125/65 (mmHg) O2 Sat by Pulse 86 90 92 Oximetry 08/05/17 08/05/17 08/05/17 15:45 16:00 16:01 Temperature 99.3 F Pulse Rate 79 74 75 Respiratory 32 26 27 Rate Blood Pressure 124/65 112/57 (mmHg) O2 Sat by Pulse 93 92 91 Oximetry 08/05/17 08/05/17 08/05/17 16:15 16:30 16:45 Temperature Pulse Rate 76 74 72 Respiratory 20 27 22 Rate Blood Pressure 119/57 119/60 123/77 (mmHg) O2 Sat by Pulse 94 95 95 Oximetry 08/05/17 08/05/17 08/05/17 17:00 17:15 17:30 Temperature Pulse Rate 76 79 73 Respiratory 28 21 25 Rate Blood Pressure 115/83 128/67 126/56 (mmHg) O2 Sat by Pulse 95 94 95 Oximetry 08/05/17 08/05/17 08/05/17 18:00 18:16 18:31 Temperature Pulse Rate 78 78 81 Respiratory 29 26 25 Rate Blood Pressure 127/56 140/63 119/60 (mmHg) O2 Sat by Pulse 97 93 95 Oximetry 08/05/17 08/05/17 08/05/17 18:46 19:00 19:15 Temperature Pulse Rate 83 84 80 Respiratory 27 26 27 Rate Blood Pressure 121/56 116/57 116/60 (mmHg) O2 Sat by Pulse 95 95 95 Oximetry 08/05/17 08/05/17 08/05/17 19:24 19:30 19:45 Temperature 100.1 F Pulse Rate 83 79 Respiratory 27 23 Rate Blood Pressure 117/58 117/56 (mmHg) O2 Sat by Pulse 94 96 Oximetry 08/05/17 08/05/17 08/05/17 20:00 20:30 21:00 Temperature Pulse Rate 88 75 78 Respiratory 20 25 28 Rate Blood Pressure 137/84 122/57 136/62 (mmHg) O2 Sat by Pulse 94 97 93 Oximetry 08/05/17 08/05/17 08/05/17 21:30 22:00 22:30 Temperature Pulse Rate 74 73 70 Respiratory 28 21 23 Rate Blood Pressure 123/60 127/73 118/57 (mmHg) O2 Sat by Pulse 90 93 94 Oximetry 08/05/17 08/05/17 08/05/17 23:00 23:09 23:30 Temperature Pulse Rate 69 75 76 Respiratory 23 20 26 Rate Blood Pressure 95/52 128/72 (mmHg) O2 Sat by Pulse 93 92 92 Oximetry 08/06/17 08/06/17 08/06/17 00:00 00:30 01:00 Temperature 99.4 F Pulse Rate 77 80 80 Respiratory 27 21 29 Rate Blood Pressure 135/64 138/74 133/66 (mmHg) O2 Sat by Pulse 91 92 94 Oximetry 08/06/17 08/06/17 08/06/17 01:30 02:00 02:30 Temperature Pulse Rate 73 65 82 Respiratory 23 21 27 Rate Blood Pressure 107/53 117/56 137/64 (mmHg) O2 Sat by Pulse 95 98 93 Oximetry 08/06/17 08/06/17 08/06/17 03:00 03:30 04:00 Temperature 100.7 F Pulse Rate 82 81 80 Respiratory 25 28 25 Rate Blood Pressure 121/60 128/65 120/53 (mmHg) O2 Sat by Pulse 93 96 94 Oximetry 08/06/17 08/06/17 08/06/17 04:30 05:00 05:30 Temperature Pulse Rate 76 84 84 Respiratory 26 27 28 Rate Blood Pressure 123/72 143/68 126/83 (mmHg) O2 Sat by Pulse 94 92 93 Oximetry 08/06/17 08/06/17 08/06/17 06:00 06:30 07:00 Temperature Pulse Rate 81 80 79 Respiratory 24 27 31 Rate Blood Pressure 131/64 137/65 125/74 (mmHg) O2 Sat by Pulse 94 95 95 Oximetry 08/06/17 08/06/17 07:35 07:38 Temperature 99.9 F Pulse Rate Respiratory 30 Rate Blood Pressure (mmHg) O2 Sat by Pulse Oximetry Oxygen Devices in Use Now: Nasal Cannula - at 12L Appearance: 89 yo F in nAD,AAOx3 Eyes: No Scleral Icterus, PERRLA Ears/Nose/Mouth/Throat: NL Teeth, Lips, Gums, Mucous Membranes Moist Neck: NL Appearance and Movements; NL JVP, Trachea Midline Respiratory: Symmetrical Chest Expansion and Respiratory Effort, - - crackles b/ l lower to mid lungs Cardiovascular: NL Sounds; No Murmurs; No JVD, RRR Abdominal: NL Sounds; No Tenderness; No Distention, No Hepatosplenomegaly Lymphatic: No Cervical Adenopathy Extremities: No Clubbing, Cyanosis, - - mild left post op thigh edema Skin: No Nodules or Sclerosis, - - left thigh -post op incision not uncovered from surgical dressings Neurological: Alert and Oriented x 3, NL Muscle Strength and Tone Result Diagrams: 08/06/17 05:48 08/05/17 23:18 Assess/Plan/Problems-Billing 89 yo F with hx of HTN, HLD, OA s/p L JOBY by Dr. Jarrell on 08/02/17 1) S/P L JOBY - management as per Ortho - patient had been on Fentanyl patch in the past and family agreed to try Fentanyl IV for pain control - Coumadin 2.) Acute hypoxemic respiratory failure due to post op pulmonary edema-suspect due to a combination of IVF overload and acute systolic CHF (Echo showed EF 55% and inferior wall hypokinesis, mod MR) Off BIPAP, but on high flow NC at 12L, will cont IV Lasix BID 3)NSTEMI- with troponin peaked at 4.6 on 08/04/17-pt never experienced CP, but her nausea. suspect due to CHF and post op fluid overload Appreciate cardiology consult cont ASA, started low dose BB on 08/06/17, increasing the dose today by cardiology. Pt is on Coumadin, INR therapeutic yesterday 4) dyslipidemia LDL 137- pt is allergic to statins cont cardiac diet 5) HTN - BPs normal/stable - continue to hold home Amlodipine and Losartan/HCTZ for now 6) DVT PPx Coumadin 7) nausea: -cont Scopolamine patch -cont Zofran 8)Acute post op anemia -Hb lower today, may be due to hemodilution. Due to pt's overall volume overload would not transfuse. will repeat Hb level tonight -leukocytosis -resolving, suspect due micha the stress related to resp failure, no infection identified Thank you for this consult, will continue to follow
[2017-08-06] MEDS: Docusate CAP* 100 MG PO SCH ×2 (08:04→20:35)
[2017-08-06] MEDS: Metoprolol Tartrate TAB* 25 MG PO SCH ×3 (08:04→20:35)
[2017-08-06] MEDS: Aspirin TAB* 325 MG PO SCH (08:04)
[2017-08-06] MEDS: Furosemide IV* 10 MG/ML VIAL (40 MG) IV SCH ×2 (08:05→17:13)
[2017-08-06] MEDS: Potassium Chlor TAB* 10 MEQ TAB.ER PO SCH (08:05)
[2017-08-06] MEDS: Magnesium Hydroxide LIQ* 30 ML UDC PO SCH ×2 (08:05→20:35)
--- NOTE | 2017-08-06 08:26 | PN ---
Subjective Date of Service: 08/06/17 - CC: nausea Interval History: Pt nauseated taking pills. Denies CP. Denies SOB. STates walking and no CP or nausea walking. Medications Active Medications: Acetaminophen (Tylenol Tab*) 650 mg PO Q4H PRN PRN Reason: PAIN OR TEMPERATURE Last Admin: 08/04/17 10:58 Dose: 650 mg Aspirin (Aspirin Tab*) 325 mg PO DAILY [facility] Last Admin: 08/06/17 08:04 Dose: 325 mg Bisacodyl (Dulcolax Supp*) 10 mg [place] DAILY PRN PRN Reason: constipation Cetirizine HCl (Zyrtec*) 10 mg PO DAILY PRN; Protocol PRN Reason: allergies Docusate Sodium (Colace Cap*) 100 mg PO BID [facility] Last Admin: 08/06/17 08:04 Dose: 100 mg Fentanyl Citrate (Fentanyl*) 25 mcg IV SLOW PU Q2H PRN PRN Reason: PAIN Furosemide (Lasix Iv*) 40 mg IV 0800,1700 [facility] Last Admin: 08/06/17 08:05 Dose: 40 mg Hydromorphone HCl (Dilaudid Tab*) 2 mg PO Q4H PRN PRN Reason: PAIN Lactulose (Lactulose*) 30 ml PO Q6H PRN PRN Reason: constipation Magnesium Hydroxide (Milk Of Magnesia Liq*) 30 ml PO BID [facility] Last Admin: 08/06/17 08:05 Dose: Not Given Meclizine HCl (Antivert Tab*) 6.25 mg PO TID PRN PRN Reason: VERTIGO Metoprolol Tartrate (Lopressor Tab*) 12.5 mg PO Q12HR [facility] Last Admin: 08/06/17 08:04 Dose: 12.5 mg Ondansetron HCl (Zofran Inj*) 4 mg IV Q6H PRN PRN Reason: NAUSEA/VOMITING Last Admin: 08/04/17 09:11 Dose: 4 mg Pharmacy Profile Note (Coumadin Daily Reminder*) 0 note FOLLOW UP 1700 [facility] Last Admin: 08/05/17 17:16 Dose: 1 note Polyethylene Glycol/Electrolytes (Miralax*) 17 gm PO DAILY PRN PRN Reason: Constipation Potassium Chloride (Klor Con Er Tab*) 40 meq PO DAILY [facility] Last Admin: 08/06/17 08:05 Dose: 40 meq Scopolamine (Transderm-Scop 1.5 Mg Patch*) 1 patch TRANSDERM Q72H PRN PRN Reason: NAUSEA Temazepam (Restoril Cap*) 15 mg PO BEDTIME PRN PRN Reason: INSOMNIA Objective Vital Signs: Temp Pulse Resp BP Pulse Ox 99.9 F 80 27 139/70 95 08/06/17 07:38 08/06/17 08:01 08/06/17 08:09 08/06/17 08:01 08/06/17 08:01 Oxygen Devices in Use Now: Nasal Cannula - at 12L Appearance: eldely woman, sitting 30 degrees, looks fair. Eyes: No Scleral Icterus, PERRLA Ears/Nose/Mouth/Throat: Clear Oropharnyx, Mucous Membranes Moist Neck: NL Appearance and Movements; NL JVP, Trachea Midline, No Thyroid Enlargement, Masses Respiratory: Symmetrical Chest Expansion and Respiratory Effort - no rales or wheezing heard. Cardiovascular: RRR - no murmer heard Abdominal: NL Sounds; No Tenderness; No Distention, No Hepatosplenomegaly Skin: No Rash or Ulcers Neurological: Alert and Oriented x 3 Lines/Tubes/Other Access: Clean, Dry and Intact Thomas, Clean, Dry and Intact Peripheral IV Laboratory Results: 08/06/17 05:48 08/05/17 23:18 INR (Anticoag Therapy) 2.15 (0.89-1.11) H 08/05/17 05:15 Triglycerides 157 mg/dL 08/05/17 05:15 Cholesterol 214 mg/dL 08/05/17 05:15 LDL Cholesterol 137 mg/dL 08/05/17 05:15 HDL Cholesterol 45.6 mg/dL 08/05/17 05:15 08/03/17 08/04/17 08/04/17 06:55 11:07 17:20 Troponin I 0.01 2.90 H* 4.64 H* 08/04/17 08/05/17 23:02 05:15 Troponin I 4.18 H* 3.71 H* EKG Data: Telemetry Sinus rhythm 80's Assessment/Plan 89 yo with hip fracture, s/p repair. Post op complicated by CHF, NQMI and has mitral insufficiency on echo, EF 55%. Currently high O2 requirements to maintain saturation and per nurses crackles this AM prior to Lasix 40 mg. Anemic Points of Discussion: NQMI: Trops coming down. Concern that nausea is an anginal equivalent. Increase Toprol to 25 m BID Agree with dieresis for CHF. As statin intolerant, options include Welchol or Tricor. CHF: Appears due to IVF periop, mitral insufficiency, diastolic failure and anemia could be contributing. Low KCL: Replacement noted, agree. KCl goal 4-5. Consider aldactone short term as may help with dieresis. Anemia: This is likely contributing to diastolic CHF. Iron replacement at least. Can see if improves post dieresis.
--- NOTE | 2017-08-06 09:57 | PN ---
Progress Note - Progress Note Date of Service: 08/06/17 SOAP: Subjective: Pt is in chair, reports feeling better. Denies CP, min SOB. Objective: 4 L O2 by nasal cannula chest - unlabored breathing BLE - no edema, nvi. Vital Signs: Temp Pulse Resp BP Pulse Ox 99.9 F 81 18 143/73 97 08/06/17 07:38 08/06/17 09:00 08/06/17 09:13 08/06/17 09:00 08/06/17 09:00 Laboratory Results - last 24 hr 08/05/17 08/06/17 08/06/17 23:18 05:48 05:48 WBC 11.3 H RBC 2.94 L Hgb 8.5 L Hct 26 L MCV 88 MCH 29 MCHC 33 RDW 15 Plt Count 239 MPV 9 Potassium 3.7 Magnesium 1.9 Assessment: 89 yo F pod 4 s/p JOBY Plan: need inr pt/ot today wbat, post hip precautions per Dr Michele, lasix diuresis today and cont. ICU weaning O2 as tolerated. will dose coumadin today
[2017-08-06 15:05] LABS: Comments Flag Yes; Hematocrit 28 % (35-47); Hemoglobin 9.1 g/dl (12.0-16.0)
[2017-08-06] MEDS ORDERED: Warfarin TAB(*) 2 MG PO ONE (17:00)
[2017-08-07 05:40] LABS: Hematocrit 25 % (35-47); Hemoglobin 8.6 g/dl (12.0-16.0); Mean Corpuscular HGB Conc 34 g/dl (31-36); Mean Corpuscular Hemoglobin 30 pg (27-31); Mean Corpuscular Volume 88 fL (80-97); Mean Platelet Volume 8 um3 (7.4-10.4); Red Blood Count 2.85 10^6/ul (4.0-5.4); Red Cell Distribution Width 15 % (10.5-15); White Blood Count 9.7 10^3/ul (3.5-10.8)
[2017-08-07 05:55] LABS: BUN/Creatinine Ratio 28.8 (8-20); Calcium 8.5 mg/dL (8.6-10.3); EGFR African American 108.4 (>60); EGFR Non-African American 84.3 (>60); Magnesium 1.7 mg/dL (1.9-2.7); Potassium 3.3 mmol/L (3.5-5.0)
[2017-08-07] MEDS: Furosemide IV* 10 MG/ML VIAL (40 MG) IV SCH ×2 (07:46→16:55)
--- NOTE | 2017-08-07 07:50 | PN ---
Progress Note - Progress Note Date of Service: 08/07/17 SOAP: Subjective: Pt. is alert, denies sob or cp. Reports hip pain is minimal Objective: LLE - dressing changed, inc c/d/i. distally nvi Vital Signs: Temp Pulse Resp BP Pulse Ox 99.8 F 80 21 148/75 90 08/07/17 07:35 08/07/17 07:00 08/07/17 07:00 08/07/17 07:00 08/07/17 07:00 Laboratory Results - last 24 hr 08/06/17 08/06/17 08/07/17 14:55 14:55 05:28 WBC RBC Hgb 9.1 L Hct 28 L MCV MCH MCHC RDW Plt Count MPV Neut % (Auto) Lymph % (Auto) Merrick % (Auto) Eos % (Auto) Baso % (Auto) Absolute Neuts (auto) Absolute Lymphs (auto) Absolute Monos (auto) Absolute Eos (auto) Absolute Basos (auto) Absolute Nucleated RBC Nucleated RBC % INR (Anticoag Therapy) 2.43 H Sodium 139 Potassium 3.3 L Chloride 102 Carbon Dioxide 29 Anion Gap 8 BUN 19 Creatinine 0.66 Est GFR ( Amer) 108.4 Est GFR (Non-Af Amer) 84.3 BUN/Creatinine Ratio 28.8 H Glucose 104 H Calcium 8.5 L Magnesium 1.7 L 08/07/17 08/07/17 05:28 05:28 WBC 9.7 RBC 2.85 L Hgb 8.6 L Hct 25 L MCV 88 MCH 30 MCHC 34 RDW 15 Plt Count 281 MPV 8 Neut % (Auto) 75.5 Lymph % (Auto) 13.2 L Merrick % (Auto) 9.5 H Eos % (Auto) 1.3 Baso % (Auto) 0.5 Absolute Neuts (auto) 7.3 Absolute Lymphs (auto) 1.3 Absolute Monos (auto) 0.9 H Absolute Eos (auto) 0.1 Absolute Basos (auto) 0.1 Absolute Nucleated RBC 0.01 Nucleated RBC % 0.1 INR (Anticoag Therapy) 2.54 H Sodium Potassium Chloride Carbon Dioxide Anion Gap BUN Creatinine Est GFR ( Amer) Est GFR (Non-Af Amer) BUN/Creatinine Ratio Glucose Calcium Magnesium Assessment: 89 yo F pod 5 s/p LTHA Plan: pt/ot wbat lle with post hip precautions\ 2 mg coumadin tonight transfer to [facility] if hospitalist agrees
[2017-08-07] MEDS ORDERED: Magnesium Sulfate 1 GM IV* 1 GM/100 ML BAG IV ONE (08:00)
[2017-08-07] MEDS: Docusate CAP* 100 MG PO SCH ×2 (09:17→20:18)
[2017-08-07] MEDS: Metoprolol Tartrate TAB* 25 MG PO SCH ×2 (09:17→20:32)
[2017-08-07] MEDS: Potassium Chlor TAB* 10 MEQ TAB.ER PO SCH (09:17)
[2017-08-07] MEDS: Aspirin TAB* 325 MG PO SCH (09:17)
[2017-08-07] MEDS: Magnesium Hydroxide LIQ* 30 ML UDC PO SCH ×2 (09:18→20:18)
--- NOTE | 2017-08-07 10:51 | PN ---
Subjective Date of Service: 08/07/17 Interval History: Pt did very well overnight. William clark/flora Walked 50 ft with PT. down to 4 L Nc Family History: Unchanged from Admission Social History: Unchanged from Admission Past Medical History: Unchanged from Admission Objective Active Medications: Acetaminophen (Tylenol Tab*) 650 mg PO Q4H PRN PRN Reason: PAIN OR TEMPERATURE Last Admin: 08/04/17 10:58 Dose: 650 mg Aspirin (Aspirin Tab*) 325 mg PO DAILY [facility] Last Admin: 08/07/17 09:17 Dose: 325 mg Bisacodyl (Dulcolax Supp*) 10 mg [place] DAILY PRN PRN Reason: constipation Cetirizine HCl (Zyrtec*) 10 mg PO DAILY PRN; Protocol PRN Reason: allergies Docusate Sodium (Colace Cap*) 100 mg PO BID [facility] Last Admin: 08/07/17 09:17 Dose: 100 mg Fentanyl Citrate (Fentanyl*) 25 mcg IV SLOW PU Q2H PRN PRN Reason: PAIN Furosemide (Lasix Iv*) 40 mg IV 0800,1700 [facility] Last Admin: 08/07/17 07:46 Dose: 40 mg Hydromorphone HCl (Dilaudid Tab*) 2 mg PO Q4H PRN PRN Reason: PAIN Lactulose (Lactulose*) 30 ml PO Q6H PRN PRN Reason: constipation Magnesium Hydroxide (Milk Of Magnesia Liq*) 30 ml PO BID [facility] Last Admin: 08/07/17 09:18 Dose: Not Given Meclizine HCl (Antivert Tab*) 6.25 mg PO TID PRN PRN Reason: VERTIGO Metoprolol Tartrate (Lopressor Tab*) 25 mg PO Q12HR [facility] Last Admin: 08/07/17 09:17 Dose: 25 mg Ondansetron HCl (Zofran Inj*) 4 mg IV Q6H PRN PRN Reason: NAUSEA/VOMITING Last Admin: 08/04/17 09:11 Dose: 4 mg Pharmacy Profile Note (Coumadin Daily Reminder*) 0 note FOLLOW UP 1700 [facility] Last Admin: 08/06/17 17:14 Dose: 1 note Polyethylene Glycol/Electrolytes (Miralax*) 17 gm PO DAILY PRN PRN Reason: Constipation Potassium Chloride (Klor Con Er Tab*) 40 meq PO DAILY [facility] Last Admin: 08/07/17 09:17 Dose: 40 meq Potassium Chloride (Klor Con Er Tab*) 20 meq PO ONCE ONE Stop: 08/07/17 14:01 Scopolamine (Transderm-Scop 1.5 Mg Patch*) 1 patch TRANSDERM Q72H PRN PRN Reason: NAUSEA Temazepam (Restoril Cap*) 15 mg PO BEDTIME PRN PRN Reason: INSOMNIA Warfarin Sodium (Coumadin Tab(*)) 2 mg PO ONCE@1700 NR PRN Reason: Protocol Stop: 08/07/17 23:59 Vital Signs 08/06/17 08/06/17 08/06/17 11:00 11:46 11:49 Temperature Pulse Rate 69 68 Respiratory 33 21 31 Rate Blood Pressure 107/56 (mmHg) O2 Sat by Pulse 93 93 Oximetry 08/06/17 08/06/17 08/06/17 12:00 13:00 13:20 Temperature 99.5 F Pulse Rate 72 76 Respiratory 21 27 25 Rate Blood Pressure 150/72 (mmHg) O2 Sat by Pulse 97 92 Oximetry 08/06/17 08/06/17 08/06/17 14:00 15:00 15:01 Temperature Pulse Rate 79 76 76 Respiratory 24 27 27 Rate Blood Pressure 119/55 140/69 (mmHg) O2 Sat by Pulse 89 88 87 Oximetry 08/06/17 08/06/17 08/06/17 16:00 16:02 16:05 Temperature 100 F 100 F Pulse Rate 78 Respiratory 22 Rate Blood Pressure (mmHg) O2 Sat by Pulse 91 91 Oximetry 08/06/17 08/06/17 08/06/17 16:52 17:00 17:48 Temperature Pulse Rate 79 77 Respiratory 30 25 29 Rate Blood Pressure 125/72 125/72 (mmHg) O2 Sat by Pulse 88 93 Oximetry 08/06/17 08/06/17 08/06/17 18:00 18:08 18:31 Temperature Pulse Rate 90 87 Respiratory 35 29 25 Rate Blood Pressure 160/76 (mmHg) O2 Sat by Pulse 95 92 Oximetry 08/06/17 08/06/17 08/06/17 19:00 19:01 19:53 Temperature 99.2 F Pulse Rate 81 Respiratory 30 28 Rate Blood Pressure (mmHg) O2 Sat by Pulse 96 Oximetry 08/06/17 08/06/17 08/06/17 20:00 21:00 22:00 Temperature Pulse Rate 85 69 64 Respiratory 21 25 29 Rate Blood Pressure 150/85 135/77 133/66 (mmHg) O2 Sat by Pulse 90 90 92 Oximetry 08/06/17 08/06/17 08/06/17 23:00 23:53 23:55 Temperature 100.0 F Pulse Rate 69 73 Respiratory 29 20 Rate Blood Pressure 125/65 (mmHg) O2 Sat by Pulse 91 92 Oximetry 08/07/17 08/07/17 08/07/17 00:00 01:00 02:00 Temperature Pulse Rate 74 79 77 Respiratory 27 27 24 Rate Blood Pressure 126/62 137/69 141/67 (mmHg) O2 Sat by Pulse 91 92 92 Oximetry 08/07/17 08/07/17 08/07/17 02:40 03:00 03:03 Temperature Pulse Rate 74 71 Respiratory 26 22 25 Rate Blood Pressure 125/61 (mmHg) O2 Sat by Pulse 93 93 Oximetry 08/07/17 08/07/17 08/07/17 04:00 05:00 06:00 Temperature 99.7 F Pulse Rate 67 78 79 Respiratory 17 20 25 Rate Blood Pressure 132/62 135/65 129/77 (mmHg) O2 Sat by Pulse 93 95 92 Oximetry 08/07/17 08/07/17 08/07/17 07:00 07:35 07:40 Temperature 99.8 F Pulse Rate 80 Respiratory 22 20 Rate Blood Pressure 148/75 (mmHg) O2 Sat by Pulse 90 98 Oximetry 08/07/17 08/07/17 08/07/17 08:00 08:01 09:00 Temperature Pulse Rate 93 95 86 Respiratory 22 26 26 Rate Blood Pressure 150/103 154/64 (mmHg) O2 Sat by Pulse 90 93 98 Oximetry 08/07/17 08/07/17 10:00 10:06 Temperature Pulse Rate 100 72 Respiratory 24 Rate Blood Pressure 124/62 (mmHg) O2 Sat by Pulse 97 99 Oximetry Oxygen Devices in Use Now: Nasal Cannula - at4L Appearance: 89 yo F in nAD, aAOx3 Eyes: No Scleral Icterus, PERRLA Ears/Nose/Mouth/Throat: NL Teeth, Lips, Gums, Mucous Membranes Moist Neck: NL Appearance and Movements; NL JVP, Trachea Midline Respiratory: Symmetrical Chest Expansion and Respiratory Effort, - - crackles at b/l lower to mid lungs Cardiovascular: NL Sounds; No Murmurs; No JVD, RRR Abdominal: NL Sounds; No Tenderness; No Distention, No Hepatosplenomegaly Lymphatic: No Cervical Adenopathy Extremities: No Edema, No Clubbing, Cyanosis Skin: No Rash or Ulcers, No Nodules or Sclerosis, - - left thigh post op dressings not removed, mild thigh edema noted Neurological: Alert and Oriented x 3, NL Muscle Strength and Tone Result Diagrams: 08/07/17 05:28 08/07/17 05:28 Assess/Plan/Problems-Billing 89 yo F with hx of HTN, HLD, OA s/p L JOBY by Dr. Jarrell on 08/02/17 1) S/P L JOBY - management as per Ortho - patient had been on Fentanyl patch in the past and family agreed to try Fentanyl IV for pain control - Coumadin 2.) Acute hypoxemic respiratory failure due to post op pulmonary edema-suspect due to a combination of IVF overload and acute systolic CHF (Echo showed EF 55% and inferior wall hypokinesis, mod MR) Off BIPAP, off high flow NC , will cont IV Lasix BID x one more day 3)NSTEMI- with troponin peaked at 4.6 on 08/04/17-pt never experienced CP, but her nausea. suspect due to CHF and post op fluid overload Appreciate cardiology consult cont ASA, started BB on 08/06/17.. Pt is on Coumadin, INR therapeutic 4) dyslipidemia LDL 137- pt is allergic to statins cont cardiac diet 5) HTN - BPs normal/stable - continue to hold home Amlodipine and Losartan/HCTZ for now 6) DVT PPx Coumadin 7) nausea: cont Scopolamine patch cont Zofran 8)Acute post op anemia -Hb low but stable. Due to pt's overall volume overload would not transfuse. 9)Hypokalemia/hypomagnesemia-replacing Thank you for this consult, will continue to follow
[2017-08-07] MEDS ORDERED: Potassium Chlor TAB* 10 MEQ TAB.ER PO ONE ×2 (14:00)
[2017-08-07] MEDS ORDERED: Warfarin TAB(*) 2 MG PO NR (17:00)
[2017-08-08 05:49] LABS: Hematocrit 27 % (35-47); Hemoglobin 9.3 g/dl (12.0-16.0); Mean Corpuscular HGB Conc 34 g/dl (31-36); Mean Corpuscular Hemoglobin 30 pg (27-31); Mean Corpuscular Volume 88 fL (80-97); Mean Platelet Volume 8 um3 (7.4-10.4); Red Blood Count 3.12 10^6/ul (4.0-5.4); Red Cell Distribution Width 15 % (10.5-15); White Blood Count 9.6 10^3/ul (3.5-10.8)
[2017-08-08 06:08] LABS: BUN/Creatinine Ratio 30.9 (8-20); Calcium 8.7 mg/dL (8.6-10.3); EGFR African American 104.8 (>60); EGFR Non-African American 81.5 (>60); Magnesium 1.9 mg/dL (1.9-2.7); Potassium 3.5 mmol/L (3.5-5.0)
--- NOTE | 2017-08-08 08:49 | PN ---
Progress Note - Progress Note Date of Service: 08/08/17 SOAP: Subjective: [Pt was seen this am sitting up in bed. Pt states she is feeling better. She denies any SOB, chest pain, numbness or tingling of lower extremities. ] Objective: [General: Pt is alert, oriented and awake. NAD. LLE: Dressing is c/d/i, was changed last evening by Dr. Jarrell. +pf, df. NVI. Vital Signs Temp 98.6 F 08/08/17 07:40 Pulse 66 08/08/17 07:40 Resp 16 08/08/17 07:40 BP 134/55 08/08/17 07:40 Pulse Ox 98 08/08/17 07:40 Intake & Output 08/07/17 08/08/17 08/08/17 18:59 06:59 18:59 Intake Total 925 200 120 Output Total 850 300 Balance 75 -100 120 Weight 129 lb 12.8 oz Intake: IVPB 105 Magnesium 1 gm 105 Oral 820 200 120 Output: Urine 850 300 Other: Estimated Void Medium Estimated Stool Amount Medium ] Assessment: 89 yo F pod 6 s/p LTHA Plan: pt/ot wbat lle with post hip precautions hold coumadin tonight, INR 2.69 Continue to wean off of O2 per hospitalists protocol.
[2017-08-08] MEDS: Potassium Chlor TAB* 10 MEQ TAB.ER PO SCH (09:04)
[2017-08-08] MEDS: Metoprolol Tartrate TAB* 25 MG PO SCH ×2 (09:08→20:53)
[2017-08-08] MEDS: Magnesium Hydroxide LIQ* 30 ML UDC PO SCH ×2 (09:09→20:53)
[2017-08-08] MEDS: Docusate CAP* 100 MG PO SCH ×2 (09:09→20:53)
[2017-08-08] MEDS: Aspirin TAB* 325 MG PO SCH (09:09)
--- NOTE | 2017-08-08 16:14 | PN ---
Subjective Date of Service: 08/08/17 Interval History: pt is feeling "great". On 1 L of oxygen, ambulation down the hallways Family History: Unchanged from Admission Social History: Unchanged from Admission Past Medical History: Unchanged from Admission Objective Active Medications: Acetaminophen (Tylenol Tab*) 650 mg PO Q4H PRN PRN Reason: PAIN OR TEMPERATURE Last Admin: 08/04/17 10:58 Dose: 650 mg Aspirin (Aspirin Tab*) 325 mg PO DAILY [facility] Last Admin: 08/08/17 09:09 Dose: 325 mg Bisacodyl (Dulcolax Supp*) 10 mg TX DAILY PRN PRN Reason: constipation Cetirizine HCl (Zyrtec*) 10 mg PO DAILY PRN; Protocol PRN Reason: allergies Docusate Sodium (Colace Cap*) 100 mg PO BID [facility] Last Admin: 08/08/17 09:09 Dose: Not Given Fentanyl Citrate (Fentanyl*) 25 mcg IV SLOW PU Q2H PRN PRN Reason: PAIN Hydromorphone HCl (Dilaudid Tab*) 2 mg PO Q4H PRN PRN Reason: PAIN Lactulose (Lactulose*) 30 ml PO Q6H PRN PRN Reason: constipation Magnesium Hydroxide (Milk Of Magnesia Liq*) 30 ml PO BID [facility] Last Admin: 08/08/17 09:09 Dose: Not Given Meclizine HCl (Antivert Tab*) 6.25 mg PO TID PRN PRN Reason: VERTIGO Metoprolol Tartrate (Lopressor Tab*) 25 mg PO Q12HR [facility] Last Admin: 08/08/17 09:08 Dose: 25 mg Ondansetron HCl (Zofran Inj*) 4 mg IV Q6H PRN PRN Reason: NAUSEA/VOMITING Last Admin: 08/04/17 09:11 Dose: 4 mg Pharmacy Profile Note (Coumadin Daily Reminder*) 0 note FOLLOW UP 1700 [facility] Last Admin: 08/07/17 16:54 Dose: 1 note Polyethylene Glycol/Electrolytes (Miralax*) 17 gm PO DAILY PRN PRN Reason: Constipation Potassium Chloride (Klor Con Er Tab*) 40 meq PO DAILY [facility] Last Admin: 08/08/17 09:04 Dose: 40 meq Scopolamine (Transderm-Scop 1.5 Mg Patch*) 1 patch TRANSDERM Q72H PRN PRN Reason: NAUSEA Temazepam (Restoril Cap*) 15 mg PO BEDTIME PRN PRN Reason: INSOMNIA Vital Signs 08/07/17 08/07/17 08/07/17 19:10 20:45 23:31 Temperature 98.4 F 99.0 F Pulse Rate 71 69 Respiratory 20 18 16 Rate Blood Pressure 124/52 130/52 (mmHg) O2 Sat by Pulse 97 94 Oximetry 08/08/17 08/08/17 08/08/17 03:25 07:40 08:31 Temperature 98.5 F 98.6 F Pulse Rate 74 66 Respiratory 16 16 16 Rate Blood Pressure 144/56 134/55 (mmHg) O2 Sat by Pulse 97 98 98 Oximetry 08/08/17 11:13 Temperature 98.1 F Pulse Rate 59 Respiratory 16 Rate Blood Pressure 121/56 (mmHg) O2 Sat by Pulse 99 Oximetry Oxygen Devices in Use Now: Nasal Cannula Appearance: 89 yo F in NAD, AAOx3 Eyes: No Scleral Icterus, PERRLA Ears/Nose/Mouth/Throat: NL Teeth, Lips, Gums, Mucous Membranes Moist Neck: NL Appearance and Movements; NL JVP, Trachea Midline Respiratory: Symmetrical Chest Expansion and Respiratory Effort, - - mild b/l lower lungs crackles Cardiovascular: NL Sounds; No Murmurs; No JVD, RRR Abdominal: NL Sounds; No Tenderness; No Distention, No Hepatosplenomegaly Lymphatic: No Cervical Adenopathy Extremities: No Edema, No Clubbing, Cyanosis Skin: No Nodules or Sclerosis, - - left thigh post op wound, with no dehiscence , mild ecchymosis Neurological: Alert and Oriented x 3, NL Muscle Strength and Tone Result Diagrams: 08/08/17 05:33 08/08/17 05:33 Assess/Plan/Problems-Billing 89 yo F with hx of HTN, HLD, OA s/p L JOBY by Dr. Jarrell on 08/02/17 1) S/P L JOBY - management as per Ortho - patient had been on Fentanyl patch in the past and family agreed to try Fentanyl IV for pain control - Coumadin 2.) Acute hypoxemic respiratory failure due to post op pulmonary edema-suspect due to a combination of IVF overload and acute systolic CHF (Echo showed EF 55% and inferior wall hypokinesis, mod MR) Off BIPAP, off high flow NC , weaning off oxygen today. IV Lasix stopped 3)NSTEMI- with troponin peaked at 4.6 on 08/04/17-pt never experienced CP, but her nausea. suspect due to CHF and post op fluid overload Appreciate cardiology consult cont ASA, started BB on 08/06/17. Pt is on Coumadin, INR therapeutic 4) dyslipidemia LDL 137- pt is allergic to statins cont cardiac diet 5) HTN - BPs normal/stable - continue to hold home Amlodipine and Losartan/HCTZ for now 6) DVT PPx Coumadin 7) nausea: resolved 8)Acute post op anemia -Hb low but stable. Due to pt's overall volume overload would not transfuse. 9)Hypokalemia-replacing Thank you for this consult, will continue to follow Pt will be ready for discharge tomorrow
[2017-08-09] MEDS: Potassium Chlor TAB* 10 MEQ TAB.ER PO SCH (08:52)
[2017-08-09] MEDS: Metoprolol Tartrate TAB* 25 MG PO SCH (08:52)
[2017-08-09] MEDS: Docusate CAP* 100 MG PO SCH (08:52)
[2017-08-09] MEDS: Aspirin TAB* 325 MG PO SCH (08:52)
[2017-08-09] MEDS: Magnesium Hydroxide LIQ* 30 ML UDC PO SCH (08:52)
--- NOTE | 2017-08-09 09:32 | PN ---
Progress Note - Progress Note Date of Service: 08/09/17 SOAP: Subjective: Pt sitting comfortably at bedside. No complaint of pain. Denies CP, SOB, numbness and tingling. Objective: Dressing changed. Incision clean, dry and intact. Calves soft, nontender. 2+ DP pulses. Sensation intact to light touch. Vital Signs: Temp Pulse Resp BP Pulse Ox 99.7 F 68 20 138/49 92 08/09/17 07:21 08/09/17 07:21 08/09/17 08:00 08/09/17 07:21 08/09/17 08:00 Laboratory Last Values WBC 9.6 10^3/ul (3.5-10.8) 08/08/17 05:33 RBC 3.12 10^6/ul (4.0-5.4) L 08/08/17 05:33 Hgb 9.3 g/dl (12.0-16.0) L 08/08/17 05:33 Hct 27 % (35-47) L 08/08/17 05:33 MCV 88 fL (80-97) 08/08/17 05:33 MCH 30 pg (27-31) 08/08/17 05:33 MCHC 34 g/dl (31-36) 08/08/17 05:33 RDW 15 % (10.5-15) 08/08/17 05:33 Plt Count 343 10^3/ul (150-450) 08/08/17 05:33 MPV 8 um3 (7.4-10.4) 08/08/17 05:33 Neut % (Auto) 75.5 % (38-83) 08/07/17 05:28 Lymph % (Auto) 13.2 % (25-47) L 08/07/17 05:28 [place] % (Auto) 9.5 % (1-9) H 08/07/17 05:28 Eos % (Auto) 1.3 % (0-6) 08/07/17 05:28 Baso % (Auto) 0.5 % (0-2) 08/07/17 05:28 Absolute Neuts (auto) 7.3 10^3/ul (1.5-7.7) 08/07/17 05:28 Absolute Lymphs (auto) 1.3 10^3/ul (1.0-4.8) 08/07/17 05:28 Absolute Monos (auto) 0.9 10^3/ul (0-0.8) H 08/07/17 05:28 Absolute Eos (auto) 0.1 10^3/ul (0-0.6) 08/07/17 05:28 Absolute Basos (auto) 0.1 10^3/ul (0-0.2) 08/07/17 05:28 Absolute Nucleated RBC 0.01 10^3/ul 08/07/17 05:28 Nucleated RBC % 0.1 08/07/17 05:28 INR (Anticoag Therapy) 2.42 (0.89-1.11) H 08/09/17 04:28 Sodium 138 mmol/L (133-145) 08/08/17 05:33 Potassium 3.5 mmol/L (3.5-5.0) 08/08/17 05:33 Chloride 101 mmol/L (101-111) 08/08/17 05:33 Carbon Dioxide 32 mmol/L (22-32) 08/08/17 05:33 Anion Gap 5 mmol/L (2-11) 08/08/17 05:33 BUN 21 mg/dL (6-24) 08/08/17 05:33 Creatinine 0.68 mg/dL (0.51-0.95) 08/08/17 05:33 Est GFR ( Amer) 104.8 (>60) 08/08/17 05:33 Est GFR (Non-Af Amer) 81.5 (>60) 08/08/17 05:33 BUN/Creatinine Ratio 30.9 (8-20) H 08/08/17 05:33 Glucose 102 mg/dL (70-100) H 08/08/17 05:33 Calcium 8.7 mg/dL (8.6-10.3) 08/08/17 05:33 Magnesium 1.9 mg/dL (1.9-2.7) 08/08/17 05:33 Troponin I 3.71 ng/mL (<0.04) H* 08/05/17 05:15 Triglycerides 157 mg/dL 08/05/17 05:15 Cholesterol 214 mg/dL 08/05/17 05:15 LDL Cholesterol 137 mg/dL 08/05/17 05:15 HDL Cholesterol 45.6 mg/dL 08/05/17 05:15 Urine Color Straw 08/05/17 05:00 Urine Appearance Clear 08/05/17 05:00 Urine pH 5.0 (5-9) 08/05/17 05:00 Ur Specific [place] 1.006 (1.010-1.030) L 08/05/17 05:00 Urine Protein Negative (Negative) 08/05/17 05:00 Urine Ketones Negative (Negative) 08/05/17 05:00 Urine Blood 2+ (Negative) H 08/05/17 05:00 Urine Nitrate Negative (Negative) 08/05/17 05:00 Urine Bilirubin Negative (Negative) 08/05/17 05:00 Urine Urobilinogen Negative (Negative) 08/05/17 05:00 Ur Leukocyte Esterase Negative (Negative) 08/05/17 05:00 Urine WBC (Auto) Trace(0-5/hpf) (Absent) 08/05/17 05:00 Urine RBC (Auto) 2+(6-10/hpf) (Absent) H 08/05/17 05:00 Urine Bacteria Absent (Absent) 08/05/17 05:00 Hyaline Casts Present (Absent) H 08/05/17 05:00 Urine Glucose Negative (Negative) 08/05/17 05:00 Assessment: 89 yo female s/p left JOBY POD#7 Plan: OOB PT/OT WBAT LLE with hip precautions Pain control Hold coumadin today and tomorrow. INR 2.4 D/C home today
[2017-08-09 13:17] VITALS: BP 120/54
--- NOTE | 2017-08-09 14:38 | DS ---
CC: Dr. Jarrell; Dr. Dyson; Dr. Dumas; Dr. Altaf Harris* DISCHARGE SUMMARY: DATE OF ADMISSION: 08/02/17 DATE OF ANTICIPATED DISCHARGE: 08/09/17 This document is dictated the night prior to the patient's official discharge. PRIMARY CARE PROVIDER: Dr. Altaf Harris. DISCHARGE DIAGNOSES: 1. Status post elective left total hip arthroplasty with acetabular bone grafting. 2. Acute pulmonary edema that developed postoperatively with acute non-ST elevation myocardial infarction postoperatively. 3. Acute hypoxic respiratory failure due to the above-mentioned pulmonary edema and non-ST elevation myocardial infarction. The patient was transiently on BiPAP, then on Vapotherm, and currently is being weaned off oxygen to room air with anticipation of discharge on room air on 08/09/17. SECONDARY DIAGNOSES: 1. History of hypertension. 2. History of right hip replacement 6 months prior. 3. Dyslipidemia. 4. Osteoarthritis. 5. History of melanoma. MEDICATIONS AT DISCHARGE: Include: 1. Coumadin 2 mg daily. Next INR to be checked 2 days after discharge by visiting nurses. The results of the INR should be sent to Dr. Jarrell's office for further evaluation. INR on 08/08/17 was 2.69. 2. Aspirin 81 mg daily. 3. Zyrtec 10 mg daily. 4. Antivert 12.5 mg on a p.r.n. basis. 5. Metoprolol tartrate 25 mg b.i.d. 6. Scopolamine patch on a p.r.n. basis. LABORATORY DATA AND STUDIES PERFORMED DURING THE HOSPITAL STAY: Include: Once again on 08/08/17, INR was 2.69. Sodium of 138, potassium 3.5, chloride 101, carbon dioxide 32, BUN 21, creatinine 0.68. White blood cell count 9.6, hemoglobin 9.3, hematocrit of 27, and platelets 343. Troponin peaked at 4.64 on 08/04/17. Most recent portable chest x-ray obtained on 08/05/17, impression: "The constellation of findings is most consistent with alveolar and interstitial pulmonary edema with associated small effusions of significant interval worsening comparing with 08/04/17 exam." CONSULTATIONS DURING THE HOSPITAL STAY: Included: Dr. Dumas from Cardiology. Please note that the patient was originally admitted by Dr. Jarrell's service for orthopedic surgery and then is going to be discharged by the medicine service and the hospitalist service due to the complications postoperatively and postoperative NM. HOSPITALIZATION COURSE: Justo Tavares is a very nice 89-year-old female, who presented to the hospital for elective left hip arthroplasty with acetabular bone grafting that was performed on 08/02/17. Postoperatively, she looked very good and continued to 08/03/17, but on 08/04/17, she started complaining of nausea. Later on, she developed shortness of breath. She developed acute pulmonary edema. Her EKG showed ST depressions in lateral leads. Her troponin peaked at 0.64. She continued to progress with low systolic blood pressures and pulmonary edema to the point that she needed to be transferred to the intensive care unit on BiPAP. After treatment with BiPAP, she was able to be placed on Vapotherm, but initially required 20 L of Vapotherm due to severe hypoxemia. She gradually improved and actually did very well over the next 3 days. She was able to diurese with intravenous Lasix, which was gradually increased. Dr. Dyson saw the patient in Cardiology followup and placed the patient on metoprolol with good results. Her blood pressure improved and the day prior to discharge, she is still on 1 L of oxygen nasal cannula, but we are hoping to liberate her from oxygen by the time of discharge. She also ambulated very well with physical therapy and she will be ready to go home on . Her INR was therapeutic by the time of discharge and she is to continue with Coumadin on 2 mg dose with followup INRs a couple of days later to be obtained by visiting nurse services. In regards to her cardiac status, she had a transthoracic echocardiogram on , which showed good EF at 50% to 55% but there was focal wall motion abnormality present and mid basal inferior wall hypokinesis. She also was noted to have moderate mitral regurgitation and mild aortic stenosis with calculated aortic valve area of 1.7 cm. She was advised to continue medical treatment with beta sam. Unfortunately, statin could not be started due to the patient being allergic to STATINS. Her LDL cholesterol was 137 and she was recommended to continue cardiac diet at home. At discharge, the patient was recommended to follow up with Dr. Jarrell in approximately 2 weeks. She is also recommended to follow up with her primary care provider in 4 to 7 days. She is once again set up with [facility] for physical therapy and blood draws at discharge. For physical exam prior to discharge, please see daily progress notes. [id number]/[facility] #: [id number] [facility]Matthew
== END 2017-08-09 13:35 | disposition home health service (06) | DRG 469 ==
LOC: AA 10:25 → SSU 18:20 → MEDTELE 08-04 13:32 → ICU 08-05 03:52 → SSU 08-07 12:12
PROVIDERS: ADMIT Orthopaedic Surgery Adult Reconstructive Orthopaedic Surgery; ATTEND Internal Medicine
PROC: 0QU70JZ Supplement Left Upper Femur with Synthetic Substitute, Open Approach (ICD-10-PCS; 2017-08-02)
PROC: 0SRB04A Replacement of Left Hip Joint with Ceramic on Polyethylene Synthetic Substitute, Uncemented, Open Approach (ICD-10-PCS; principal; 2017-08-02 13:00)
PROC: 5A09357 Assistance with Respiratory Ventilation, Less than 24 Consecutive Hours, Continuous Positive Airway Pressure (ICD-10-PCS; 2017-08-05)
DX: M16.12 Unilateral primary osteoarthritis, left hip (principal); I21.4 Non-ST elevation (NSTEMI) myocardial infarction; J96.01 Acute respiratory failure with hypoxia; I50.43 Acute on chronic combined systolic (congestive) and diastolic (congestive) heart failure; D62 Acute posthemorrhagic anemia; I11.0 Hypertensive heart disease with heart failure; I08.3 Combined rheumatic disorders of mitral, aortic and tricuspid valves; Z96.641 Presence of right artificial hip joint; E78.5 Hyperlipidemia, unspecified; E87.6 Hypokalemia; R11.0 Nausea; Z85.820 Personal history of malignant melanoma of skin; Z80.3 Family history of malignant neoplasm of breast; Z80.1 Family history of malignant neoplasm of trachea, bronchus and lung; Z90.710 Acquired absence of both cervix and uterus; Z87.891 Personal history of nicotine dependence; Z79.82 Long term (current) use of aspirin
CPT/HCPCS: 36415; 62323; 71010; 80048; 80061; 81003; 81015; 83735; 84132; 84484; 85014; 85018; 85025; 85027; 85610; 88304; 88311; 93005; 93306; 94660; 94760; A9270-GY; C1713; C1776; J0690; J1100; J1240; J1650; J1885; J1940; J2250; J2270; J2405; J2704; J3010; J3475; J3480